=== PATIENT | male | born 1970 | race African-American/Black ===

== ENCOUNTER 2017-02-19 20:52 | Inpatient (IN) | payer OTHER ==
[~2017-02-19] VITALS: Ht 200.7 cm; Wt 166.5 kg
--- NOTE | 2017-02-20 00:45 | ERA ---
ER Documentation Chief Complaint Date/Time DATE: 02/20/17 TIME: 00:44 Chief Complaint Palpitation HPI The patient is a 47-year-old male, presenting to the ER because of palpitation intermittently for the last 2 days with shortness of breath, abdominal pain intermittently for the last 3 days, now sent with no vomiting, abdominal pain for 1 week with frequent urination. He also complained of chronic bilateral leg edema on the left than the right. He went to see his vascular surgeon today who sent him to the ER for further evaluation. He denies fever, chills, syncope, near syncope, chest pain with exertion or vomiting or diaphoresis. He does not smoke nor drink Past medical history: Diabetes mellitus, hypertension Past surgical history: None ROS All systems reviewed and are negative except as per history of present illness. Medications Home Meds Reported Medications Insulin Glargine* (Lantus*) 100 Unit/Ml Soln, SC BID, #1 VIAL 02/20/17 Gabapentin* (Gabapentin*) 600 Mg Tablet, 600 MG PO BID, #60 TAB 02/20/17 Hydrochlorothiazide* (Hydrochlorothiazide*) 25 Mg Tab, 25 MG PO DAILY, #30 TAB 02/20/17 Aspirin* (Aspirin* EC) 81 Mg Tablet.dr, 81 MG PO DAILY, TAB 02/20/17 Allergies Allergies: Coded Allergies: No Known Allergy (Unverified , 02/19/17) Physical Exam Vitals Vital Signs Date Time Temp Pulse Resp B/P Pulse Ox O2 Delivery O2 Flow Rate FiO2 02/20/17 01:40 106 20 143/97 99 Room Air 02/20/17 01:38 96 2.0 28 02/20/17 01:19 Nasal Cannula 2 02/19/17 21:01 99.8 132 20 144/101 96 Physical Exam Const: No acute distress. Head: Atraumatic. Eyes: Normal Conjunctiva. ENT: Normal External Ears, Nose and Mouth. Neck: Full range of motion. No meningismus. Resp: Clear to auscultation bilaterally. Cardio: Regular tachycardic Abd: Soft, non distended, normal bowel sounds, non tender. Skin: No petechiae or rashes. Back: No midline or flank tenderness. Ext: Bilateral calf tenderness, chronic discoloration, foul smell Neur: Awake and alert. No focal deficit Psych: Normal Mood and Affect. Result Diagram: 02/20/179902/20/17 0100 Results 24 hrs Laboratory Tests Test 02/19/17 21:03 02/20/17 00:55 02/20/17 01:00 02/20/17 01:10 Bedside Glucose 491mg/dL Blood Gas Specimen Source Blood arterial Arterial Blood Date Drawn 02/20/2017 1:28:41 AM Arterial Blood pH (Temp corrected) 7.455 Arterial Blood pCO2 (Temp correct) 32.1mmhg Arterial Blood pO2 (Temp corrected) 81.2mmHG Arterial Blood HCO3 22.1mmol/L Arterial Blood Base Excess -0.9mmol/L Arterial Blood Oxygen Saturation 95.6mmHG Ezequiel Test ACCEPTAB Arterial Blood Gas Puncture Site Right Radial Arterial Blood Carboxyhemoglobin 0.3% Arterial Blood Methemoglobin 0.5% Blood Gas A-a O2 Differential 73.4mmHg Oxyhemoglobin Percent 94.8% Total Hemoglobin 14.9g/dl Blood Gas Temperature 37.0C Blood Gas Actual Respiration Rate 22 Blood Gas Modality NASAL CANNULA FiO2 27.0% Blood Gas Notified Whom MG Blood Gas Notified Time 02/20/2017 1:35:17 AM White Blood Count 17.010^3/ul Red Blood Count 5.3910^6/ul Hemoglobin 14.1g/dl Hematocrit 41.0% Mean Corpuscular Volume 76.1fl Mean Corpuscular Hemoglobin 26.2pg Mean Corpuscular Hemoglobin Concent 34.4g/dl Red Cell Distribution Width 12.9% Platelet Count 77011^3/UL Mean Platelet Volume 10.5fl Neutrophils % 82.1% Lymphocytes % 8.0% Monocytes % 8.5% Eosinophils % 0.0% Basophils % 0.2% Nucleated Red Blood Cells % 0.0/100WBC Neutrophils # 14.010^3/ul Lymphocytes # 1.410^3/ul Monocytes # 1.410^3/ul Eosinophils # 0.010^3/ul Basophils # 0.010^3/ul Nucleated Red Blood Cells # 0.010^3/ul Prothrombin Time 15.3Sec Prothrombin Time Ratio 1.2 INR International Normalized Ratio 1.20 Activated Partial Thromboplast Time 31.3Sec D-Dimer 6864.82ng/ml D-Dimer Comment Sodium Level 126mmol/L Potassium Level 3.6mmol/L Chloride Level 90mmol/L Carbon Dioxide Level 25mmol/L Anion Gap 15 Blood Urea Nitrogen 10mg/dl Creatinine 1.09mg/dl Glucose Level 442mg/dl Calcium Level 8.5mg/dl Total Bilirubin 0.6mg/dl Direct Bilirubin 0.00mg/dl Indirect Bilirubin 0.6mg/dl Acetone Level (Chemistry) NEGATIVE Aspartate Amino Transf (AST/SGOT) 24IU/L Alanine Aminotransferase (ALT/SGPT) 27IU/L Alkaline Phosphatase 109IU/L Troponin I < 0.012ng/ml B-Type Natriuretic Peptide 62PG/ML Total Protein 8.0g/dl Albumin 4.0g/dl Globulin 4.00g/dl Albumin/Globulin Ratio 1.00 Lactic Acid Level 2.9mmol/L Test 02/20/17 01:49 02/20/17 03:35 02/20/17 04:18 Bedside Glucose 451mg/dL Lactic Acid Level 2.3mmol/L Bedside Urine pH (LAB) 5.5 Bedside Urine Protein (LAB) 2+ Bedside Urine Glucose (UA) 0.50% Bedside Urine Ketones (LAB) 3+ Bedside Urine Blood 2+ Bedside Urine Nitrite (LAB) Negative Bedside Urine Leukocyte Esterase (L Negative Current Medications Medications (Trade) Dose Ordered Sig/Hollie Route PRN Reason Start Time Stop Time Status Last Admin Dose Admin Sodium Chloride 5,220 ml @ 5,220 mls/hr BOLUS X1 ONCE IV 02/20/17 04:00 02/20/17 04:59 DC 02/20/17 04:07 Vancomycin HCl 250 ml @ 125 mls/hr ONCE IVPB 02/20/17 04:00 02/20/17 05:59 Levofloxacin/ Dextrose (Levaquin 750 Mg/ D5W 150 ml (Pmx)) 150 ml @ 100 mls/hr ONCE ONCE IVPB 02/20/17 04:00 02/20/17 05:29 02/20/17 04:07 Insulin Human Lispro (Humalog) 12 unit ONCE ONCE SC 02/20/17 03:39 02/20/17 03:40 DC 02/20/17 04:08 Enoxaparin Sodium (Lovenox) 160 mg Q12H SC 02/20/17 04:00 02/20/17 04:26 Procedures/MDM CT pulmonary angiogram is pending to rule out pulmonary embolism [place] [address] Radiology Main Line: [phone] DIAGNOSTIC IMAGING REPORT Patient: JUAN R MONTOYA : 1970 Age: 47 Sex: M MR #: [id number] DOS: 02/20/175 Ordering MD: AMAURY JORDAN MD Location: E/R Room/Bed: PROCEDURE: US bilateral lower extremity venous Doppler CLINICAL INDICATION: Bilateral swelling TECHNIQUE: Multiple sonographic images of the bilateral lower extremity deep venous system was obtained utilizing grayscale, color-flow, compressive sonography and Doppler imaging with augmentation. COMPARISON: There are no similar studies submitted for comparison. FINDINGS: There is normal compressibility and flow within the left common femoral, superficial femoral, popliteal, and calf veins. There is normal compressibility and flow within the right common femoral, superficial femoral, popliteal, and calf veins. IMPRESSION: No evidence of DVT within the lower extremities. RPTAT: HIKT .Ryan Law MD, MD Date Time Electronically viewed and signed by .Ryan Law MD, MD on 02/20/2017 01:58 .T/ CC: AMAURY JORDAN MD [place] [address] Radiology Main Line: [phone] DIAGNOSTIC IMAGING REPORT Patient: JUAN R MONTOYA : 1970 Age: 47 Sex: M MR #: [id number] DOS: 02/20/1754 Ordering MD: AMAURY JORDAN MD Location: E/R Room/Bed: PROCEDURE: XR Chest. CLINICAL INDICATION: Dyspnea. TECHNIQUE: Single frontal view of the chest. COMPARISON: None. FINDINGS: The cardiomediastinal silhouette is within normal limits. The lungs are clear. No signs of pleural fluid or pneumothorax are seen. The osseous structures and soft tissues are unremarkable. IMPRESSION: No evidence for active cardiopulmonary disease. RPTAT: [facility] Physician Shirley Date Time Electronically viewed and signed by Physician Shirley on 02/20/2017 01:19 RS/ CC: AMAURY JORDAN MD EKG: Read by emergency physician Rate/Rhythm: Sinus tachycardia 108 beats/min QRS, ST, T-waves: No ST elevation, no T inversion, artifacts Impression: Abnormal EKG MEDICAL MAKING DECISION: The patient is a 47-year-old male, presenting with acute severe sepsis, acute bilateral lower extremity cellulitis, acute diabetic hyperglycemia, acute hyponatremia, acute d-dimer elevation that is concerning for pulmonary embolism. He was treated with normal saline 30 mL/kg IV, vancomycin IV, Levaquin IV for acute severe sepsis, Humalog 12 units subcutaneously for acute hepatic hyperglycemia, Lovenox 160 mg subcu after discussing with the clinical pharmacist due to concerning for high probability of pulmonary embolism The differential diagnoses considered include but are not limited to asthma, COPD, pneumonia, pulmonary embolus, pleural effusion, congestive heart failure. Admit MDM: Patient's infectious symptoms have not stabilized and the patient is at risk of rapid decompensation. The patient will be admitted for careful hydration, antibiotic therapy, and infectious source control. Severe Sepsis criteria: Infectious source: Cellulitis End organ damage indicated by: Lactate > 2.0 mmol/L Sepsis Management: Time of recognition of severe sepsis/septic shock: 3:30 am Within 3 hours of recognition: Blood cultures x 2 before broad-spectrum antibiotics: Yes 30 ml/kg NS bolus completed Initial lactate 2.9 Repeat lactate pending Critical Care: Critical care time 35 minutes excluding billable procedure Emergent fluid management while maintaining close respiratory support. Provision of immediate and broad-spectrum antibiotic therapy. Simultaneous assessment for possible sources in order to direct targeted therapy. Consideration for invasive and chemical support to prevent cardiopulmonary collapse. Septic Shock Assessment: Any lactic acid > 4.0 no Persistent hypotension (SBP < 90 or 40 mmHg drop, MAP < 65) despite 30 mL/kg IV fluid bolusno Departure Diagnosis: Primary Impression: Severe sepsis Additional Impressions: Bilateral lower leg cellulitis Diabetes mellitus with hyperglycemia Hyponatremia Condition: Stable Comments I discussed the findings with the patient. I discussed the patient with his physician Dr. Shabazz who was made aware of the lab, the treatment, the patient condition the pending CT angiogram to rule out pulmonary embolism. The patient is admitted to telemetry AMAURY JORDAN MD Feb 20, 2017 00:45
--- NOTE | 2017-02-20 01:19 | RADRPT ---
PROCEDURE: XR Chest. CLINICAL INDICATION: Dyspnea. TECHNIQUE: Single frontal view of the chest. COMPARISON: None. FINDINGS: The cardiomediastinal silhouette is within normal limits. The lungs are clear. No signs of pleural f luid or pneumothorax are seen. The osseous structures and soft tissues are unremarkable. IMPRESSION: No evidence for active cardiopulmonary disease. RPTAT: [facility] Physician Shirley Date Time Electronically viewed and signed by Physician Shirley on 02/20/2017 01:19 RS/
[2017-02-20 01:35] LABS: ADD SCAN DIFF NO
[2017-02-20 01:36] LABS: AADO2 Arterial 73.4 mmHg (7.0-24.0); Allen Test ACCEPTAB; Arterial Base Excess -0.9 mmol/L (-3.0-3); Arterial COHb 0.3 % (0.0-3.0); Arterial Fraction of Oxyhgb 94.8 % (93.0-99.0); Arterial HCO3 22.1 mmol/L (22.0-26.0); Arterial MetHb 0.5 % (0.0-1.5); Arterial Total Hemglobin 14.9 g/dl (12.0-18.0); MODE NASAL CANNULA
[2017-02-20 01:41] LABS: BASOPHILS % 0.2 % (0.0-2.0); HEMOGLOBIN 14.1 g/dl (14.0-18.0); LYMPHOCYTES # 1.4 10^3/ul (0.8-2.9); MEAN CORPUSCULAR HEMOGLOBIN 26.2 pg (29.0-33.0); MEAN CORPUSCULAR HGB CONC 34.4 g/dl (32.0-37.0); MEAN CORPUSCULAR VOLUME 76.1 fl (82.0-101.0); MEAN PLATELET VOLUME 10.5 fl (7.4-10.4); MONOCYTE # 1.4 10^3/ul (0.3-0.9); MONOCYTES % 8.5 % (0.0-11.0); NEUTROPHILS % 82.1 % (39.0-77.0); PLATELET COUNT 279 10^3/UL (140-415); RED BLOOD COUNT 5.39 10^6/ul (4.70-6.10); RED CELL DISTRIBUTION WIDTH 12.9 % (11.5-14.5)
[2017-02-20 01:57] LABS: INR 1.2; PROTIME 15.3 Sec (12.2-14.2); PT RATIO 1.2
[2017-02-20 01:58] LABS: PARTIAL THROMBOPLASTIN TIME 31.3 Sec (25.0-35.0)
--- NOTE | 2017-02-20 01:59 | RADRPT ---
PROCEDURE: US bilateral lower extremity venous Doppler CLINICAL INDICATION: Bilateral swelling TECHNIQUE: Multiple sonographic images of the bilateral lower extremity deep venous system was obt ained utilizing grayscale, color-flow, compressive sonography and Doppler imaging with augmentation. COMPARISON: There are no similar studies submitted for comparison. FINDINGS: There is normal compressibility and flow within the left common femoral, superficial femoral, poplit eal, and calf veins. There is normal compressibility and flow within the right common femoral, superficial femoral, popli teal, and calf veins. IMPRESSION: No evidence of DVT within the lower extremities. RPTAT: HIKT .Ryan Law MD, MD Date Time Electronically viewed and signed by .Ryan Law MD, MD on 02/20/2017 01:58 .T/
[2017-02-20 02:16] LABS: D-DIMER 6864.82 ng/ml (<460)
[2017-02-20 03:07] LABS: ALANINE AMINOTRANSFERASE 27 IU/L (13-69); ALKALINE PHOSPHATASE 109 IU/L (42-121); ASPARTATE AMINO TRANSFERASE 24 IU/L (15-46); BILIRUBIN,INDIRECT 0.6 mg/dl (0-1.1); BILIRUBIN,TOTAL 0.6 mg/dl (0.2-1.3); BLOOD UREA NITROGEN 10 mg/dl (7-20); CALCIUM 8.5 mg/dl (8.4-10.2); CARBON DIOXIDE 25 mmol/L (21-31); CHLORIDE 90 mmol/L (97-110); CREATININE 1.09 mg/dl (0.61-1.24); POTASSIUM 3.6 mmol/L (3.5-5.1)
[2017-02-20 03:18] LABS: B-TYPE NATRIURETIC PEPTIDE 62 PG/ML (0-125)
[2017-02-20 03:22] LABS: GLUCOSE 442 mg/dl (70-220); TROPONIN-I < 0.012 ng/ml (0.00-0.12)
[2017-02-20 03:23] LABS: ACETONE NEGATIVE (NEGATIVE)
[2017-02-20] MEDS ORDERED: GABA-526 PO (03:24)
[2017-02-20] MEDS ORDERED: HYD25 PO (03:24)
[2017-02-20] MEDS ORDERED: LANT3I SC (03:24)
[2017-02-20] MEDS ORDERED: ASPI-664 PO (03:24)
[2017-02-20] MEDS ORDERED: INSULIN LISPRO 100 UNIT/ML VIAL SC ONE (03:39)
[2017-02-20] MEDS ORDERED: ENOXAPARIN 80 MG/0.8 ML SYG SC SCH (04:00)
[2017-02-20] MEDS ORDERED: VANCOMYCIN 1 GM (PMX) 250 ML IVPB SCH (04:00)
[2017-02-20] MEDS ORDERED: LEVOFLOXACIN 750MG/D5W (PMX) 150 ML IVPB ONE (04:00)
[2017-02-20] MEDS ORDERED: SOD CHLORIDE 0.9% IV ONE (04:00)
[2017-02-20 04:14] LABS: URINE BLOOD (Dip) POC 2+ (NEGATIVE)
[2017-02-20] MEDS ORDERED: IOHEXOL 300MG/ML 150 ML BTL ONE (05:44)
[2017-02-20] MEDS ORDERED: SOD CHLORIDE 0.9% 100 ML ONE (05:44)
--- NOTE | 2017-02-20 06:26 | RADRPT ---
PROCEDURE: CT angiogram of the chest with contrast. CLINICAL INDICATION: Chest pain. TECHNIQUE: CT angiogram of the chest was obtained using a multi-detector high-resolution CT. Con tiguous axial images were obtained during the dynamic injection of 100 cc of Omnipaque 300 intraveno us contrast. Coronal and sagittal reformatted images were obtained. 3-D reformatted images were al so obtained. Images were reviewed on a PACS workstation. One or more of the following dose reduction techniques were used: - Automated exposure control. - Adjustment of the mA and/or kV according to patient size. - Use of iterative reconstruction technique. Exam CTD/vol = 20.02 mGy. Total exam DLP = 802.15 mGy-cm. COMPARISON: None. FINDINGS: The main pulmonary artery followed to the segmental divisions are suboptimally opacified. There is no filling defect or evidence of central pulmonary embolism. Distal pulmonary arteries could not be evaluated due to suboptimal opacification. The heart is normal in size. There is no pericardial t hickening or effusion. The aorta is of normal course and caliber without evidence of aneurysm or di ssection. There is no evidence of chest wall mass. The visualized thyroid is unremarkable. There are no enla rged axillary lymph nodes. There are no enlarged mediastinal or hilar lymph nodes by CT criteria. There is mild bibasilar atelectasis. There is no parenchymal nodule or consolidation. There is no pleural effusion. The central tracheobronchial tree is within normal limits. There is a small hiatal hernia. Limited evaluation of the upper abdomen is unremarkable. IMPRESSION: No evidence of central pulmonary embolism or aortic dissection. Distal pulmonary arteries could not be evaluated due to suboptimal opacification. Mild bibasilar atelectasis. Small hiatal hernia. .Warren Chua MD, MD Date Time Electronically viewed and signed by .Warren Chua MD, MD on 02/20/2017 06:26 .T/
[2017-02-20] MEDS ORDERED: morphine 2 MG INJ IV PRN (08:30)
[2017-02-20] MEDS ORDERED: MAGNESIUM HYDROXIDE 30ML CUP PO PRN (08:30)
[2017-02-20] MEDS ORDERED: ACETAMINOPHEN 325 MG TAB PO PRN (08:30)
[2017-02-20] MEDS ORDERED: VANCOMYCIN IV PER PHARMACY XX SCH (08:30)
[2017-02-20] MEDS ORDERED: DOCUSATE SODIUM 100 MG CAP PO PRN (08:30)
[2017-02-20] MEDS ORDERED: METOCLOPRAMIDE 10 MG INJ IV ONE (08:30)
[2017-02-20] MEDS ORDERED: NACL 0.9% 3 ML SYG IV SCH (08:30)
[2017-02-20] MEDS ORDERED: METOCLOPRAMIDE 10 MG INJ IV PRN (08:30)
[2017-02-20] MEDS ORDERED: BISACODYL 10 MG SUPP PR PRN (08:30)
[2017-02-20] MEDS ORDERED: HYDROCODONE/APAP (5/325) TAB PO PRN ×2 (08:30)
[2017-02-20] MEDS: ASPIRIN (EC) 81 MG TAB PO SCH (08:52)
[2017-02-20] MEDS: GABAPENTIN 300 MG CAP PO SCH ×2 (08:55→21:27)
[2017-02-20] MEDS ORDERED: DEXTROSE 50% 50 ML SYRINGE IV PRN ×2 (09:00)
[2017-02-20] MEDS ORDERED: GLUCOSE GEL 15 GRAM TUBE PO PRN ×2 (09:00)
[2017-02-20] MEDS ORDERED: ENOXAPARIN 30 MG/0.3 ML SYG SC SCH (09:00)
[2017-02-20] MEDS ORDERED: LEVOFLOXACIN 750MG/D5W (PMX) 150 ML IVPB SCH (09:00)
[2017-02-20] MEDS ORDERED: GLUCOSE GEL 15 GRAM TUBE BUCCAL PRN (09:00)
[2017-02-20] MEDS ORDERED: GLUCAGON 1 MG INJ IM PRN (09:00)
[2017-02-20] MEDS: INSULIN GLARGINE [LANtus] 3 ML PEN SC SCH ×2 (09:10→21:21)
[2017-02-20] MEDS: SOD CHLORIDE 0.9% 1,000 ML IV SCH ×2 (09:12→16:33)
--- NOTE | 2017-02-20 09:13 | HP ---
Date/Time of Note Date/Time of Note DATE: 02/20/17 TIME: 08:52 Assessment/Plan VTE Prophylaxis VTE Prophylaxis Intervention: LMWH Assessment/Plan Assessment/Plan 47-year-old male: 1. Lower extremity cellulitis, acute on chronic, left lower extremity infection more acute than the right, patient noted to have foul-smelling coming out of both feet with areas of cyanosis possibly necrosis of his toes, he does have a chronic ulcer on his right great toe with a foul-smelling dressing. Wound care has been ordered, wound cultures to be collected, IV antibiotics, IV fluids, podiatry, infectious disease and vascular surgery consult ESR and CRP pending Further recommendation per podiatry and infectious disease. 2. Sepsis likely secondary to cellulitis and diabetic wound, trend lactic acid , IV fluids, follow up on cultures, continue current broad-spectrum antibiotics including vancomycin and Levaquin 3. Diabetes mellitus, uncontrolled. Resume adequate insulin regimen including long-acting and mealtime insulin along with sliding scale insulin. Check hemoglobin A1c. Continue IV fluids. Diabetic education will be ordered. 4. Hyponatremia, likely hypovolemic and secondary to hyperglycemia, corrected sodium level actually at 131, continue normal saline, blood sugar control. Renal function is stable 5. Nausea vomiting likely secondary to hypoglycemia, blood sugar control, Reglan and Zofran as needed. 6. Morbid obesity: Lifestyle modification 7. Bilateral lower extremity edema most likely consistent with lymphedema and poor venous return, also with ongoing infection, will treat underlying infection , Lasix as needed once more stable. Prophylaxis: Lovenox for DVT prophylaxis, Protonix for GI prophylaxis Disposition: Admit to telemetry, infectious disease vascular surgery and podiatry consult to be obtained. HPI/ROS Admit Date/Time Admit Date/Time Hx of Present Illness Chief complaint: Shortness of breath, left lower extremity redness History of presenting illness: This is a 47-year-old male with diabetes mellitus insulin-dependent, diabetic neuropathy, likely diabetic gastroparesis, chronic diabetic foot ulcer primarily right lower extremity with unfortunate poor hygiene and poor care to his lower extremities who apparently was referred to vascular surgery Dr. Henning and saw Dr. Henning yesterday who after evaluating him sent the patient to the emergency department for evaluation. The patient reports that for the past 2-3 days he has been having increasing shortness of breath, he had episodes of fevers and chills, he also noted increased erythema on his left lower extremity. Patient reports chronic wounds on his right lower extremity primarily and foul smell from his right lower extremity primarily which is at this point chronic. He has been going to a clinic for the past 2 years for care and recently changed his insurance therefore has been referred to a new physician. In the emergency department the patient was noted to be significantly tachycardic and seemed to be hypoxic therefore per emergency department physician he concentrated his study primarily on ruling out venous thromboembolism. Patient had Dopplers of the lower extremity which was negative for DVT, patient had CT angiogram of the chest due to an elevated d-dimer and it was negative for pulmonary embolus. He was treated for his lower extremity cellulitis with vancomycin and Levaquin, lactic acid is between 2.5 and 3.0. Vital signs are much more stable this morning patient did receive IV fluids which will be continued at this point. Patient is a diabetic likely noncompliant versus hypoglycemia due to infection but on arrival his blood sugar was up to 440. He will be receiving Lantus today along with sliding scale insulin there is no signs of DKA. Patient is admitted to telemetry primarily for diabetic foot infection and cellulitis. We will have podiatry, infectious disease and vascular surgery consulted. Patient also reports episode of abdominal pain some epigastric discomfort some discomfort in his chest also ongoing diarrhea, nausea and vomiting, he reports that it has happened to him before and is usually related to uncontrolled elevated blood sugar which leads me to believe that he is most likely has diabetic gastroparesis. ROS Constitutional: fatigue, nausea Eyes: no complaints ENT: no complaints Respiratory: shortness of breath Cardiovascular: no complaints Gastrointestinal: diarrhea, nausea, vomiting Genitourinary: no complaints Musculoskeletal: no complaints Skin: erythema (L>R lower ext ) Neurologic: no complaints PMH/Family/Social Past Medical History Morbid obesity Diabetes mellitus insulin-requiring Diabetic neuropathy Diabetic gastroparesis likely Diabetic foot ulcers Right foot Medical History: diabetes, hypertension Past Surgical History None Family History Significant Family History: no pertinent family hx Social History Alcohol Use: none Smoking Status: Never smoker Drug Use: none Exam/Review of Systems Vital Signs Vitals Vital Signs Date Time Temp Pulse Resp B/P Pulse Ox O2 Delivery O2 Flow Rate FiO2 02/20/17 07:10 90 18 112/68 98 Nasal Cannula 2.0 02/20/17 05:45 98.9 02/20/17 01:38 28 Exam Constitutional: alert, oriented, other (Obese), well developed Psych: no complaints Head: normocephalic Eyes: EOMI, nl conjunctiva Neck: supple Respiratory: clear to auscultation, normal air movement Cardiovascular: nl pulses, regular rate and rhythm Gastrointestinal: soft, tender (Minimal epigastric) Extremities: edema (Bilateral lower extremity, right greater than left), other (Erythema left lower leg greater than right, foul smell bilateral feet, cyanotic areas bilateral feet, ulcerations bilateral feet), tenderness ( Bilateral feet right greater than left) Neurological: ANTHROPOLOGY FACULTY MEMBER II-XII intact, lethargic, nl mental status, nl speech Labs Result Diagram: 02/20/17 01002/20/17 010 Medications Medications Home medications: Aspirin 81 mg p.o. daily Lantus 60 units subcutaneously nightly Gabapentin 600 mg p.o. twice daily Hydrochlorothiazide 25 mg p.o. daily Current Medications Aspirin (Halfprin) 81 mg DAILY PO ; Start 02/20/17 at 09:00 Gabapentin (Neurontin) 600 mg BID PO ; Start 02/20/17 at 09:00 Insulin Glargine (Lantus) 20 unit BID@08,20 SC ; Start 02/20/17 at 08:30 Diagnostic Test (Pha) 1 ea 1 ea 02 XX ; Start 02/21/17 at 02:00 Sodium Chloride (NS) 1,000 ml @ 125 mls/hr Q8H IV ; Start 02/20/17 at 08:30 Ondansetron HCl (Zofran Inj) 4 mg Q6H PRN IV NAUSEA AND/OR VOMITING; Start at 08:30; Status UNV Metoclopramide HCl (Reglan) 10 mg Q6H PRN IV NAUSEA AND/OR VOMITING; Start at 08:30; Status UNV Acetaminophen (Tylenol Tab) 650 mg Q6H PRN PO PAIN LEVEL 1-3 OR FEVER; Start at 08:30; Status UNV Acetaminophen/ Hydrocodone Bitart ([place] (5/325)) 1 tab Q6H PRN PO PAIN LEVEL 4 -6; Start 02/20/17 at 08:30; Status UNV Acetaminophen/ Hydrocodone Bitart ([place] (5/325)) 2 tab Q6H PRN PO PAIN LEVEL 7 -10; Start 02/20/17 at 08:30; Status UNV Morphine Sulfate (morphine) 2 mg Q4H PRN IV PAIN LEVEL 7-10; Start 02/20/17 at 08:30; Status UNV Docusate Sodium (Colace) 100 mg Q12H PRN PO CONSTIPATION; Start 02/20/17 at 08: 30; Status UNV Magnesium Hydroxide (Milk Of Mag) 30 ml DAILY PRN PO CONSTIPATION; Start at 08:30; Status UNV Bisacodyl (Dulcolax Supp) [address] CONSTIPATION; Start 02/20/17 at 08 :30; Status UNV Pantoprazole (Protonix Tab) 40 mg DAILY@06 PO ; Start 02/21/17 at 06:00; Status UNV Miscellaneous Information 1 ea NOTE XX ; Start 02/20/17 at 09:00 Glucose (Glutose) 15 gm Q15M PRN PO DECREASED GLUCOSE; Start 02/20/17 at 09:00 Glucose (Glutose) 22.5 gm Q15M PRN PO DECREASED GLUCOSE; Start 02/20/17 at 09: 00 Dextrose (D50w Syringe) 25 ml Q15M PRN IV DECREASED GLUCOSE; Start 02/20/17 at 09:00 Dextrose (D50w Syringe) 50 ml Q15M PRN IV DECREASED GLUCOSE; Start 02/20/17 at 09:00 Glucagon (Glucagen) 1 mg Q15M PRN IM DECREASED GLUCOSE; Start 02/20/17 at 09:00 Glucose (Glutose) 15 gm Q15M PRN BUCCAL DECREASED GLUCOSE; Start 02/20/17 at 09 :00 Enoxaparin Sodium 30 mg 30 mg BID SC ; Start 02/20/17 at 21:00 Levofloxacin/ Dextrose (Levaquin 750 Mg/ D5W 150 ml (Pmx)) 150 ml @ 100 mls/hr Q24H IVPB ; Start 02/21/17 at 04:00 Procedures Procedures PROCEDURE: US bilateral lower extremity venous Doppler CLINICAL INDICATION: Bilateral swelling TECHNIQUE: Multiple sonographic images of the bilateral lower extremity deep venous system was obtained utilizing grayscale, color-flow, compressive sonography and Doppler imaging with augmentation. COMPARISON: There are no similar studies submitted for comparison. FINDINGS: There is normal compressibility and flow within the left common femoral, superficial femoral, popliteal, and calf veins. There is normal compressibility and flow within the right common femoral, superficial femoral, popliteal, and calf veins. IMPRESSION: No evidence of DVT within the lower extremities. RPTAT: HIKT .Ryan Law MD, Date Time Electronically viewed and signed by .Ryan Law MD, on 02/20/2017 01:58 PROCEDURE: XR Chest. CLINICAL INDICATION: Dyspnea. TECHNIQUE: Single frontal view of the chest. COMPARISON: None. FINDINGS: The cardiomediastinal silhouette is within normal limits. The lungs are clear. No signs of pleural fluid or pneumothorax are seen. The osseous structures and soft tissues are unremarkable. IMPRESSION: No evidence for active cardiopulmonary disease. RPTAT: [facility] Physician Shirley Date Time Electronically viewed and signed by Physician Shirley on 02/20/2017 01:19 PROCEDURE: CT angiogram of the chest with contrast. CLINICAL INDICATION: Chest pain. TECHNIQUE: CT angiogram of the chest was obtained using a multi-detector high -resolution CT. Contiguous axial images were obtained during the dynamic injection of 100 cc of Omnipaque 300 intravenous contrast. Coronal and sagittal reformatted images were obtained. 3-D reformatted images were also obtained. Images were reviewed on a PACS workstation. One or more of the following dose reduction techniques were used: - Automated exposure control. - Adjustment of the mA and/or kV according to patient size. - Use of iterative reconstruction technique. Exam CTD/vol = 20.02 mGy. Total exam DLP = 802.15 mGy-cm. COMPARISON: None. FINDINGS: The main pulmonary artery followed to the segmental divisions are suboptimally opacified. There is no filling defect or evidence of central pulmonary embolism. Distal pulmonary arteries could not be evaluated due to suboptimal opacification. The heart is normal in size. There is no pericardial thickening or effusion. The aorta is of normal course and caliber without evidence of aneurysm or dissection. There is no evidence of chest wall mass. The visualized thyroid is unremarkable. There are no enlarged axillary lymph nodes. There are no enlarged mediastinal or hilar lymph nodes by CT criteria. There is mild bibasilar atelectasis. There is no parenchymal nodule or consolidation. There is no pleural effusion. The central tracheobronchial tree is within normal limits. There is a small hiatal hernia. Limited evaluation of the upper abdomen is unremarkable. IMPRESSION: No evidence of central pulmonary embolism or aortic dissection. Distal pulmonary arteries could not be evaluated due to suboptimal opacification. Mild bibasilar atelectasis. Small hiatal hernia. .Warren Chua MD, Date Time Electronically viewed and signed by .Warren Chua MD, on 02/20/2017 06:26 SALLY BOLANOS Feb 20, 2017 09:02
[2017-02-20] MEDS ORDERED: VANCOMYCIN 2 GM in SOD CHLORIDE 0.9% 500 ML IVPB SCH (09:30)
[2017-02-20 09:57] LABS: ADD SCAN DIFF NO; BASOPHILS % 0.3 % (0.0-2.0); EOSINOPHILS % 0.1 % (0.0-7.0); HEMATOCRIT 38.9 % (42.0-52.0); LYMPHOCYTES # 1.2 10^3/ul (0.8-2.9); LYMPHOCYTES % 8.5 % (15.0-51.0); MEAN CORPUSCULAR HEMOGLOBIN 26.2 pg (29.0-33.0); MEAN CORPUSCULAR HGB CONC 33.4 g/dl (32.0-37.0); MEAN CORPUSCULAR VOLUME 78.4 fl (82.0-101.0); MEAN PLATELET VOLUME 10.6 fl (7.4-10.4); MONOCYTE # 1.2 10^3/ul (0.3-0.9); MONOCYTES % 8.7 % (0.0-11.0); NEUTROPHIL # 11.1 10^3/ul (1.6-7.5); NEUTROPHILS % 81.4 % (39.0-77.0); PLATELET COUNT 236 10^3/UL (140-415); RED BLOOD COUNT 4.96 10^6/ul (4.70-6.10); RED CELL DISTRIBUTION WIDTH 12.9 % (11.5-14.5); WHITE BLOOD COUNT 13.6 10^3/ul (4.8-10.8)
[2017-02-20 10:06] LABS: CALCIUM 8.1 mg/dl (8.4-10.2); CREATININE 0.79 mg/dl (0.61-1.24); POTASSIUM 3.3 mmol/L (3.5-5.1)
[2017-02-20] MEDS: ONDANSETRON 4 MG INJ IV PRN (11:34)
[2017-02-20] MEDS: INSULIN ASPART [NOVOLOG] 3 ML PEN SC SCH ×5 (11:39→21:23)
[2017-02-20 14:00] VITALS: TEMP 98.6
[2017-02-20] MEDS: METOCLOPRAMIDE 10 MG INJ IV SCH (17:57)
--- NOTE | 2017-02-20 18:26 | CONS ---
Date/Time of Note Date/Time of Note DATE: 02/20/17 TIME: 18:24 Assessment/Plan Assessment/Plan Chief Complaint/Hosp Course 47-year-old M w/ diabetes mellitus recently started on insulin, neuropathy, morbid obesity with chronic BLE edema and foot wounds w/ evidence of arterial insufficiency on exam and outside arterial u/s Plan: -Appreciate medical management -Cont treatment for sepsis, hyperglycemia -Agree w/ Podiatry and wound care consult -Pt will need CTA of abd/pelvis w/ BLE runoff to further evaluate vasculature - will order -Will follow Thank you and please call with questions Problems: Consultation Date/Type/Reason Admit Date/Time Date of Consultation: Feb 20, 2017 Reason for Consultation BLE diabetic foot wounds and edema Referring Provider: SALLY BOLANOS of Present Illness 47-year-old M w/ diabetes mellitus recently started on insulin, neuropathy, morbid obesity with chronic BLE edema and foot wounds was initially seen and evaluated at outpatient Vascular Surgery clinic and found to be tachycardic, SOB , diaphoretic with unsteady gait and lethargy and was advised to be evaluated immediately at ER due to likely infectious source w/ possible sepsis. Pt was offered to wait for ambulance to bring to ER but pt vehemently refused and said he will go the ER on his own. He arrived overnight to ER. Pt says he had RLE edema and chronic 1st toe foot wound since 03/2016. He has not seen any physician until recently due to lack of insurance. He was started on insulin for DM only recently even though he was diagnosed over 6 years ago w/ DM. He says he wasn't on any DM treatment due to lack of insurance. He now says he has developed LLE edema along with new 3rd toe wound only recently. He also noted that in past few days, he has been having increasing shortness of breath, fevers and chills and increased redness on left lower extremity. In ER he was evaluated for possible PE/DVT, which was negative and then found to be septic and hyperglycemic (BG 400's) and was treated w/ IVF, insulin and abx. Patient was admitted to telemetry but still in ER due to bed availability. He currently feels better since arrival to ER and after treatment. His vitals and labs are improved. He had outside BLE arterial u/s that suggested possible R iliac artery disease. Constitutional: fatigue, nausea Eyes: no complaints ENT: no complaints Respiratory: shortness of breath Cardiovascular: no complaints Gastrointestinal: diarrhea, nausea, vomiting Genitourinary: increased urination Musculoskeletal: bilateral foot wounds Skin: erythema (L>RLE), swelling BLE Neurologic: no complaints Eyes: no complaints ENT: no complaints Respiratory: shortness of breath Cardiovascular: no complaints Gastrointestinal: diarrhea, nausea, vomiting Genitourinary: no complaints Musculoskeletal: no complaints Skin: erythema (L>R lower ext ) Neurologic: no complaints Psychological: no complaints Past Medical History Morbid obesity Diabetes mellitus insulin-requiring Diabetic neuropathy Diabetic gastroparesis Diabetic foot ulcers x1 year hypertension Chronic RLE edema Medical History: diabetes, hypertension Past Surgical History Denies Social History Alcohol Use: none Smoking Status: Never smoker Drug Use: none Exam/Review of Systems Vital Signs Vitals Vital Signs Date Time Temp Pulse Resp B/P Pulse Ox O2 Delivery O2 Flow Rate FiO2 02/20/17 16:00 92 18 126/71 98 Nasal Cannula 2.0 02/20/17 14:00 98.6 02/20/17 01:38 28 Exam Gen: Awake, alert, oriented x3, NAD Neck: supple Lungs: clear Heart: Reg Abd: obese, soft, NT, ND Extr: Marked BLE edema charles at distal legs w/ erythema; R foot 1st toe wound w/ foul-smelling odor, mild drainage; L foot 3rd toe wound w/ malodor as well, mild drainage Pulses: Palp L femoral and DP pulses; non-palp RLE pulses Results Result Diagram: 02/20/17 0943 02/20/17 0913 Results 24 hrs Laboratory Tests Test 02/19/17 21:03 02/20/17 00:55 02/20/17 01:00 02/20/17 01:10 Bedside Glucose 491 *H Blood Gas Specimen Source Blood arterial Arterial Blood Date Drawn 02/20/2017 1:28:41 AM Arterial Blood pH (Temp corrected) 7.455 H Arterial Blood pCO2 (Temp correct) 32.1 L Arterial Blood pO2 (Temp corrected) 81.2 Arterial Blood HCO3 22.1 Arterial Blood Base Excess -0.9 Arterial Blood Oxygen Saturation 95.6 Ezequiel Test ACCEPTAB Arterial Blood Gas Puncture Site Right Radial Arterial Blood Carboxyhemoglobin 0.3 Arterial Blood Methemoglobin 0.5 Blood Gas A-a O2 Differential 73.4 H Oxyhemoglobin Percent 94.8 Total Hemoglobin 14.9 Blood Gas Temperature 37.0 Blood Gas Actual Respiration Rate 22 Blood Gas Modality NASAL CANNULA FiO2 27.0 Blood Gas Notified Whom MG Blood Gas Notified Time 02/20/2017 1:35:17 AM White Blood Count 17.0 H Red Blood Count 5.39 Hemoglobin 14.1 Hematocrit 41.0 L Mean Corpuscular Volume 76.1 L Mean Corpuscular Hemoglobin 26.2 L Mean Corpuscular Hemoglobin Concent 34.4 Red Cell Distribution Width 12.9 Platelet Count 279 Mean Platelet Volume 10.5 H Neutrophils % 82.1 H Lymphocytes % 8.0 L Monocytes % 8.5 Eosinophils % 0.0 Basophils % 0.2 Nucleated Red Blood Cells % 0.0 Neutrophils # 14.0 H Lymphocytes # 1.4 Monocytes # 1.4 H Eosinophils # 0.0 Basophils # 0.0 Nucleated Red Blood Cells # 0.0 Prothrombin Time 15.3 H Prothrombin Time Ratio 1.2 INR International Normalized Ratio 1.20 Activated Partial Thromboplast Time 31.3 D-Dimer 6864.82 H D-Dimer Comment Sodium Level 126 L Potassium Level 3.6 Chloride Level 90 L Carbon Dioxide Level 25 Anion Gap 15 Blood Urea Nitrogen 10 Creatinine 1.09 Glucose Level 442 *H Hemoglobin A1c 12.2 H Calcium Level 8.5 Total Bilirubin 0.6 Direct Bilirubin 0.00 Indirect Bilirubin 0.6 Acetone Level (Chemistry) NEGATIVE Aspartate Amino Transf (AST/SGOT) 24 Alanine Aminotransferase (ALT/SGPT) 27 Alkaline Phosphatase 109 Troponin I < 0.012 B-Type Natriuretic Peptide 62 Total Protein 8.0 Albumin 4.0 Globulin 4.00 H Albumin/Globulin Ratio 1.00 Lactic Acid Level 2.9 *H Test 02/20/17 01:49 02/20/17 03:35 02/20/17 04:18 02/20/17 06:53 Bedside Glucose 451 *H Lactic Acid Level 2.3 *H 3.0 *H Bedside Urine pH (LAB) 5.5 Bedside Urine Protein (LAB) 2+ H Bedside Urine Glucose (UA) 0.50% H Bedside Urine Ketones (LAB) 3+ H Bedside Urine Blood 2+ H Bedside Urine Nitrite (LAB) Negative Bedside Urine Leukocyte Esterase (L Negative Test 02/20/17 09:01 02/20/17 09:13 02/20/17 09:43 02/20/17 10:18 Bedside Glucose 294 H Sodium Level 127 L Potassium Level 3.3 L Chloride Level 95 L Carbon Dioxide Level 26 Anion Gap 9 # Blood Urea Nitrogen 9 Creatinine 0.79 Glucose Level 316 H Lactic Acid Level 2.6 *H Calcium Level 8.1 L White Blood Count 13.6 H Red Blood Count 4.96 Hemoglobin 13.0 L Hematocrit 38.9 L Mean Corpuscular Volume 78.4 L Mean Corpuscular Hemoglobin 26.2 L Mean Corpuscular Hemoglobin Concent 33.4 Red Cell Distribution Width 12.9 Platelet Count 236 Mean Platelet Volume 10.6 H Neutrophils % 81.4 H Lymphocytes % 8.5 L Monocytes % 8.7 Eosinophils % 0.1 Basophils % 0.3 Nucleated Red Blood Cells % 0.0 Neutrophils # 11.1 H Lymphocytes # 1.2 Monocytes # 1.2 H Eosinophils # 0.0 Basophils # 0.0 Nucleated Red Blood Cells # 0.0 C-Reactive Protein 35.5 H Erythrocyte Sedimentation Rate 90 H Test 02/20/17 11:29 02/20/17 17:53 Bedside Glucose 344 H 215 Medications Medications Current Medications Aspirin (Halfprin) 81 mg DAILY PO Last administered on 02/20/17 08:52; Admin Dose 81 MG; Start 02/20/17 at 09:00 Gabapentin (Neurontin) 600 mg BID PO Last administered on 02/20/17 08:55; Admin Dose 600 MG; Start 02/20/17 at 09:00 Insulin Glargine (Lantus) 20 unit BID@08,20 SC Last administered on 02/20/17 09:10; Admin Dose 20 UNIT; Start 02/20/17 at 08:30 Diagnostic Test (Pha) 1 ea 1 ea 02 XX ; Start 02/21/17 at 02:00 Sodium Chloride (NS) 1,000 ml @ 125 mls/hr Q8H IV Last administered on 16:33; Admin Dose 125 MLS/HR; Start 02/20/17 at 08:30 Ondansetron HCl (Zofran Inj) 4 mg Q6H PRN IV NAUSEA AND/OR VOMITING Last administered on 02/20/17 11:34; Admin Dose 4 MG; Start 02/20/17 at 08:30 Metoclopramide HCl (Reglan) 10 mg Q6H PRN IV NAUSEA AND/OR VOMITING Last administered on 02/20/17t 15:56; Admin Dose 10 MG; Start 02/20/17 at 08:30 Acetaminophen (Tylenol Tab) 650 mg Q6H PRN PO PAIN LEVEL 1-3 OR FEVER; Start at 08:30 Acetaminophen/ Hydrocodone Bitart ([place] (5/325)) 1 tab Q6H PRN PO PAIN LEVEL 4 -6; Start 02/20/17 at 08:30 Acetaminophen/ Hydrocodone Bitart ([place] (5/325)) 2 tab Q6H PRN PO PAIN LEVEL 7 -10; Start 02/20/17 at 08:30 Morphine Sulfate (morphine) 2 mg Q4H PRN IV PAIN LEVEL 7-10; Start 02/20/17 at 08:30 Docusate Sodium (Colace) 100 mg Q12H PRN PO CONSTIPATION; Start 02/20/17 at 08: 30 Magnesium Hydroxide (Milk Of Mag) 30 ml DAILY PRN PO CONSTIPATION; Start at 08:30 Bisacodyl (Dulcolax Supp) 10 mg DAILY PRN [place] CONSTIPATION; Start 02/20/17 at 08 :30 Pantoprazole (Protonix Tab) 40 mg DAILY@06 PO ; Start 02/21/17 at 06:00 Miscellaneous Information 1 ea NOTE XX ; Start 02/20/17 at 09:00 Glucose (Glutose) 15 gm Q15M PRN PO DECREASED GLUCOSE; Start 02/20/17 at 09:00 Glucose (Glutose) 22.5 gm Q15M PRN PO DECREASED GLUCOSE; Start 02/20/17 at 09: 00 Dextrose (D50w Syringe) 25 ml Q15M PRN IV DECREASED GLUCOSE; Start 02/20/17 at 09:00 Dextrose (D50w Syringe) 50 ml Q15M PRN IV DECREASED GLUCOSE; Start 02/20/17 at 09:00 Glucagon (Glucagen) 1 mg Q15M PRN IM DECREASED GLUCOSE; Start 02/20/17 at 09:00 Glucose (Glutose) 15 gm Q15M PRN BUCCAL DECREASED GLUCOSE; Start 02/20/17 at 09 :00 Enoxaparin Sodium 30 mg 30 mg BID SC ; Start 02/20/17 at 21:00 Levofloxacin/ Dextrose 150 ml @ 100 mls/hr Q24H IVPB ; Start 02/21/17 at 04:00 Vancomycin HCl/ Sodium Chloride (Vancocin/NS) 250 ml @ 83.333 mls/ hr Q12H IVPB ; Start 02/20/17 at 22:00 Miscellaneous Information (*Rx Drug Level Order Reminder*) VANCOMYCIN TROUGH ON 02/07... ONCE ONCE XX ; Start 02/21/17 at 21:00; Stop 02/21/17 at 21:01 Metoclopramide HCl (Reglan) 10 mg Q6 IV ; Start 02/20/17 at 18:00 VIKRAM HERNANDEZ MD Feb 20, 2017 18:26
[2017-02-20 18:34] LABS: ANION GAP 21 (8-16); SODIUM 132 mmol/L (135-144)
[2017-02-20 20:35] VITALS: BP 115/59; RESP 18
[2017-02-20 20:36] VITALS: PULSE 96
[2017-02-20 20:40] VITALS: Ht 200.7 cm; Wt 166.5 kg
[2017-02-20] MEDS: ENOXAPARIN 30 MG/0.3 ML SYG SC SCH (21:24)
[2017-02-20 22:31] VITALS: BP 112/66; PULSE 90; RESP 20
[2017-02-20] MEDS: VANCOMYCIN 1.5 GM in SOD CHLORIDE 0.9% 250 ML IVPB SCH (23:59)
[2017-02-21] VITALS (12 sets, daily range): BP systolic 101–129; BP diastolic 56–75; PULSE 96–108; RESP 16–21
[2017-02-21] MEDS: SOD CHLORIDE 0.9% 1,000 ML IV SCH ×3 (00:30→15:48)
[2017-02-21] MEDS: METOCLOPRAMIDE 10 MG INJ IV SCH ×4 (00:39→18:19)
[2017-02-21] MEDS ORDERED: PENDING SANTYL ORDER FOR WOUND CARE XX PRN (01:00)
[2017-02-21] MEDS ORDERED: hydrALAzine 20 MG INJ IV PRN (01:00)
[2017-02-21] MEDS: ACCU-CHEK XX SCH (02:00)
[2017-02-21] MEDS: LEVOFLOXACIN 750MG/D5W (PMX) 150 ML IVPB SCH (04:00)
[2017-02-21] MEDS: PANTOPRAZOLE (EC) 40 MG TAB PO SCH (05:20)
[2017-02-21] MEDS: INSULIN ASPART [NOVOLOG] 3 ML PEN SC SCH ×7 (08:00→21:00)
[2017-02-21] MEDS: INSULIN GLARGINE [LANtus] 3 ML PEN SC SCH ×2 (08:16→22:16)
[2017-02-21 08:17] LABS: ADD SCAN DIFF NO
[2017-02-21 08:24] LABS: BASOPHILS % 0.2 % (0.0-2.0); EOSINOPHILS % 0.1 % (0.0-7.0); HEMATOCRIT 35.8 % (42.0-52.0); HEMOGLOBIN 12.1 g/dl (14.0-18.0); LYMPHOCYTES % 7.6 % (15.0-51.0); MEAN CORPUSCULAR HEMOGLOBIN 25.6 pg (29.0-33.0); MEAN CORPUSCULAR HGB CONC 33.8 g/dl (32.0-37.0); MEAN CORPUSCULAR VOLUME 75.7 fl (82.0-101.0); MEAN PLATELET VOLUME 10.2 fl (7.4-10.4); MONOCYTE # 0.9 10^3/ul (0.3-0.9); MONOCYTES % 6.6 % (0.0-11.0); NEUTROPHIL # 11.2 10^3/ul (1.6-7.5); NEUTROPHILS % 84.4 % (39.0-77.0); PLATELET COUNT 264 10^3/UL (140-415); RED BLOOD COUNT 4.73 10^6/ul (4.70-6.10); WHITE BLOOD COUNT 13.3 10^3/ul (4.8-10.8)
[2017-02-21 08:37] LABS: CREATININE 0.78 mg/dl (0.61-1.24); MAGNESIUM 1.8 mg/dl (1.7-2.5)
[2017-02-21] MEDS ORDERED: SOD CHLORIDE 0.9% 100 ML ONE (10:16)
[2017-02-21] MEDS ORDERED: IOHEXOL 100 ML ONE (10:16)
[2017-02-21] MEDS ORDERED: IOHEXOL 350MG/ML 50 ML BTL ONE (10:16)
--- NOTE | 2017-02-21 10:37 | CONS ---
Date/Time of Note Date/Time of Note DATE: 02/21/17 TIME: 10:23 Assessment/Plan Assessment/Plan Problems: (1) Open wound of right foot (2) Cellulitis of right foot (3) Diabetes mellitus with hyperglycemia Status: Acute (4) Bilateral lower leg cellulitis Status: Acute Additional Assessment/Plan Patient's condition is severe and his prognosis is poor. I have discussed and counseled extensively regarding his condition. He is going to require surgical management to initially include debridement of the necrotic tissue and bone culture. Patient may end up having need for amputation of the left hallux and left second toe along with amputation of the right third toe pending failed treatment with debridements and IV antibiotics. I also recommend highly to have patient evaluated for hyperbaric oxygen treatment. This can be done as an outpatient basis. Ordered MRI and X-Ray of bilateral feet. Will follow up with imaging studies when available. Thank you again for involving me in the care of this patient. If you have any questions regarding this case, please feel free to contact me at pager: [phone] or reach me at mobile: [phone]. Consultation Date/Type/Reason Admit Date/Time Date of Consultation: Feb 21, 2017 Type of Consultation: Foot and ankle surgery Reason for Consultation Open wound right big toe Hx of Present Illness Thank you very much for involving me in the care of this patient. As you very well know this is a 47-year-old male patient with multiple medical problems including diabetes mellitus, diabetic neuropathy, chronic diabetic foot ulcer who presented to the emergency room with bad hygiene with infection of his right foot. I was consulted for evaluation and treatment. Patient has been seeing vascular surgery, Dr. Henning who apparently saw the patient yesterday and sent him to the emergency room for further evaluation. Patient reports of increased episodes of shortness of breath, fever and chills recently. Patient reports that he had increased smell from his foot. Constitutional: No chills, No diaphoresis, No disoriented, No febrile, No improved, No no complaints, No other, No poor po, No requiring IVF, No requiring O2 Eyes: no complaints, No discharge, No other, No pain, No redness, No visual change ENT: no complaints, No bleeding, No congestion, No discharge, No dysphagia, No other, No pain, No sore throat Respiratory: shortness of breath, No cough, No no complaints, No other, No pain, No pleuritic pain, No sputum, No wheezing Cardiovascular: no complaints Gastrointestinal: diarrhea, nausea, vomiting Genitourinary: no complaints Musculoskeletal: no complaints Skin: erythema (L>R lower ext ) Neurologic: no complaints Psychological: no complaints Past Medical History As per history of present illness. Medical History: diabetes, hypertension Past Surgical History As per history of present illness. Social History As per history of present illness. Alcohol Use: none Smoking Status: Never smoker Drug Use: none Exam/Review of Systems Vital Signs Vitals Vital Signs Date Time Temp Pulse Resp B/P Pulse Ox O2 Delivery O2 Flow Rate FiO2 02/21/17 08:20 103 02/21/17 08:20 98.0 18 121/75 98 02/20/17 22:31 Nasal Cannula 02/20/17 18:00 2.0 02/20/17 01:38 28 Intake and Output 02/20/17 02/20/17 02/21/17 15:00 23:00 07:00 Intake Total 800 ml Output Total 1800 ml 800 ml 900 ml Balance -1800 ml -800 ml -100 ml Exam Morbidly obese male in no acute distress. Patient has an open wound on the plantar medial aspect of the right hallux with necrosis of the center and hyperkeratosis surrounding the wound. There is small amount of bleeding present. Necrosis extends to the subcutaneous tissue along with tendon and joint capsule. There is small bowel are present. Second toe plantarly also looks dusky. Left foot third toe edema and discoloration noted as well. There is edema of bilateral heels and posterior heel area. Labs reviewed. Imaging reviewed. Results Result Diagram: 02/21/17 0808 02/21/17 0808 Results 24 hrs Laboratory Tests Test 02/20/17 11:29 02/20/17 17:53 02/20/17 21:19 02/21/17 02:19 Bedside Glucose 344 H 215 182 227 H Test 02/21/17 08:08 02/21/17 08:12 White Blood Count 13.3 H Red Blood Count 4.73 Hemoglobin 12.1 L Hematocrit 35.8 L Mean Corpuscular Volume 75.7 L Mean Corpuscular Hemoglobin 25.6 L Mean Corpuscular Hemoglobin Concent 33.8 Red Cell Distribution Width 13.0 Platelet Count 264 Mean Platelet Volume 10.2 Neutrophils % 84.4 H Lymphocytes % 7.6 L Monocytes % 6.6 Eosinophils % 0.1 Basophils % 0.2 Nucleated Red Blood Cells % 0.0 Neutrophils # 11.2 H Lymphocytes # 1.0 Monocytes # 0.9 Eosinophils # 0.0 Basophils # 0.0 Nucleated Red Blood Cells # 0.0 Sodium Level 137 Potassium Level 3.0 L Chloride Level 101 Carbon Dioxide Level 25 Anion Gap 14 Blood Urea Nitrogen 7 Creatinine 0.78 Glucose Level 212 # Calcium Level 8.0 L Magnesium Level 1.8 Triglycerides Level 62 Cholesterol Level 80 L LDL Cholesterol, Calculated 48 HDL Cholesterol 20 L Cholesterol/HDL Ratio 4.0 Bedside Glucose 229 H Medications Medications Current Medications Aspirin (Halfprin) 81 mg DAILY PO Last administered on 02/20/17 08:52; Admin Dose 81 MG; Start 02/20/17 at 09:00 Gabapentin (Neurontin) 600 mg BID PO Last administered on 02/20/17 21:27; Admin Dose 600 MG; Start 02/20/17 at 09:00 Insulin Glargine (Lantus) 20 unit BID@08,20 SC Last administered on 02/21/17 08:16; Admin Dose 20 UNIT; Start 02/20/17 at 08:30 Diagnostic Test (Pha) 1 ea 1 ea 02 XX ; Start 02/21/17 at 02:00 Sodium Chloride (NS) 1,000 ml @ 125 mls/hr Q8H IV Last administered on 08:18; Admin Dose 125 MLS/HR; Start 02/20/17 at 08:30 Ondansetron HCl (Zofran Inj) 4 mg Q6H PRN IV NAUSEA AND/OR VOMITING Last administered on 02/20/17 11:34; Admin Dose 4 MG; Start 02/20/17 at 08:30 Metoclopramide HCl (Reglan) 10 mg Q6H PRN IV NAUSEA AND/OR VOMITING Last administered on 02/20/17 15:56; Admin Dose 10 MG; Start 02/20/17 at 08:30 Acetaminophen (Tylenol Tab) 650 mg Q6H PRN PO PAIN LEVEL 1-3 OR FEVER; Start at 08:30 Acetaminophen/ Hydrocodone Bitart ([place] (5/325)) 1 tab Q6H PRN PO PAIN LEVEL 4 -6; Start 02/20/17 at 08:30 Acetaminophen/ Hydrocodone Bitart ([place] (5/325)) 2 tab Q6H PRN PO PAIN LEVEL 7 -10; Start 02/20/17 at 08:30 Morphine Sulfate (morphine) 2 mg Q4H PRN IV PAIN LEVEL 7-10; Start 02/20/17 at 08:30 Docusate Sodium (Colace) 100 mg Q12H PRN PO CONSTIPATION; Start 02/20/17 at 08: 30 Magnesium Hydroxide (Milk Of Mag) 30 ml DAILY PRN PO CONSTIPATION; Start at 08:30 Bisacodyl (Dulcolax Supp) [address] CONSTIPATION; Start 02/20/17 at 08 :30 Pantoprazole (Protonix Tab) 40 mg DAILY@06 PO Last administered on 02/21/17 05 :20; Admin Dose 40 MG; Start 02/21/17 at 06:00 Miscellaneous Information 1 ea NOTE XX ; Start 02/20/17 at 09:00 Glucose (Glutose) 15 gm Q15M PRN PO DECREASED GLUCOSE; Start 02/20/17 at 09:00 Glucose (Glutose) 22.5 gm Q15M PRN PO DECREASED GLUCOSE; Start 02/20/17 at 09: 00 Dextrose (D50w Syringe) 25 ml Q15M PRN IV DECREASED GLUCOSE; Start 02/20/17 at 09:00 Dextrose (D50w Syringe) 50 ml Q15M PRN IV DECREASED GLUCOSE; Start 02/20/17 at 09:00 Glucagon (Glucagen) 1 mg Q15M PRN IM DECREASED GLUCOSE; Start 02/20/17 at 09:00 Glucose (Glutose) 15 gm Q15M PRN BUCCAL DECREASED GLUCOSE; Start 02/20/17 at 09 :00 Enoxaparin Sodium 30 mg 30 mg BID SC Last administered on 02/20/17 21:24; Admin Dose 30 MG; Start 02/20/17 at 21:00 Levofloxacin/ Dextrose 150 ml @ 100 mls/hr Q24H IVPB Last administered on 02/21 04:00; Admin Dose 100 MLS/HR; Start 02/21/17 at 04:00 Vancomycin HCl/ Sodium Chloride (Vancocin/NS) 250 ml @ 83.333 mls/ hr Q12H IVPB Last administered on 02/20/17 23:59; Admin Dose 83.333 MLS/HR; Start at 22:00 Miscellaneous Information (*Rx Drug Level Order Reminder*) VANCOMYCIN TROUGH ON 02/07... ONCE ONCE XX ; Start 02/21/17 at 21:00; Stop 02/21/17 at 21:01 Metoclopramide HCl (Reglan) 10 mg Q6 IV Last administered on 02/21/17 05:20; Admin Dose 10 MG; Start 02/20/17 at 18:00 Miscellaneous Information (Pending Santyl Order For Wound Care) This patient trujillo... PRN PRN XX WOUND CARE; Start 02/21/17 at 01:00 BOOGIE GRIFFIN DPM Feb 21, 2017 10:35
[2017-02-21] MEDS ORDERED: POTASSIUM CHLORIDE (SR) 20 MEQ TAB PO STA (10:39)
--- NOTE | 2017-02-21 10:52 | PN ---
Date/Time of Note Date/Time of Note DATE: 02/21/17 TIME: 10:37 Assessment/Plan VTE Prophylaxis VTE Prophylaxis Intervention: LMWH Lines/Catheters IV C[facility]ter Type (from [facility] Urinary Cath still in place: No Assessment/Plan Assessment/Plan 47-year-old male: 1. Lower extremity cellulitis, acute on chronic, left lower extremity infection more acute than the right, but also likely with right big toe osteomyelitis. ESR and CRP elevated. Wound care ordered, wound cultures pending Continue IV antibiotics, IV fluids, Podiatry, infectious disease and vascular surgery to follow. Further recommendation per podiatry and infectious disease. 2. Sepsis likely secondary to cellulitis and diabetic wound with probable osteo Lactic acid better Continue IV fluids and current broad-spectrum antibiotics including vancomycin and Levaquin F/u ID recs 3. Diabetes mellitus, uncontrolled. A1c 12.2 Titrate insulin regimen including long-acting and mealtime insulin along with sliding scale insulin as needed Continue IV fluids. Diabetic education ordered. 4. Hyponatremia, likely hypovolemic and secondary to hyperglycemia, resolved Continue IVF, normal saline, blood sugar control. Renal function is stable 5. Nausea vomiting likely secondary to hypoglycemia, resolved with better control of blood sugar Continue Reglan scheduled and Zofran as needed. 6. Morbid obesity: Lifestyle modification 7. Bilateral lower extremity edema most likely consistent with lymphedema and poor venous return, also with ongoing infection, Treat underlying infection, Lasix as needed. 8. Hypokalemia: replete K and mag . Prophylaxis: Lovenox for DVT prophylaxis, Protonix for GI prophylaxis Disposition: On telemetry, follow up vascular and further podiatry consult recommendations, ID consult and PICC line placement by Thursday. Subjective 24 Hr Interval Summary Free Text/Dictation Patient stable hemodynamically Appreciate eval from Dr Knott and Dr Strauss, likely to need surgical amputation of right big toe at least and fondings c/w with osteo MRI and XR of feet pending Exam/Review of Systems Vital Signs Vitals Vital Signs Date Time Temp Pulse Resp B/P Pulse Ox O2 Delivery O2 Flow Rate FiO2 02/21/17 08:20 103 02/21/17 08:20 98.0 18 121/75 98 02/20/17 22:31 Nasal Cannula 02/20/17 18:00 2.0 02/20/17 01:38 28 Intake and Output 02/20/17 02/20/17 02/21/17 15:00 23:00 07:00 Intake Total 800 ml Output Total 1800 ml 800 ml 900 ml Balance -1800 ml -800 ml -100 ml Exam Constitutional: alert, obese, oriented, well developed Respiratory: clear to auscultation, normal air movement Cardiovascular: nl pulses, regular rate and rhythm Gastrointestinal: non-tender, soft Musculoskeletal: other (ischemia of some of the toes and also right toe wound with osteo on exam ) Neurological: STONE ROUGHER II-XII intact, lethargic, nl mental status, nl speech Results Result Diagram: 02/21/17 0808 02/21/17 0808 Results 24 hrs Laboratory Tests Test 02/20/17 11:29 02/20/17 17:53 02/20/17 21:19 02/21/17 02:19 Bedside Glucose 344 H 215 182 227 H Test 02/21/17 08:08 02/21/17 08:12 White Blood Count 13.3 H Red Blood Count 4.73 Hemoglobin 12.1 L Hematocrit 35.8 L Mean Corpuscular Volume 75.7 L Mean Corpuscular Hemoglobin 25.6 L Mean Corpuscular Hemoglobin Concent 33.8 Red Cell Distribution Width 13.0 Platelet Count 264 Mean Platelet Volume 10.2 Neutrophils % 84.4 H Lymphocytes % 7.6 L Monocytes % 6.6 Eosinophils % 0.1 Basophils % 0.2 Nucleated Red Blood Cells % 0.0 Neutrophils # 11.2 H Lymphocytes # 1.0 Monocytes # 0.9 Eosinophils # 0.0 Basophils # 0.0 Nucleated Red Blood Cells # 0.0 Sodium Level 137 Potassium Level 3.0 L Chloride Level 101 Carbon Dioxide Level 25 Anion Gap 14 Blood Urea Nitrogen 7 Creatinine 0.78 Glucose Level 212 # Calcium Level 8.0 L Magnesium Level 1.8 Triglycerides Level 62 Cholesterol Level 80 L LDL Cholesterol, Calculated 48 HDL Cholesterol 20 L Cholesterol/HDL Ratio 4.0 Bedside Glucose 229 H Medications Medications Current Medications Aspirin (Halfprin) 81 mg DAILY PO Last administered on 02/20/17 08:52; Admin Dose 81 MG; Start 02/20/17 at 09:00 Gabapentin (Neurontin) 600 mg BID PO Last administered on 02/20/17 21:27; Admin Dose 600 MG; Start 02/20/17 at 09:00 Insulin Glargine (Lantus) 20 unit BID@08,20 SC Last administered on 02/21/17 08:16; Admin Dose 20 UNIT; Start 02/20/17 at 08:30 Diagnostic Test (Pha) 1 ea 1 ea 02 XX ; Start 02/21/17 at 02:00 Sodium Chloride (NS) 1,000 ml @ 125 mls/hr Q8H IV Last administered on 08:18; Admin Dose 125 MLS/HR; Start 02/20/17 at 08:30 Ondansetron HCl (Zofran Inj) 4 mg Q6H PRN IV NAUSEA AND/OR VOMITING Last administered on 02/20/17 11:34; Admin Dose 4 MG; Start 02/20/17 at 08:30 Metoclopramide HCl (Reglan) 10 mg Q6H PRN IV NAUSEA AND/OR VOMITING Last administered on 02/20/17 15:56; Admin Dose 10 MG; Start 02/20/17 at 08:30 Acetaminophen (Tylenol Tab) 650 mg Q6H PRN PO PAIN LEVEL 1-3 OR FEVER; Start at 08:30 Acetaminophen/ Hydrocodone Bitart ([place] (5/325)) 1 tab Q6H PRN PO PAIN LEVEL 4 -6; Start 02/20/17 at 08:30 Acetaminophen/ Hydrocodone Bitart ([place] (5/325)) 2 tab Q6H PRN PO PAIN LEVEL 7 -10; Start 02/20/17 at 08:30 Morphine Sulfate (morphine) 2 mg Q4H PRN IV PAIN LEVEL 7-10; Start 02/20/17 at 08:30 Docusate Sodium (Colace) 100 mg Q12H PRN PO CONSTIPATION; Start 02/20/17 at 08: 30 Magnesium Hydroxide (Milk Of Mag) 30 ml DAILY PRN PO CONSTIPATION; Start at 08:30 Bisacodyl (Dulcolax Supp) 10 mg DAILY PRN SC CONSTIPATION; Start 02/20/17 at 08 :30 Pantoprazole (Protonix Tab) 40 mg DAILY@06 PO Last administered on 02/21/17 05 :20; Admin Dose 40 MG; Start 02/21/17 at 06:00 Miscellaneous Information 1 ea NOTE XX ; Start 02/20/17 at 09:00 Glucose (Glutose) 15 gm Q15M PRN PO DECREASED GLUCOSE; Start 02/20/17 at 09:00 Glucose (Glutose) 22.5 gm Q15M PRN PO DECREASED GLUCOSE; Start 02/20/17 at 09: 00 Dextrose (D50w Syringe) 25 ml Q15M PRN IV DECREASED GLUCOSE; Start 02/20/17 at 09:00 Dextrose (D50w Syringe) 50 ml Q15M PRN IV DECREASED GLUCOSE; Start 02/20/17 at 09:00 Glucagon (Glucagen) 1 mg Q15M PRN IM DECREASED GLUCOSE; Start 02/20/17 at 09:00 Glucose (Glutose) 15 gm Q15M PRN BUCCAL DECREASED GLUCOSE; Start 02/20/17 at 09 :00 Enoxaparin Sodium 30 mg 30 mg BID SC Last administered on 02/20/17 21:24; Admin Dose 30 MG; Start 02/20/17 at 21:00 Levofloxacin/ Dextrose 150 ml @ 100 mls/hr Q24H IVPB Last administered on 02/21 04:00; Admin Dose 100 MLS/HR; Start 02/21/17 at 04:00 Vancomycin HCl/ Sodium Chloride (Vancocin/NS) 250 ml @ 83.333 mls/ hr Q12H IVPB Last administered on 02/20/17 23:59; Admin Dose 83.333 MLS/HR; Start at 22:00 Miscellaneous Information (*Rx Drug Level Order Reminder*) VANCOMYCIN TROUGH ON 02/07... ONCE ONCE XX ; Start 02/21/17 at 21:00; Stop 02/21/17 at 21:01 Metoclopramide HCl (Reglan) 10 mg Q6 IV Last administered on 02/21/17 05:20; Admin Dose 10 MG; Start 02/20/17 at 18:00 Miscellaneous Information (Pending Santyl Order For Wound Care) This patient trujillo... PRN PRN XX WOUND CARE; Start 02/21/17 at 01:00 SALLY BOLANOS Feb 21, 2017 10:52
[2017-02-21] MEDS ORDERED: MAGNESIUM SULFATE 2 GM/50 ML 50 ML IVPB ONE (11:00)
[2017-02-21] MEDS: ASPIRIN (EC) 81 MG TAB PO SCH (11:18)
[2017-02-21] MEDS: GABAPENTIN 300 MG CAP PO SCH ×2 (11:18→22:15)
[2017-02-21] MEDS: ENOXAPARIN 30 MG/0.3 ML SYG SC SCH ×2 (11:20→22:17)
[2017-02-21] MEDS: ONDANSETRON 4 MG INJ IV PRN (12:30)
[2017-02-21] MEDS: VANCOMYCIN 1.5 GM in SOD CHLORIDE 0.9% 250 ML IVPB SCH (13:38)
--- NOTE | 2017-02-21 17:52 | RADRPT ---
PROCEDURE: MRI OF THE LEFT FOOT. CLINICAL INDICATION: Left forefoot infection. TECHNIQUE: Multiple MRI images of the left foot were obtained in multiple planes utilizing multipl e pulse sequences. Images were interpreted on the high-resolution PACS system. COMPARISON: None. FINDINGS: A surface marker is noted along the plantar aspect of the foot over the fourth/fifth metatarsophalan geal joints. 1st ray: There is no acute fracture or dislocation. There is partial thickness chondral loss with a small focus of high-grade chondral loss to bone within the first metatarsophalangeal joint with mil d osseous spurring. There is mild subchondral marrow edema within the first metatarsal head. The c ollateral ligaments are intact. There is no significant joint effusion. Alignment is maintained. T here is no evidence of osteomyelitis within the first digit. The first interphalangeal joint is intact. 2nd ray: There is no acute fracture or dislocation. There is no bone marrow edema or evidence of os teomyelitis. There is dorsal subluxation of the proximal phalanx relative to the metatarsal with deg eneration of the plantar plate. The collateral ligaments appear intact. There is suggestion of par tial thickness chondral loss at the metatarsophalangeal joint. No significant joint effusion is pre sent. 3rd ray through 5th ray: There is bone marrow edema with abnormal dark T1 signal within the third di stal phalanx with bony destructive changes and a small adjacent skin ulcer on axial images 04-06. T he bone marrow edema also extends into the third middle phalanx across the distal interphalangeal krysten int. No significant bony destructive changes are present within the middle phalanx. There is no acute fracture, bone marrow edema, or evidence of osteomyelitis within the fourth or fif th digits. There is also dorsal subluxation of the proximal phalanges relative to the metatarsals. The collater al ligaments are intact. No significant joint effusion is present. MIDFOOT: The tarsometatarsal joints are intact with mild chondral loss and osseous spurring. No sig nificant bone marrow edema is present. Other findings: There is edema within the subcutaneous soft tissues of the dorsal foot. There is no discrete Cummings's neuroma. No plantar fibroma is visualized. There is fatty atrophy of the muscles around the midfoot and forefoot. RPTAT: ZZ IMPRESSION: 1. Findings suggestive of osteomyelitis involving the third middle and distal phalanges with abnorm al marrow signal and bony destructive changes within the distal phalanx with an adjacent skin ulcer. 2. Hammertoe deformity of the second through fifth digits. 3. Osteoarthrosis of the first metatarsophalangeal joint with partial thickness chondral loss in pa rt to bone, osseous spurring, and marrow edema. 4. Diffuse edema throughout the subcutaneous soft tissues of the dorsal foot which may be from cell ulitis and/or nonspecific peripheral edema. .Beatriz Ann MD, MD Date Time Electronically viewed and signed by .Beatriz Ann MD, MD on 02/21/2017 17:52 .T/
--- NOTE | 2017-02-21 18:00 | RADRPT ---
PROCEDURE: MRI OF THE RIGHT FOOT. CLINICAL INDICATION: Forefoot infection TECHNIQUE: Multiple MRI images of the right foot were obtained in multiple planes utilizing multip le pulse sequences. Images were interpreted on the high-resolution PACS system. COMPARISON: None. FINDINGS: There is motion artifact limiting evaluation of the foot. 1st ray: There are bony destructive changes with bone marrow edema and abnormal dark T1 signal withi n the first distal phalanx. There is also bone marrow edema with abnormal dark T1 signal within the first proximal phalanx more prominent distally with bony destructive changes within the distal aspe ct at the first interphalangeal joint. There is irregularity of the skin along the medial plantar a spect of the first toe in keeping with a skin ulcer with soft tissue edema. There is no drainable a bscess. A small to moderate amount of joint fluid is present at the first interphalangeal joint. There are no bony destructive changes within the first metatarsophalangeal joint. There is slight h allux valgus deformity of the first metatarsophalangeal joint with partial thickness chondral loss a nd osseous spurring. The collateral ligaments appear intact. 2nd ray: There is no acute fracture, bone marrow edema, or evidence of osteomyelitis within the seco nd digit. There is dorsal subluxation of the second proximal phalanx relative to the metatarsal wit h mild degeneration of the plantar plate. The chondral surfaces appear intact. The collateral liga ments are intact. There is no significant joint effusion. 3rd ray through 5th ray: There is no acute fracture, bone marrow edema, or evidence of osteomyelitis within the third through fifth digits. There is also dorsal subluxation of the proximal phalanges relative to the metatarsals. The collateral ligaments otherwise appear intact at the metatarsophala ngeal joints. There is no significant joint effusion. MIDFOOT: The tarsometatarsal joints are intact with mild chondral loss. The Lisfranc's ligament is intact. Other findings: There is no discrete Cummings's neuroma. No plantar fibroma is visualized. There is diffuse edema within the subcutaneous soft tissues of the dorsal foot. There is also fatty atrophy of the muscles throughout the midfoot and forefoot. There is trace fluid surrounding the f lexor hallucis longus tendon at the level of the first metatarsal. RPTAT: ZZ IMPRESSION: 1. Osteomyelitis of the first toe - distal phalanx and proximal phalanx across the interphalangeal joint with bony destructive changes and an adjacent skin ulcer. No discrete drainable abscess. 2. Hammertoe deformity of the lesser metatarsophalangeal joints. 3. Diffuse edema within the subcutaneous soft tissues of the dorsal foot which may be from cellulit is or nonspecific peripheral edema. .Beatriz Ann MD, MD Date Time Electronically viewed and signed by .Beatriz Ann MD, on 02/21/2017 17:59 .T/
--- NOTE | 2017-02-21 20:14 | RADRPT ---
PROCEDURE: CT scan of the abdomen, pelvis, and lower extremities with contrast. CT angiogram of th e abdomen, pelvis, and lower extremities. CLINICAL INDICATION: Abdominal and pelvic pain. Bilateral lower extremity pain. Bilateral foot ul cers. Diabetic neuropathy. TECHNIQUE: CT scan of the abdomen, pelvis, and lower extremities with contrast was performed with helical axial sections. The patient was scanned during intravenous administration of 120 ml of Omni paque-350. 2-D coronal reformatted images were obtained from the axial source images. In addition, 3-D post processing was performed. Total exam DLP is 2214.36 mGy-cm. CTDIvol is 119.65 mGy. One or more of the following dose reduction techniques were used: Automated exposure control, adjustment of the mA and/or kV according to patient size, use of iterative reconstruction technique. COMPARISON: None available FINDINGS: CT abdomen: Mild atelectasis is present at the right lung base posteriorly. There is a small right pleural effu gianna. The left lung base is normal and there is no left pleural effusion. The liver is normal in s ize and attenuation. There is no focal hepatic lesion. The gallbladder and bile ducts are normal. The spleen is normal in size. There is no focal splenic lesion. The pancreas is normal with no mass or evidence of pancreatitis. Both adrenals are normal with no enlargement or mass. Both kidneys demonstrate normal contrast enhancement. There is no renal mass or hydronephrosis. There is no retroperitoneal lymphadenopathy or mass. The bowel and mesentery are normal. There is no free fluid or free gas. CT pelvis: There is no pelvic lymphadenopathy or mass. The bladder and distal ureters are normal. The periappendiceal region is unremarkable with no evidence of appendicitis. The bowel and mesentery are normal. There is no free fluid or free gas. There are degenerative changes of the hips and knees. CT angiogram: The distal thoracic aorta is normal with no aneurysm or dissection. The abdominal aorta is normal with no aneurysm or dissection. The celiac axis, superior mesenteric artery, and inferior mesenteric artery are all well seen and ap pear normal with no stenosis or occlusion. The renal arteries are normal with no stenosis or occlusion. The common iliac arteries, internal iliac arteries, and external iliac arteries are normal. The com mon femoral arteries are normal. The superficial femoral arteries are normal and patent bilaterally. The popliteal arteries are normal and patent bilaterally. The calf arteries are widely patent bilaterally. Multiple dilated superficial veins are present nishant aterally in the calves and thighs consistent with varices. IMPRESSION: 1. Mild atelectasis at the right lung base posteriorly and small right pleural effusion. 2. Degenerative changes of the hips and knees. 3. Normal CT angiogram of the abdomen and lower extremities with no significant stenosis or occlusi on. 4. Dilated superficial veins bilaterally in the lower extremities consistent with varices. RPTAT: QQ .Chan Hill MD, MD Date Time Electronically viewed and signed by .Chan Hill MD, MD on 02/21/2017 20:13 .R/
--- NOTE | 2017-02-21 20:16 | RADRPT ---
PROCEDURE: XR Left Foot. CLINICAL INDICATION: Left foot pain. Infection. TECHNIQUE: Three views. Frontal, lateral, and oblique. COMPARISON: None. FINDINGS: There is no fracture or dislocation. There is diffuse soft tissue swelling. There are degenerative changes of the midfoot. The articular surfaces are otherwise intact. There is no lytic or blastic lesion. There is no radiopaque foreign body. IMPRESSION: 1. Diffuse soft tissue swelling. 2. Degenerative changes of the midfoot. 3. No lytic lesion. RPTAT: QQ .Chan Hill MD, MD Date Time Electronically viewed and signed by .Chan Hill MD, MD on 02/21/2017 20:16 .R/
--- NOTE | 2017-02-21 20:17 | RADRPT ---
PROCEDURE: XR Right Ankle. CLINICAL INDICATION: Right ankle pain. TECHNIQUE: 2 views. Frontal and lateral. COMPARISON: None. FINDINGS: There is no fracture or dislocation. There is diffuse soft tissue swelling. There are degenerative changes of the midfoot with osteophytes noted. There is a plantar calcaneal spur. There is pes planus. There is no lytic or blastic lesion. There is no radiopaque foreign body. IMPRESSION: 1. Diffuse soft tissue swelling. 2. Degenerative change. 3. Pes planus. 4. Otherwise normal images of the right ankle. RPTAT: QQ .Chan Hill MD, MD Date Time Electronically viewed and signed by .Chan Hill MD, on 02/21/2017 20:17 .R/
[2017-02-22] VITALS (13 sets, daily range): BP systolic 107–162; BP diastolic 60–95; PULSE 88–134; RESP 18–20
[2017-02-22] MEDS: METOCLOPRAMIDE 10 MG INJ IV SCH ×3 (00:05→11:53)
[2017-02-22] MEDS: SOD CHLORIDE 0.9% 1,000 ML IV SCH ×3 (00:30→13:56)
[2017-02-22] MEDS: ACCU-CHEK XX SCH (00:52)
[2017-02-22] MEDS ORDERED: VANCOMYCIN 1.5 GM in SOD CHLORIDE 0.9% 250 ML IVPB SCH (01:00)
[2017-02-22] MEDS: PANTOPRAZOLE (EC) 40 MG TAB PO SCH (05:04)
[2017-02-22] MEDS: LEVOFLOXACIN 750MG/D5W (PMX) 150 ML IVPB SCH (05:05)
[2017-02-22] MEDS: INSULIN ASPART [NOVOLOG] 3 ML PEN SC SCH ×7 (07:50→20:57)
[2017-02-22] MEDS: INSULIN GLARGINE [LANtus] 3 ML PEN SC SCH (07:52)
[2017-02-22] MEDS: ASPIRIN (EC) 81 MG TAB PO SCH (08:11)
[2017-02-22] MEDS: GABAPENTIN 300 MG CAP PO SCH ×2 (08:11→20:55)
[2017-02-22] MEDS: ENOXAPARIN 30 MG/0.3 ML SYG SC SCH ×2 (08:16→20:56)
[2017-02-22 08:17] LABS: ADD SCAN DIFF NO
[2017-02-22 08:39] LABS: BASOPHILS % 0.2 % (0.0-2.0); EOSINOPHILS % 0.2 % (0.0-7.0); HEMOGLOBIN 12.1 g/dl (14.0-18.0); LYMPHOCYTES # 1.1 10^3/ul (0.8-2.9); LYMPHOCYTES % 8.5 % (15.0-51.0); MEAN CORPUSCULAR HEMOGLOBIN 25.6 pg (29.0-33.0); MEAN CORPUSCULAR HGB CONC 33.6 g/dl (32.0-37.0); MEAN CORPUSCULAR VOLUME 76.1 fl (82.0-101.0); MEAN PLATELET VOLUME 10.8 fl (7.4-10.4); MONOCYTE # 0.9 10^3/ul (0.3-0.9); MONOCYTES % 6.7 % (0.0-11.0); NEUTROPHIL # 10.5 10^3/ul (1.6-7.5); NEUTROPHILS % 82.8 % (39.0-77.0); PLATELET COUNT 286 10^3/UL (140-415); RED BLOOD COUNT 4.73 10^6/ul (4.70-6.10); RED CELL DISTRIBUTION WIDTH 13.1 % (11.5-14.5); WHITE BLOOD COUNT 12.7 10^3/ul (4.8-10.8)
[2017-02-22 08:43] LABS: INR 1.05; PROTIME 13.7 Sec (12.2-14.2); PT RATIO 1.1
[2017-02-22 08:44] LABS: PARTIAL THROMBOPLASTIN TIME 37.2 Sec (25.0-35.0)
[2017-02-22 08:51] LABS: MAGNESIUM 1.9 mg/dl (1.7-2.5); PHOSPHORUS 2.4 mg/dl (2.5-4.9)
[2017-02-22] MEDS ORDERED: VANCOMYCIN 1.75 GM in NS 500 ML IVPB SCH (09:00)
[2017-02-22 09:01] LABS: CALCIUM 8.3 mg/dl (8.4-10.2); CREATININE 0.73 mg/dl (0.61-1.24); POTASSIUM 3.2 mmol/L (3.5-5.1)
[2017-02-22] MEDS ORDERED: POTASSIUM CHLORIDE (SR) 20 MEQ TAB PO STA (12:06)
[2017-02-22] MEDS ORDERED: MAGNESIUM SULFATE 1 GM/D5W 100 ML IVPB ONE (13:00)
--- NOTE | 2017-02-22 13:25 | PN ---
Date/Time of Note Date/Time of Note DATE: 02/22/17 TIME: 13:11 Assessment/Plan VTE Prophylaxis VTE Prophylaxis Intervention: LMWH Lines/Catheters IV [facility]ter [facility]from [facility] Urinary Cath still in place: No Assessment/Plan Assessment/Plan 47-year-old male: 1. Lower extremity cellulitis, acute on chronic, left lower extremity infection more acute than the right, but also likely with right big toe osteomyelitis. ESR and CRP elevated. Wound care ordered, wound cultures coming back polymicrobial, ID consult pending Continue IV antibiotics, IV fluids, Podiatry, infectious disease and vascular surgery to follow. Further recommendation per podiatry and infectious disease. 2. Sepsis likely secondary to cellulitis and diabetic wound with probable osteo Lactic acid better and patient better clinically Continue IV fluids and current broad-spectrum antibiotics including vancomycin and Levaquin F/u ID recs 3. Diabetes mellitus, uncontrolled. A1c 12.2 Titrate insulin regimen including long-acting and mealtime insulin along with sliding scale insulin as needed. BG much better controlled Tolerating po so will decrease IVF Continue IV fluids. Diabetic education ordered. 4. Hyponatremia, likely hypovolemic and secondary to hyperglycemia, resolved Continue IVF at lower rate, blood sugar control. Renal function is stable 5. Nausea vomiting likely secondary to hypoglycemia, resolved with better control of blood sugar. d/c reglan Continue Reglan scheduled and Zofran as needed. 6. Morbid obesity: Lifestyle modification 7. Bilateral lower extremity edema most likely consistent with lymphedema and poor venous return, also with ongoing infection, Treat underlying infection, Lasix as needed. 8. Hypokalemia: replete K and mag . Prophylaxis: Lovenox for DVT prophylaxis, Protonix for GI prophylaxis Disposition: On telemetry, follow up vascular and further podiatry consult recommendations, ID consult and PICC line placement by Thursday. Subjective 24 Hr Interval Summary Free Text/Dictation Patient doing better today, afebrile More stable today, episode of ST to 140's x1 today CTA chest negative on admission and CT LE with run off negative for major occlusion Appreciate Vascular surgery and Podiatry eval and recs Exam/Review of Systems Vital Signs Vitals Vital Signs Date Time Temp Pulse Resp B/P Pulse Ox O2 Delivery O2 Flow Rate FiO2 02/22/17 12:22 92 02/22/17 11:44 98.0 18 126/67 94 02/20/17 22:31 Nasal Cannula 02/20/17 18:00 2.0 02/20/17 01:38 28 Intake and Output 02/21/17 02/21/17 02/22/17 15:00 23:00 07:00 Intake Total 50 ml 1200 ml 550 ml Output Total 1400 ml Balance 50 ml -200 ml 550 ml Exam Constitutional: alert, obese, oriented, well developed Respiratory: clear to auscultation, normal air movement Cardiovascular: nl pulses, regular rate and rhythm Gastrointestinal: non-tender, soft Musculoskeletal: swelling (b/l LE ) Extremities: normal pulses Neurological: [employer] II-XII intact, nl mental status, nl speech, nl strength Results Result Diagram: 02/22/1770602/22/17706 Results 24 hrs Laboratory Tests Test 02/21/17 18:15 02/21/17 21:31 02/22/17 00:49 02/22/17 07:07 Bedside Glucose 144 91 Vancomycin Level Trough 8.7 L White Blood Count 12.7 H Red Blood Count 4.73 Hemoglobin 12.1 L Hematocrit 36.0 L Mean Corpuscular Volume 76.1 L Mean Corpuscular Hemoglobin 25.6 L Mean Corpuscular Hemoglobin Concent 33.6 Red Cell Distribution Width 13.1 Platelet Count 286 Mean Platelet Volume 10.8 H Neutrophils % 82.8 H Lymphocytes % 8.5 L Monocytes % 6.7 Eosinophils % 0.2 Basophils % 0.2 Nucleated Red Blood Cells % 0.0 Neutrophils # 10.5 H Lymphocytes # 1.1 Monocytes # 0.9 Eosinophils # 0.0 Basophils # 0.0 Nucleated Red Blood Cells # 0.0 Prothrombin Time 13.7 Prothrombin Time Ratio 1.1 INR International Normalized Ratio 1.05 Activated Partial Thromboplast Time 37.2 H Sodium Level 140 Potassium Level 3.2 L Chloride Level 97 Carbon Dioxide Level 30 Anion Gap 16 Blood Urea Nitrogen 6 L Creatinine 0.73 Glucose Level 123 # Calcium Level 8.3 L Phosphorus Level 2.4 L Magnesium Level 1.9 Test 02/22/17 07:50 02/22/17 11:52 Bedside Glucose 128 98 Medications Medications Current Medications Aspirin (Halfprin) 81 mg DAILY PO Last administered on 02/22/17t 08:11; Admin Dose 81 MG; Start 02/20/17 at 09:00 Gabapentin (Neurontin) 600 mg BID PO Last administered on 02/22/17 08:11; Admin Dose 600 MG; Start 02/20/17 at 09:00 Insulin Glargine (Lantus) 20 unit BID@08,20 SC Last administered on 02/22/17 07:52; Admin Dose 20 UNIT; Start 02/20/17 at 08:30 Diagnostic Test (Pha) 1 ea 1 ea 02 XX ; Start 02/21/17 at 02:00 Sodium Chloride (NS) 1,000 ml @ 125 mls/hr Q8H IV Last administered on 00:30; Admin Dose 125 MLS/HR; Start 02/20/17 at 08:30 Ondansetron HCl (Zofran Inj) 4 mg Q6H PRN IV NAUSEA AND/OR VOMITING Last administered on 02/21/17 12:30; Admin Dose 4 MG; Start 02/20/17 at 08:30 Metoclopramide HCl (Reglan) 10 mg Q6H PRN IV NAUSEA AND/OR VOMITING Last administered on 02/20/17 15:56; Admin Dose 10 MG; Start 02/20/17 at 08:30 Acetaminophen (Tylenol Tab) 650 mg Q6H PRN PO PAIN LEVEL 1-3 OR FEVER; Start at 08:30 Acetaminophen/ Hydrocodone Bitart ([place] (5/325)) 1 tab Q6H PRN PO PAIN LEVEL 4 -6; Start 02/20/17 at 08:30 Acetaminophen/ Hydrocodone Bitart ([place] (5/325)) 2 tab Q6H PRN PO PAIN LEVEL 7 -10; Start 02/20/17 at 08:30 Morphine Sulfate (morphine) 2 mg Q4H PRN IV PAIN LEVEL 7-10; Start 02/20/17 at 08:30 Docusate Sodium (Colace) 100 mg Q12H PRN PO CONSTIPATION; Start 02/20/17 at 08: 30 Magnesium Hydroxide (Milk Of Mag) 30 ml DAILY PRN PO CONSTIPATION; Start at 08:30 Bisacodyl (Dulcolax Supp) 10 mg DAILY PRN NE CONSTIPATION; Start 02/20/17 at 08 :30 Pantoprazole (Protonix Tab) 40 mg DAILY@06 PO Last administered on 02/22/17 05 :04; Admin Dose 40 MG; Start 02/21/17 at 06:00 Miscellaneous Information 1 ea NOTE XX ; Start 02/20/17 at 09:00 Glucose (Glutose) 15 gm Q15M PRN PO DECREASED GLUCOSE; Start 02/20/17 at 09:00 Glucose (Glutose) 22.5 gm Q15M PRN PO DECREASED GLUCOSE; Start 02/20/17 at 09: 00 Dextrose (D50w Syringe) 25 ml Q15M PRN IV DECREASED GLUCOSE; Start 02/20/17 at 09:00 Dextrose (D50w Syringe) 50 ml Q15M PRN IV DECREASED GLUCOSE; Start 02/20/17 at 09:00 Glucagon (Glucagen) 1 mg Q15M PRN IM DECREASED GLUCOSE; Start 02/20/17 at 09:00 Glucose (Glutose) 15 gm Q15M PRN BUCCAL DECREASED GLUCOSE; Start 02/20/17 at 09 :00 Enoxaparin Sodium 30 mg 30 mg BID SC Last administered on 02/22/17 08:16; Admin Dose 30 MG; Start 02/20/17 at 21:00 Levofloxacin/ Dextrose (Levaquin 750 Mg/ D5W 150 ml (Pmx)) 150 ml @ 100 mls/hr Q24H IVPB Last administered on 02/22/17 05:05; Admin Dose 100 MLS/HR; Start at 04:00 Metoclopramide HCl (Reglan) 10 mg Q6 IV Last administered on 02/22/17 11:53; Admin Dose 10 MG; Start 02/20/17 at 18:00 Miscellaneous Information This patient trujillo... PRN PRN XX WOUND CARE; Start 02/21 at 01:00 Vancomycin HCl/ Sodium Chloride (Vancocin/NS) 250 ml @ 83.333 mls/ hr Q8H IVPB ; Start 02/22/17 at 17:00 Miscellaneous Information VANCOMYCIN TROUGH AT 1600 ONCE ONCE XX ; Start 02/23/17 at 16:00; Stop 02/23/17 at 16:01 Magnesium Sulfate/ Dextrose (Magnesium Sulfate 1 Gm/D5W) 100 ml @ 100 mls/hr ONCE ONCE IVPB ; Start 02/22/17 at 13:00; Stop 02/22/17 at 13:59 Procedures Procedures PROCEDURE: CT scan of the abdomen, pelvis, and lower extremities with contrast. CT angiogram of the abdomen, pelvis, and lower extremities. CLINICAL INDICATION: Abdominal and pelvic pain. Bilateral lower extremity pain. Bilateral foot ulcers. Diabetic neuropathy. TECHNIQUE: CT scan of the abdomen, pelvis, and lower extremities with contrast was performed with helical axial sections. The patient was scanned during intravenous administration of 120 ml of Omnipaque-350. 2-D coronal reformatted images were obtained from the axial source images. In addition, 3- D post processing was performed. Total exam DLP is 2214.36 mGy-cm. CTDIvol is 119.65 mGy. One or more of the following dose reduction techniques were used: Automated exposure control, adjustment of the mA and/or kV according to patient size, use of iterative reconstruction technique. COMPARISON: None available FINDINGS: CT abdomen: Mild atelectasis is present at the right lung base posteriorly. There is a small right pleural effusion. The left lung base is normal and there is no left pleural effusion. The liver is normal in size and attenuation. There is no focal hepatic lesion. The gallbladder and bile ducts are normal. The spleen is normal in size. There is no focal splenic lesion. The pancreas is normal with no mass or evidence of pancreatitis. Both adrenals are normal with no enlargement or mass. Both kidneys demonstrate normal contrast enhancement. There is no renal mass or hydronephrosis. There is no retroperitoneal lymphadenopathy or mass. The bowel and mesentery are normal. There is no free fluid or free gas. CT pelvis: There is no pelvic lymphadenopathy or mass. The bladder and distal ureters are normal. The periappendiceal region is unremarkable with no evidence of appendicitis. The bowel and mesentery are normal. There is no free fluid or free gas. There are degenerative changes of the hips and knees. CT angiogram: The distal thoracic aorta is normal with no aneurysm or dissection. The abdominal aorta is normal with no aneurysm or dissection. The celiac axis, superior mesenteric artery, and inferior mesenteric artery are all well seen and appear normal with no stenosis or occlusion. The renal arteries are normal with no stenosis or occlusion. The common iliac arteries, internal iliac arteries, and external iliac arteries are normal. The common femoral arteries are normal. The superficial femoral arteries are normal and patent bilaterally. The popliteal arteries are normal and patent bilaterally. The calf arteries are widely patent bilaterally. Multiple dilated superficial veins are present bilaterally in the calves and thighs consistent with varices. IMPRESSION: 1. Mild atelectasis at the right lung base posteriorly and small right pleural effusion. 2. Degenerative changes of the hips and knees. 3. Normal CT angiogram of the abdomen and lower extremities with no significant stenosis or occlusion. 4. Dilated superficial veins bilaterally in the lower extremities consistent with varices. SALLY BOLANOS Feb 22, 2017 13:21
[2017-02-22] MEDS: VANCOMYCIN 1.25 GM in SOD CHLORIDE 0.9% 250 ML IVPB SCH (17:47)
[2017-02-23] VITALS (11 sets, daily range): BP systolic 114–158; BP diastolic 64–84; PULSE 80–92; RESP 18–19
[2017-02-23] MEDS: INSULIN GLARGINE [LANtus] 3 ML PEN SC SCH ×3 (00:21→20:49)
[2017-02-23] MEDS: VANCOMYCIN 1.25 GM in SOD CHLORIDE 0.9% 250 ML IVPB SCH ×2 (00:25→08:01)
[2017-02-23] MEDS: ACCU-CHEK XX SCH (00:25)
[2017-02-23] MEDS: PANTOPRAZOLE (EC) 40 MG TAB PO SCH (06:21)
[2017-02-23] MEDS: LEVOFLOXACIN 750MG/D5W (PMX) 150 ML IVPB SCH (06:22)
[2017-02-23] MEDS: SOD CHLORIDE 0.9% 1,000 ML IV SCH (06:25)
[2017-02-23 07:36] LABS: ADD SCAN DIFF NO
[2017-02-23 07:40] LABS: BASOPHILS % 0.3 % (0.0-2.0); EOSINOPHILS # 0.1 10^3/ul (0.0-0.5); HEMATOCRIT 36.2 % (42.0-52.0); HEMOGLOBIN 12.5 g/dl (14.0-18.0); LYMPHOCYTES % 10.1 % (15.0-51.0); MEAN CORPUSCULAR HEMOGLOBIN 26.2 pg (29.0-33.0); MEAN CORPUSCULAR HGB CONC 34.5 g/dl (32.0-37.0); MEAN CORPUSCULAR VOLUME 75.9 fl (82.0-101.0); MEAN PLATELET VOLUME 10.9 fl (7.4-10.4); MONOCYTE # 0.7 10^3/ul (0.3-0.9); MONOCYTES % 7.6 % (0.0-11.0); NEUTROPHIL # 7.7 10^3/ul (1.6-7.5); NEUTROPHILS % 79.3 % (39.0-77.0); PLATELET COUNT 322 10^3/UL (140-415); RED BLOOD COUNT 4.77 10^6/ul (4.70-6.10); RED CELL DISTRIBUTION WIDTH 12.9 % (11.5-14.5); WHITE BLOOD COUNT 9.7 10^3/ul (4.8-10.8)
[2017-02-23 07:55] LABS: CREATININE 0.75 mg/dl (0.61-1.24)
[2017-02-23] MEDS: INSULIN ASPART [NOVOLOG] 3 ML PEN SC SCH ×7 (07:58→20:44)
[2017-02-23] MEDS: GABAPENTIN 300 MG CAP PO SCH ×2 (08:00→20:43)
[2017-02-23] MEDS: ENOXAPARIN 30 MG/0.3 ML SYG SC SCH ×2 (08:00→20:48)
[2017-02-23] MEDS: ASPIRIN (EC) 81 MG TAB PO SCH (08:01)
[2017-02-23 08:10] LABS: MAGNESIUM 1.8 mg/dl (1.7-2.5); PHOSPHORUS 2.8 mg/dl (2.5-4.9)
[2017-02-23] MEDS ORDERED: POTASSIUM CHLORIDE (SR) 20 MEQ TAB PO STA (09:43)
[2017-02-23] MEDS ORDERED: MAGNESIUM SULFATE 2 GM/50 ML 50 ML IVPB ONE (10:00)
[2017-02-23] MEDS ORDERED: LIDOCAINE 1% (MPF) 5 ML VIAL SC ONE (10:00)
--- NOTE | 2017-02-23 10:05 | PN ---
Date/Time of Note Date/Time of Note DATE: 02/23/17 TIME: 09:47 Assessment/Plan VTE Prophylaxis VTE Prophylaxis Intervention: LMWH Lines/Catheters IV [facility]ter Type (from [facility]): Peripheral IV Urinary Cath still in place: No Assessment/Plan Assessment/Plan 47-year-old male: 1. Lower extremity cellulitis, acute on chronic, left lower extremity infection more acute than the right, but also likely with right big toe osteomyelitis. ESR and CRP elevated. MRI actually confirmed osteomyelitis of toes on both feet. Wound care ordered, wound cultures coming back polymicrobial, ID consult pending Continue Vanco and Levaquin for now Podiatry, infectious disease and vascular surgery to follow. PICC line placement today Further recommendation per podiatry and infectious disease. 2. Sepsis likely secondary to cellulitis and diabetic wound with probable osteo Lactic acid better and patient better clinically D/c IV fluids and continue vancomycin and Levaquin F/u ID recs 3. Diabetes mellitus, uncontrolled. A1c 12.2. BG now well controlled. ADA diet Continue current insulin regimen. Tolerating po, d/c IVF Diabetic education ordered. 4. Hyponatremia, likely hypovolemic and secondary to hyperglycemia, resolved Renal function is stable 5. Nausea vomiting likely secondary to hypoglycemia, resolved with better control of blood sugar. d/c reglan and d/c IVF Continue Zofran as needed. 6. Morbid obesity: Lifestyle modification 7. Bilateral lower extremity edema most likely consistent with lymphedema and poor venous return, also with ongoing infection, Treat underlying infection, Lasix as needed. 8. Hypokalemia: replete K and mag 9. Sinus tachycardia: Resolved as of this morning, CT angiogram of the chest negative for PE, EKG just showing sinus tachycardia yesterday no acute changes. 2D echocardiogram will be ordered mostly as part of preop workup as patient likely to need amputation of some of his toes. Prophylaxis: Lovenox for DVT prophylaxis, Protonix for GI prophylaxis Disposition: 2D echo, follow up vascular and further podiatry consult recommendations, ID consult and PICC line placement today. Subjective 24 Hr Interval Summary Free Text/Dictation Patient doing well this morning, vital signs much more stable, tolerating p.o. well, blood sugars controlled. Discussed with Dr. Strauss from vascular he will review the CT lower extremity with runoff and advice patient subsequently from the vascular standpoint. Dr. Knott from podiatry also following the patient may need debridement and/or amputation of some of the toes as osteomyelitis confirmed on MRI bilateral feet. Exam/Review of Systems Vital Signs Vitals Vital Signs Date Time Temp Pulse Resp B/P Pulse Ox O2 Delivery O2 Flow Rate FiO2 02/23/17 08:11 97.5 93 19 135/70 94 02/20/17 22:31 Nasal Cannula 02/20/17 18:00 2.0 02/20/17 01:38 28 Intake and Output 02/22/17 02/22/17 02/23/17 15:00 23:00 07:00 Intake Total 500 ml 650 ml 1750 ml Balance 500 ml 650 ml 1750 ml Exam Constitutional: alert, obese, oriented, well developed Respiratory: clear to auscultation, normal air movement Cardiovascular: nl pulses, regular rate and rhythm Gastrointestinal: non-tender, soft Musculoskeletal: swelling (bilateral LE ) Extremities: edema (erythema, edema bilateral LE with wounds Right 1st toe ), normal pulses Neurological: ACOUSTICAL ENGINEER II-XII intact, nl mental status, nl speech, nl strength Results Result Diagram: 02/23/17 0611 02/23/17 0612 Results 24 hrs Laboratory Tests Test 02/22/17 11:52 02/22/17 17:06 02/22/17 20:18 02/22/17 21:01 Bedside Glucose 98 83 59 L 91 Test 02/23/17 00:15 02/23/17 06:11 02/23/17 06:12 02/23/17 07:52 Bedside Glucose 106 87 White Blood Count 9.7 # Red Blood Count 4.77 Hemoglobin 12.5 L Hematocrit 36.2 L Mean Corpuscular Volume 75.9 L Mean Corpuscular Hemoglobin 26.2 L Mean Corpuscular Hemoglobin Concent 34.5 Red Cell Distribution Width 12.9 Platelet Count 322 Mean Platelet Volume 10.9 H Neutrophils % 79.3 H Lymphocytes % 10.1 L Monocytes % 7.6 Eosinophils % 1.0 Basophils % 0.3 Nucleated Red Blood Cells % 0.0 Neutrophils # 7.7 H Lymphocytes # 1.0 Monocytes # 0.7 Eosinophils # 0.1 Basophils # 0.0 Nucleated Red Blood Cells # 0.0 Sodium Level 140 Potassium Level 3.0 L Chloride Level 99 Carbon Dioxide Level 30 Anion Gap 14 Blood Urea Nitrogen 7 Creatinine 0.75 Glucose Level 102 Calcium Level 8.0 L Phosphorus Level 2.8 Magnesium Level 1.8 Medications Medications Current Medications Aspirin (Halfprin) 81 mg DAILY PO Last administered on 02/23/17 08:01; Admin Dose 81 MG; Start 02/20/17 at 09:00 Gabapentin (Neurontin) 600 mg BID PO Last administered on 02/23/17 08:00; Admin Dose 600 MG; Start 02/20/17 at 09:00 Insulin Glargine (Lantus) 20 unit BID@08,20 SC Last administered on 02/23/17 07:57; Admin Dose 20 UNIT; Start 02/20/17 at 08:30 Diagnostic Test (Pha) 1 ea 1 ea 02 XX ; Start 02/21/17 at 02:00 Sodium Chloride (NS) 1,000 ml @ 75 mls/hr [id number] IV Last administered on 02/23 06:25; Admin Dose 75 MLS/HR; Start 02/20/17 at 08:30 Ondansetron HCl (Zofran Inj) 4 mg Q6H PRN IV NAUSEA AND/OR VOMITING Last administered on 02/21/17 12:30; Admin Dose 4 MG; Start 02/20/17 at 08:30 Metoclopramide HCl (Reglan) 10 mg Q6H PRN IV NAUSEA AND/OR VOMITING Last administered on 02/20/17 15:56; Admin Dose 10 MG; Start 02/20/17 at 08:30 Acetaminophen (Tylenol Tab) 650 mg Q6H PRN PO PAIN LEVEL 1-3 OR FEVER; Start at 08:30 Acetaminophen/ Hydrocodone Bitart ([place] (5/325)) 1 tab Q6H PRN PO PAIN LEVEL 4 -6; Start 02/20/17 at 08:30 Acetaminophen/ Hydrocodone Bitart ([place] (5/325)) 2 tab Q6H PRN PO PAIN LEVEL 7 -10; Start 02/20/17 at 08:30 Morphine Sulfate (morphine) 2 mg Q4H PRN IV PAIN LEVEL 7-10; Start 02/20/17 at 08:30 Docusate Sodium (Colace) 100 mg Q12H PRN PO CONSTIPATION; Start 02/20/17 at 08: 30 Magnesium Hydroxide (Milk Of Mag) 30 ml DAILY PRN PO CONSTIPATION; Start at 08:30 Bisacodyl (Dulcolax Supp) 10 mg DAILY PRN [place] CONSTIPATION; Start 02/20/17 at 08 :30 Pantoprazole (Protonix Tab) 40 mg DAILY@06 PO Last administered on 02/23/17 06 :21; Admin Dose 40 MG; Start 02/21/17 at 06:00 Miscellaneous Information 1 ea NOTE XX ; Start 02/20/17 at 09:00 Glucose (Glutose) 15 gm Q15M PRN PO DECREASED GLUCOSE; Start 02/20/17 at 09:00 Glucose (Glutose) 22.5 gm Q15M PRN PO DECREASED GLUCOSE; Start 02/20/17 at 09: 00 Dextrose (D50w Syringe) 25 ml Q15M PRN IV DECREASED GLUCOSE; Start 02/20/17 at 09:00 Dextrose (D50w Syringe) 50 ml Q15M PRN IV DECREASED GLUCOSE; Start 02/20/17 at 09:00 Glucagon (Glucagen) 1 mg Q15M PRN IM DECREASED GLUCOSE; Start 02/20/17 at 09:00 Glucose (Glutose) 15 gm Q15M PRN BUCCAL DECREASED GLUCOSE; Start 02/20/17 at 09 :00 Enoxaparin Sodium 30 mg 30 mg BID SC Last administered on 02/23/17 08:00; Admin Dose 30 MG; Start 02/20/17 at 21:00 Levofloxacin/ Dextrose (Levaquin 750 Mg/ D5W 150 ml (Pmx)) 150 ml @ 100 mls/hr Q24H IVPB Last administered on 02/23/17 06:22; Admin Dose 100 MLS/HR; Start at 04:00 Miscellaneous Information This patient trujillo... PRN PRN XX WOUND CARE; Start 02/21 at 01:00 Vancomycin HCl/ Sodium Chloride (Vancocin/NS) 250 ml @ 83.333 mls/ hr Q8H IVPB Last administered on 02/23/17 08:01; Admin Dose 83.333 MLS/HR; Start at 17:00 Miscellaneous Information (*Rx Drug Level Order Reminder*) VANCOMYCIN TROUGH AT 1600 ONCE ONCE XX ; Start 02/23/17 at 16:00; Stop 02/23/17 at 16:01 Procedures Procedures PROCEDURE: MRI OF THE RIGHT FOOT. CLINICAL INDICATION: Forefoot infection TECHNIQUE: Multiple MRI images of the right foot were obtained in multiple planes utilizing multiple pulse sequences. Images were interpreted on the high- resolution PACS system. COMPARISON: None. FINDINGS: There is motion artifact limiting evaluation of the foot. 1st ray: There are bony destructive changes with bone marrow edema and abnormal dark T1 signal within the first distal phalanx. There is also bone marrow edema with abnormal dark T1 signal within the first proximal phalanx more prominent distally with bony destructive changes within the distal aspect at the first interphalangeal joint. There is irregularity of the skin along the medial plantar aspect of the first toe in keeping with a skin ulcer with soft tissue edema. There is no drainable abscess. A small to moderate amount of joint fluid is present at the first interphalangeal joint. There are no bony destructive changes within the first metatarsophalangeal joint. There is slight hallux valgus deformity of the first metatarsophalangeal joint with partial thickness chondral loss and osseous spurring. The collateral ligaments appear intact. 2nd ray: There is no acute fracture, bone marrow edema, or evidence of osteomyelitis within the second digit. There is dorsal subluxation of the second proximal phalanx relative to the metatarsal with mild degeneration of the plantar plate. The chondral surfaces appear intact. The collateral ligaments are intact. There is no significant joint effusion. 3rd ray through 5th ray: There is no acute fracture, bone marrow edema, or evidence of osteomyelitis within the third through fifth digits. There is also dorsal subluxation of the proximal phalanges relative to the metatarsals. The collateral ligaments otherwise appear intact at the metatarsophalangeal joints. There is no significant joint effusion. MIDFOOT: The tarsometatarsal joints are intact with mild chondral loss. The Lisfranc's ligament is intact. Other findings: There is no discrete Cummings's neuroma. No plantar fibroma is visualized. There is diffuse edema within the subcutaneous soft tissues of the dorsal foot. There is also fatty atrophy of the muscles throughout the midfoot and forefoot. There is trace fluid surrounding the flexor hallucis longus tendon at the level of the first metatarsal. RPTAT: ZZ IMPRESSION: 1. Osteomyelitis of the first toe - distal phalanx and proximal phalanx across the interphalangeal joint with bony destructive changes and an adjacent skin ulcer. No discrete drainable abscess. 2. Hammertoe deformity of the lesser metatarsophalangeal joints. 3. Diffuse edema within the subcutaneous soft tissues of the dorsal foot which may be from cellulitis or nonspecific peripheral edema. .Beatriz Ann MD, MD Date Time Electronically viewed and signed by .Beatriz Ann MD, MD on 02/21/2017 17: 59 PROCEDURE: MRI OF THE LEFT FOOT. CLINICAL INDICATION: Left forefoot infection. TECHNIQUE: Multiple MRI images of the left foot were obtained in multiple planes utilizing multiple pulse sequences. Images were interpreted on the high- resolution PACS system. COMPARISON: None. FINDINGS: A surface marker is noted along the plantar aspect of the foot over the fourth/ fifth metatarsophalangeal joints. 1st ray: There is no acute fracture or dislocation. There is partial thickness chondral loss with a small focus of high-grade chondral loss to bone within the first metatarsophalangeal joint with mild osseous spurring. There is mild subchondral marrow edema within the first metatarsal head. The collateral ligaments are intact. There is no significant joint effusion. Alignment is maintained. There is no evidence of osteomyelitis within the first digit. The first interphalangeal joint is intact. 2nd ray: There is no acute fracture or dislocation. There is no bone marrow edema or evidence of osteomyelitis. There is dorsal subluxation of the proximal phalanx relative to the metatarsal with degeneration of the plantar plate. The collateral ligaments appear intact. There is suggestion of partial thickness chondral loss at the metatarsophalangeal joint. No significant joint effusion is present. 3rd ray through 5th ray: There is bone marrow edema with abnormal dark T1 signal within the third distal phalanx with bony destructive changes and a small adjacent skin ulcer on axial images 04-06. The bone marrow edema also extends into the third middle phalanx across the distal interphalangeal joint. No significant bony destructive changes are present within the middle phalanx. There is no acute fracture, bone marrow edema, or evidence of osteomyelitis within the fourth or fifth digits. There is also dorsal subluxation of the proximal phalanges relative to the metatarsals. The collateral ligaments are intact. No significant joint effusion is present. MIDFOOT: The tarsometatarsal joints are intact with mild chondral loss and osseous spurring. No significant bone marrow edema is present. Other findings: There is edema within the subcutaneous soft tissues of the dorsal foot. There is no discrete Cummings's neuroma. No plantar fibroma is visualized. There is fatty atrophy of the muscles around the midfoot and forefoot. RPTAT: ZZ IMPRESSION: 1. Findings suggestive of osteomyelitis involving the third middle and distal phalanges with abnormal marrow signal and bony destructive changes within the distal phalanx with an adjacent skin ulcer. 2. Hammertoe deformity of the second through fifth digits. 3. Osteoarthrosis of the first metatarsophalangeal joint with partial thickness chondral loss in part to bone, osseous spurring, and marrow edema. 4. Diffuse edema throughout the subcutaneous soft tissues of the dorsal foot which may be from cellulitis and/or nonspecific peripheral edema. .Beatriz Ann MD, MD Date Time Electronically viewed and signed by .Beatriz Ann MD, MD on 02/21/2017 17:52 SALLY BOLANOS Feb 23, 2017 10:05
--- NOTE | 2017-02-23 15:47 | CONS ---
Date/Time of Note Date/Time of Note DATE: 02/23/17 TIME: 15:47 Assessment/Plan Assessment/Plan Chief Complaint/Hosp Course No acute events overnight. Patient is alert lying comfortably in bed, family at bedside Temperature 97.7 pulse 90 respirations 18 blood pressure 114/64 saturation 94 on room air WBC 9.7 H&H 12.5 and 36.2 platelets 322 neutrophils 79.3 BN 7 creatinine 0.75 Microbiology: Blood culture remain negative wound culture growing Streptococcus Proteus mirabilis enterococcus species MRI of left foot revealed osteomyelitis involving the third middle and distal phalanges. MRI of the right foot revealed osteomyelitis of the first toe Antibiotics: Vancomycin, Levaquin Physical examination: Morbidly obese middle-aged man who is alert in no distress. Head atraumatic normocephalic sclera nonicteric. Neck is supple. Chest rise symmetrical breath sounds clear. Heart: S1-S2. Abdomen soft, bowel tones present. Extremities with bilateral lower extremity lymphedema edema and erythema. Assessment: 1. Bilateral lower extremity cellulitis with evidence of osteomyelitis per MRI and right big toe open wound 2. Bilateral lower extremities chronic lymphedema 3. Diabetes 4. Morbid obesity 5. Status post sepsis Plan: Stable, pending final sensitivities, continue antibiotics continue local wound care as per podiatry, follow vascular recommendations. Consider PICC line placement for long-term IV antibiotics Problems: Consultation Date/Type/Reason Admit Date/Time Feb 20, 2017 at 04:07 Initial Consult Date 02/21/17 Type of Consultation: ID Referring Provider: SALLY BOLANOS Exam/Review of Systems Vital Signs Vitals Vital Signs Date Time Temp Pulse Resp B/P Pulse Ox O2 Delivery O2 Flow Rate FiO2 02/23/17 12:40 97.7 93 18 114/64 93 02/20/17 22:31 Nasal Cannula 02/20/17 18:00 2.0 02/20/17 01:38 28 Intake and Output 02/22/17 02/22/17 02/23/17 15:00 23:00 07:00 Intake Total 500 ml 650 ml 1750 ml Balance 500 ml 650 ml 1750 ml Results Result Diagram: 02/23/17 0611 02/23/17 0612 Results 24 hrs Laboratory Tests Test 02/22/17 17:06 02/22/17 20:18 02/22/17 21:01 02/23/17 00:15 Bedside Glucose 83 59 L 91 106 Test 02/23/17 06:11 02/23/17 06:12 02/23/17 07:52 02/23/17 11:25 White Blood Count 9.7 # Red Blood Count 4.77 Hemoglobin 12.5 L Hematocrit 36.2 L Mean Corpuscular Volume 75.9 L Mean Corpuscular Hemoglobin 26.2 L Mean Corpuscular Hemoglobin Concent 34.5 Red Cell Distribution Width 12.9 Platelet Count 322 Mean Platelet Volume 10.9 H Neutrophils % 79.3 H Lymphocytes % 10.1 L Monocytes % 7.6 Eosinophils % 1.0 Basophils % 0.3 Nucleated Red Blood Cells % 0.0 Neutrophils # 7.7 H Lymphocytes # 1.0 Monocytes # 0.7 Eosinophils # 0.1 Basophils # 0.0 Nucleated Red Blood Cells # 0.0 Sodium Level 140 Potassium Level 3.0 L Chloride Level 99 Carbon Dioxide Level 30 Anion Gap 14 Blood Urea Nitrogen 7 Creatinine 0.75 Glucose Level 102 Calcium Level 8.0 L Phosphorus Level 2.8 Magnesium Level 1.8 Bedside Glucose 87 121 Medications Medications Current Medications Aspirin (Halfprin) 81 mg DAILY PO Last administered on 02/23/17 08:01; Admin Dose 81 MG; Start 02/20/17 at 09:00 Gabapentin (Neurontin) 600 mg BID PO Last administered on 02/23/17 08:00; Admin Dose 600 MG; Start 02/20/17 at 09:00 Insulin Glargine (Lantus) 20 unit BID@08,20 SC Last administered on 02/23/17 07:57; Admin Dose 20 UNIT; Start 02/20/17 at 08:30 Diagnostic Test (Pha) (Accu-Chek) 1 ea 02 XX ; Start 02/21/17 at 02:00 Ondansetron HCl (Zofran Inj) 4 mg Q6H PRN IV NAUSEA AND/OR VOMITING Last administered on 02/21/17 12:30; Admin Dose 4 MG; Start 02/20/17 at 08:30 Metoclopramide HCl (Reglan) 10 mg Q6H PRN IV NAUSEA AND/OR VOMITING Last administered on 02/20/17 15:56; Admin Dose 10 MG; Start 02/20/17 at 08:30 Acetaminophen (Tylenol Tab) 650 mg Q6H PRN PO PAIN LEVEL 1-3 OR FEVER; Start at 08:30 Acetaminophen/ Hydrocodone Bitart ([place] (5/325)) 1 tab Q6H PRN PO PAIN LEVEL 4 -6; Start 02/20/17 at 08:30 Acetaminophen/ Hydrocodone Bitart ([place] (5/325)) 2 tab Q6H PRN PO PAIN LEVEL 7 -10; Start 02/20/17 at 08:30 Morphine Sulfate (morphine) 2 mg Q4H PRN IV PAIN LEVEL 7-10; Start 02/20/17 at 08:30 Docusate Sodium (Colace) 100 mg Q12H PRN PO CONSTIPATION; Start 02/20/17 at 08: 30 Magnesium Hydroxide (Milk Of Mag) 30 ml DAILY PRN PO CONSTIPATION; Start at 08:30 Bisacodyl (Dulcolax Supp) 10 mg DAILY PRN [place] CONSTIPATION; Start 02/20/17 at 08 :30 Pantoprazole (Protonix Tab) 40 mg DAILY@06 PO Last administered on 02/23/17 06 :21; Admin Dose 40 MG; Start 02/21/17 at 06:00 Miscellaneous Information 1 ea NOTE XX ; Start 02/20/17 at 09:00 Glucose (Glutose) 15 gm Q15M PRN PO DECREASED GLUCOSE; Start 02/20/17 at 09:00 Glucose (Glutose) 22.5 gm Q15M PRN PO DECREASED GLUCOSE; Start 02/20/17 at 09: 00 Dextrose (D50w Syringe) 25 ml Q15M PRN IV DECREASED GLUCOSE; Start 02/20/17 at 09:00 Dextrose (D50w Syringe) 50 ml Q15M PRN IV DECREASED GLUCOSE; Start 02/20/17 at 09:00 Glucagon (Glucagen) 1 mg Q15M PRN IM DECREASED GLUCOSE; Start 02/20/17 at 09:00 Glucose (Glutose) 15 gm Q15M PRN BUCCAL DECREASED GLUCOSE; Start 02/20/17 at 09 :00 Enoxaparin Sodium 30 mg 30 mg BID SC Last administered on 02/23/17 08:00; Admin Dose 30 MG; Start 02/20/17 at 21:00 Levofloxacin/ Dextrose (Levaquin 750 Mg/ D5W 150 ml (Pmx)) 150 ml @ 100 mls/hr Q24H IVPB Last administered on 02/23/17 06:22; Admin Dose 100 MLS/HR; Start at 04:00 Miscellaneous Information This patient trujillo... PRN PRN XX WOUND CARE; Start 02/21 at 01:00 Vancomycin HCl/ Sodium Chloride (Vancocin/NS) 250 ml @ 83.333 mls/ hr Q8H IVPB Last administered on 02/23/17 08:01; Admin Dose 83.333 MLS/HR; Start at 17:00 Miscellaneous Information (*Rx Drug Level Order Reminder*) VANCOMYCIN TROUGH AT 1600 ONCE ONCE XX ; Start 02/23/17 at 16:00; Stop 02/23/17 at 16:01 BERNARDO LEW NP Feb 23, 2017 15:47
--- NOTE | 2017-02-23 17:59 | RADRPT ---
PROCEDURE: XR Chest. CLINICAL INDICATION: Check PICC line position. TECHNIQUE: Single frontal view. COMPARISON: 02/20/2017. FINDINGS: There is a left arm PICC line with the tip in the lower superior vena cava. The lungs are clear. The heart size is normal. There is no pleural effusion. There is no pneumothorax. IMPRESSION: 1. Left arm PICC line tip in satisfactory position. 2. Otherwise normal chest radiograph. RPTAT: QQ .Chan Hill MD, MD Date Time Electronically viewed and signed by .Chan Hill MD, MD on 02/23/2017 17:58 .R/
[2017-02-23] MEDS ORDERED: SOD CHLORIDE 0.9% 100 ML ONE (18:27)
--- NOTE | 2017-02-23 19:16 | RADRPT ---
Echocardiogram Report Patient Name: JUAN R MONTOYA Gender: Male Date: 1970 Study Date: 23-Feb-2017 Business Excellence Leader: Lev Diaz [facility] Location: [id number] Ref. Physician: NELDA BOLANOS Quality: Good Procedures: Transthoracic echocardiogram with complete 2D, M-Mode, and doppler examination. Indications: Pre-op. 2D/M Mode Doppler Measurement Value Normal Ranges Measurement Value Normal Ranges LVIDd 2D 5.0 3.5 - 5.6 cm WENDY Vmax 4.0 cm2 LVIDs 2D 2.5 2.1 - 4.1 cm WENDY VTI 4.0 cm2 LVPWd 2D 1.1 0.6 - 1.1 cm AV Mean Srinath 1.1 m/sec IVSd 2D 1.1 0.6 - 1.1 cm AV Mean PG 5.4 mmHg AoR Diam 2D 3.5 2.0 - 3.7 cm AV Peak Srinath 1.5 m/sec EDV 2D 116.0 cm3 AV Peak PG 8.9 mmHg ESV 2D 15.3 cm3 AV VTI 26.0 cm LA Dimen 2D 3.7 2.3 - 4.0 cm LVOT Mean Srinath 0.8 m/sec LVOT Diam 2.6 cm LVOT Mean PG 3.1 mmHg LVOT Peak Srinath 1.1 m/sec LVOT Peak PG 5.2 mmHg LVOT VTI 20.6 cm TR Peak Srinath 2.2 m/sec TR Peak PG 22.9 mmHg RVSP 37.9 mmHg Findings Left Ventricle: Overall, normal left ventricular systolic function. Not all segments visualized. Normal left ventricular cavity size. Mild concentric left ventricular hypertrophy. Ejection fraction is visually estimated at 55 %. Abnormal Diastolic Function. Right Ventricle: Normal right ventricular size. Normal right ventricular systolic function. Not well visualized. Left Atrium: The left atrium is normal in size. Right Atrium: Not well visualized. Mitral Valve: Mitral valve leaflets appear mildly thickened. Mild mitral leaflet calcification. Trace mitral regurgitation. Aortic Valve: Normal appearance of the aortic valve. No significant aortic stenosis or insufficiency. Tricuspid Valve: Normal appearance and function of the tricuspid valve with trace physiologic regurgitation. Estimated peak PA systolic pressure 37 mmHg. Pulmonic Valve: There is trace pulmonic regurgitation. Pericardium: Normal pericardium with no significant pericardial effusion. Aorta: Normal aortic root. IVC: Dilated IVC without respiratory collapse consistent with elevated right atrial pressure. Pulmonary Artery: Not well visualized. Conclusions Overall, normal left ventricular systolic function. Not all segments visualized. Normal left ventricular cavity size. Mild concentric left ventricular hypertrophy. Ejection fraction is visually estimated at 55 %. Abnormal Diastolic Function. Normal right ventricular size. Normal right ventricular systolic function. Not well visualized. The left atrium is normal in size. Not well visualized. No significant valvular stenosis or regurgitation seen. Normal pericardium with no significant pericardial effusion. Electronically Signed By: Nolan Wetzel 23-Feb-2017 19:15:35 -0700 Patient Name: JUAN R MONTOYA Study Date: 23-Feb-2017 [id number]
[2017-02-23] MEDS: VANCOMYCIN 1 GM in NS 250 ML IVPB SCH (20:59)
--- NOTE | 2017-02-23 22:52 | RADRPT ---
PROCEDURE: Ultrasound guidance for placement of needle in left upper extremity vein. CLINICAL INDICATION: Venous access. TECHNIQUE: Limited sonography of the left upper extremity was performed. Ultrasound images were recorded and s tored in the patient's medical record. COMPARISON: None. FINDINGS: The ultrasound images demonstrate a patent left upper extremity vein. The PICC line was inserted by the PICC line nurse. IMPRESSION: 1. Ultrasound guidance for a needle placement in a left upper extremity vein. 2. The left upper extremity vein is patent. RPTAT: QQ .Chan Hill MD, MD Date Time Electronically viewed and signed by .Chan Hill MD, MD on 02/23/2017 22:52 .R/
[2017-02-24] VITALS (12 sets, daily range): BP systolic 108–135; BP diastolic 64–84; PULSE 76–98; RESP 17–20
[2017-02-24] MEDS: ACCU-CHEK XX SCH (01:15)
[2017-02-24] MEDS: VANCOMYCIN 1 GM in NS 250 ML IVPB SCH ×3 (06:02→21:33)
[2017-02-24] MEDS: LEVOFLOXACIN 750MG/D5W (PMX) 150 ML IVPB SCH (06:02)
[2017-02-24] MEDS: PANTOPRAZOLE (EC) 40 MG TAB PO SCH (06:02)
[2017-02-24] MEDS: INSULIN ASPART [NOVOLOG] 3 ML PEN SC SCH ×7 (08:00→21:00)
[2017-02-24 08:07] LABS: ADD SCAN DIFF NO
[2017-02-24 08:13] LABS: BASOPHILS % 0.3 % (0.0-2.0); EOSINOPHILS # 0.1 10^3/ul (0.0-0.5); EOSINOPHILS % 1.6 % (0.0-7.0); HEMOGLOBIN 11.8 g/dl (14.0-18.0); LYMPHOCYTES # 0.9 10^3/ul (0.8-2.9); LYMPHOCYTES % 12.6 % (15.0-51.0); MEAN CORPUSCULAR HEMOGLOBIN 25.6 pg (29.0-33.0); MEAN CORPUSCULAR HGB CONC 33.7 g/dl (32.0-37.0); MEAN CORPUSCULAR VOLUME 75.9 fl (82.0-101.0); MEAN PLATELET VOLUME 9.7 fl (7.4-10.4); MONOCYTE # 0.6 10^3/ul (0.3-0.9); MONOCYTES % 8.6 % (0.0-11.0); NEUTROPHIL # 5.5 10^3/ul (1.6-7.5); PLATELET COUNT 316 10^3/UL (140-415); RED BLOOD COUNT 4.61 10^6/ul (4.70-6.10); RED CELL DISTRIBUTION WIDTH 13.1 % (11.5-14.5); WHITE BLOOD COUNT 7.3 10^3/ul (4.8-10.8)
[2017-02-24] MEDS: ASPIRIN (EC) 81 MG TAB PO SCH (08:18)
[2017-02-24] MEDS: GABAPENTIN 300 MG CAP PO SCH ×2 (08:18→21:15)
[2017-02-24] MEDS: ENOXAPARIN 30 MG/0.3 ML SYG SC SCH ×2 (08:20→21:16)
[2017-02-24] MEDS: INSULIN GLARGINE [LANtus] 3 ML PEN SC SCH ×2 (08:20→21:15)
[2017-02-24 08:35] LABS: MAGNESIUM 1.7 mg/dl (1.7-2.5); PHOSPHORUS 3.4 mg/dl (2.5-4.9)
[2017-02-24 08:37] LABS: CALCIUM 7.8 mg/dl (8.4-10.2); CREATININE 0.69 mg/dl (0.61-1.24)
[2017-02-24 08:47] LABS: POTASSIUM 2.8 mmol/L (3.5-5.1)
[2017-02-24] MEDS ORDERED: POTASSIUM CHLORIDE (SR) 20 MEQ TAB PO STA (09:15)
[2017-02-24] MEDS ORDERED: MAGNESIUM SULFATE 2 GM/50 ML 50 ML IVPB ONE (09:30)
--- NOTE | 2017-02-24 10:49 | PN ---
Date/Time of Note Date/Time of Note DATE: 02/24/17 TIME: 10:13 Assessment/Plan VTE Prophylaxis VTE Prophylaxis Intervention: LMWH Lines/Catheters IV Catheter Type (from Nrsg): PICC Line Central line still needed: Yes (For long-term IV antibiotics) Urinary Cath still in place: No Assessment/Plan Assessment/Plan 47-year-old male: 1. Lower extremity cellulitis, acute on chronic, left lower extremity infection more acute than the right, but also likely with right big toe osteomyelitis. ESR and CRP elevated. MRI actually confirmed osteomyelitis of toes on both feet. Status post PICC line placement yesterday Continue Vanco and Levaquin for now, appreciate infectious disease and vascular surgery recommendation. Per infectious disease continue current antibiotics, per vascular surgery patient is a vasculopath but no emergent surgeries, more important to control infection and wound. Podiatry recommendations pending regarding surgical amputation of the infected toes and wound care. 2. Sepsis likely secondary to cellulitis and diabetic wound with osteomyelitis of a few toes bilaterally. Patient better clinically Continue vancomycin and Levaquin. Appreciate ID recommendations. 3. Diabetes mellitus, uncontrolled. A1c 12.2. BG now well controlled. ADA diet Continue current insulin regimen. Tolerating po Diabetic education ordered. 4. Nausea vomiting likely secondary to diabetic gastroparesis at this time, Reglan will be scheduled before meals and at bedtime. Continue Zofran prn. 5. Bilateral lower extremity edema most likely consistent with lymphedema and poor venous return, also with ongoing infection, Treat underlying infection, Lasix as needed. 6. Hypokalemia: replete K and mag today. 7. Sinus tachycardia: Resolved CT angiogram of the chest negative for PE, EKG just showing sinus tachycardia yesterday no acute changes. 2D echocardiogram within normal limits From the medical standpoint , patient okay to proceed with surgical amputation of some of his toes if still recommended by podiatry. 8. Morbid obesity: Lifestyle modification Prophylaxis: Lovenox for DVT prophylaxis, Protonix for GI prophylaxis Disposition: Awaiting recommendation from podiatry for further plan of care and PICC line placed. Subjective 24 Hr Interval Summary Free Text/Dictation Patient remained stable, he remains afebrile white blood cell count down to normal. Per MRI results patient with osteomyelitis on a few of his toes bilaterally, awaiting for podiatry further recommendation Status post PICC line placement overnight. Appreciate infectious disease recommendations Patient with episodes of nausea and vomiting, likely diabetic gastroparesis, scheduled Reglan will be resumed. Exam/Review of Systems Vital Signs Vitals Vital Signs Date Time Temp Pulse Resp B/P Pulse Ox O2 Delivery O2 Flow Rate FiO2 02/24/17 08:16 97.7 88 17 120/64 96 02/20/17 22:31 Nasal Cannula 02/20/17 18:00 2.0 Intake and Output 02/23/17 02/23/17 02/24/17 15:00 23:00 07:00 Intake Total 650 ml Output Total 250 ml Balance 400 ml Exam Constitutional: alert, obese, oriented, well developed Respiratory: clear to auscultation, normal air movement Cardiovascular: nl pulses, regular rate and rhythm Gastrointestinal: non-tender, soft Extremities: normal pulses, other Neurological: CERTIFIED WELDER II-XII intact, nl mental status, nl speech, nl strength, other (Ambulation limited by lower extremity infections) Results Result Diagram: 02/24/17 0757 02/24/17 0757 Results 24 hrs Laboratory Tests Test 02/23/17 11:25 02/23/17 15:50 02/23/17 16:47 02/23/17 20:18 Bedside Glucose 121 76 115 Vancomycin Level Trough 18.1 Test 02/24/17 07:57 02/24/17 08:16 White Blood Count 7.3 # Red Blood Count 4.61 L Hemoglobin 11.8 L Hematocrit 35.0 L Mean Corpuscular Volume 75.9 L Mean Corpuscular Hemoglobin 25.6 L Mean Corpuscular Hemoglobin Concent 33.7 Red Cell Distribution Width 13.1 Platelet Count 316 Mean Platelet Volume 9.7 Neutrophils % 75.0 Lymphocytes % 12.6 L Monocytes % 8.6 Eosinophils % 1.6 Basophils % 0.3 Nucleated Red Blood Cells % 0.0 Neutrophils # 5.5 Lymphocytes # 0.9 Monocytes # 0.6 Eosinophils # 0.1 Basophils # 0.0 Nucleated Red Blood Cells # 0.0 Sodium Level 141 Potassium Level 2.8 *L Chloride Level 100 Carbon Dioxide Level 29 Anion Gap 15 Blood Urea Nitrogen 6 L Creatinine 0.69 Glucose Level 149 # Calcium Level 7.8 L Phosphorus Level 3.4 Magnesium Level 1.7 Bedside Glucose 112 Medications Medications Current Medications Aspirin (Halfprin) 81 mg DAILY PO Last administered on 02/24/17 08:18; Admin Dose 81 MG; Start 02/20/17 at 09:00 Gabapentin (Neurontin) 600 mg BID PO Last administered on 02/24/17 08:18; Admin Dose 600 MG; Start 02/20/17 at 09:00 Insulin Glargine (Lantus) 20 unit BID@08,20 SC Last administered on 02/24/17 08:20; Admin Dose 20 UNIT; Start 02/20/17 at 08:30 Diagnostic Test (Pha) (Accu-Chek) 1 ea 02 XX ; Start 02/21/17 at 02:00 Ondansetron HCl (Zofran Inj) 4 mg Q6H PRN IV NAUSEA AND/OR VOMITING Last administered on 02/21/17 12:30; Admin Dose 4 MG; Start 02/20/17 at 08:30 Metoclopramide HCl (Reglan) 10 mg Q6H PRN IV NAUSEA AND/OR VOMITING Last administered on 02/20/17 15:56; Admin Dose 10 MG; Start 02/20/17 at 08:30 Acetaminophen (Tylenol Tab) 650 mg Q6H PRN PO PAIN LEVEL 1-3 OR FEVER; Start at 08:30 Acetaminophen/ Hydrocodone Bitart ([place] (5/325)) 1 tab Q6H PRN PO PAIN LEVEL 4 -6; Start 02/20/17 at 08:30 Acetaminophen/ Hydrocodone Bitart ([place] (5/325)) 2 tab Q6H PRN PO PAIN LEVEL 7 -10; Start 02/20/17 at 08:30 Morphine Sulfate (morphine) 2 mg Q4H PRN IV PAIN LEVEL 7-10; Start 02/20/17 at 08:30 Docusate Sodium (Colace) 100 mg Q12H PRN PO CONSTIPATION; Start 02/20/17 at 08: 30 Magnesium Hydroxide (Milk Of Mag) 30 ml DAILY PRN PO CONSTIPATION; Start at 08:30 Bisacodyl (Dulcolax Supp) 10 mg DAILY PRN [place] CONSTIPATION; Start 02/20/17 at 08 :30 Pantoprazole (Protonix Tab) 40 mg DAILY@06 PO Last administered on 02/24/17 06 :02; Admin Dose 40 MG; Start 02/21/17 at 06:00 Miscellaneous Information 1 ea NOTE XX ; Start 02/20/17 at 09:00 Glucose (Glutose) 15 gm Q15M PRN PO DECREASED GLUCOSE; Start 02/20/17 at 09:00 Glucose (Glutose) 22.5 gm Q15M PRN PO DECREASED GLUCOSE; Start 02/20/17 at 09: 00 Dextrose (D50w Syringe) 25 ml Q15M PRN IV DECREASED GLUCOSE; Start 02/20/17 at 09:00 Dextrose (D50w Syringe) 50 ml Q15M PRN IV DECREASED GLUCOSE; Start 02/20/17 at 09:00 Glucagon (Glucagen) 1 mg Q15M PRN IM DECREASED GLUCOSE; Start 02/20/17 at 09:00 Glucose (Glutose) 15 gm Q15M PRN BUCCAL DECREASED GLUCOSE; Start 02/20/17 at 09 :00 Enoxaparin Sodium 30 mg 30 mg BID SC Last administered on 02/24/17 08:20; Admin Dose 30 MG; Start 02/20/17 at 21:00 Levofloxacin/ Dextrose (Levaquin 750 Mg/ D5W 150 ml (Pmx)) 150 ml @ 100 mls/hr Q24H IVPB Last administered on 02/24/17 06:02; Admin Dose 100 MLS/HR; Start at 04:00 Miscellaneous Information This patient trujillo... PRN PRN XX WOUND CARE; Start 02/21 at 01:00 Vancomycin HCl 250 ml @ 125 mls/hr Q8H IVPB Last administered on 02/24/17 06: 02; Admin Dose 125 MLS/HR; Start 02/23/17 at 21:00 Potassium Chloride 250 ml @ 62.5 mls/hr Q4H IVPB ; Start 02/24/17 at 10:30; Stop 02/24/17 at 18:29 Magnesium Sulfate (Magnesium Sulfate 2 Gm/50 ml) 50 ml @ 25 mls/hr ONCE ONCE IVPB ; Start 02/24/17 at 09:30; Stop 02/24/17 at 11:29 Procedures Procedures Echocardiogram Report Patient Name: JUAN R MONTOYA Gender: Male Date: 1970 Study Date: 23-Feb-2017 Rn Dermatology: Lev Diaz RDCS Location: [facility] Ref. Physician: NELDA BOLANOS Quality: Good Procedures: Transthoracic echocardiogram with complete 2D, M-Mode, and doppler examination. Indications: Pre-op. 2D/M Mode Doppler Measurement Value Normal Ranges Measurement Value Normal Ranges LVIDd 2D 5.0 3.5 - 5.6 cm WENDY Vmax 4.0 cm2 LVIDs 2D 2.5 2.1 - 4.1 cm WENDY VTI 4.0 cm2 LVPWd 2D 1.1 0.6 - 1.1 cm AV Mean Srinath 1.1 m/sec IVSd 2D 1.1 0.6 - 1.1 cm AV Mean PG 5.4 mmHg AoR Diam 2D 3.5 2.0 - 3.7 cm AV Peak Srinath 1.5 m/sec EDV 2D 116.0 cm3 AV Peak PG 8.9 mmHg ESV 2D 15.3 cm3 AV VTI 26.0 cm LA Dimen 2D 3.7 2.3 - 4.0 cm LVOT Mean Srinath 0.8 m/sec LVOT Diam 2.6 cm LVOT Mean PG 3.1 mmHg LVOT Peak Srinath 1.1 m/sec LVOT Peak PG 5.2 mmHg LVOT VTI 20.6 cm TR Peak Srinath 2.2 m/sec TR Peak PG 22.9 mmHg RVSP 37.9 mmHg Findings Left Ventricle: Overall, normal left ventricular systolic function. Not all segments visualized. Normal left ventricular cavity size. Mild concentric left ventricular hypertrophy. Ejection fraction is visually estimated at 55 %. Abnormal Diastolic Function. Right Ventricle: Normal right ventricular size. Normal right ventricular systolic function. Not well visualized. Left Atrium: The left atrium is normal in size. Right Atrium: Not well visualized. Mitral Valve: Mitral valve leaflets appear mildly thickened. Mild mitral leaflet calcification. Trace mitral regurgitation. Aortic Valve: Normal appearance of the aortic valve. No significant aortic stenosis or insufficiency. Tricuspid Valve: Normal appearance and function of the tricuspid valve with trace physiologic regurgitation. Estimated peak PA systolic pressure 37 mmHg. Pulmonic Valve: There is trace pulmonic regurgitation. Pericardium: Normal pericardium with no significant pericardial effusion. Aorta: Normal aortic root. IVC: Dilated IVC without respiratory collapse consistent with elevated right atrial pressure. Pulmonary Artery: Not well visualized. Conclusions Overall, normal left ventricular systolic function. Not all segments visualized. Normal left ventricular cavity size. Mild concentric left ventricular hypertrophy. Ejection fraction is visually estimated at 55 %. Abnormal Diastolic Function. Normal right ventricular size. Normal right ventricular systolic function. Not well visualized. The left atrium is normal in size. Not well visualized. No significant valvular stenosis or regurgitation seen. Normal pericardium with no significant pericardial effusion. Electronically Signed By: Nolan Wetzel 23-Feb-2017 19:15:35 -0700 SALLY BOLANOS Feb 24, 2017 10:28
[2017-02-24] MEDS: METOCLOPRAMIDE 10 MG INJ IV SCH ×3 (12:10→21:15)
[2017-02-24] MEDS: POTASSIUM CHLORIDE 250 ML IVPB SCH ×2 (12:48→18:04)
--- NOTE | 2017-02-24 13:51 | RADRPT ---
Vent Rate: 106 bpm RR Interval: 0 msec VA Interval: 120 msec QRS Duration: 82 msec QT Interval: 342 msec QTC Interval: 454 msec P-R-T [place]: 58 - -14 - 25 degrees Sinus tachycardia Low voltage QRS Cannot rule out Anterior infarct , age undetermined Abnormal ECG Electronically Signed By: Nolan Wetzel [id number]
--- NOTE | 2017-02-24 17:19 | CONS ---
Date/Time of Note Date/Time of Note DATE: 02/24/17 TIME: 17:18 Assessment/Plan Assessment/Plan Chief Complaint/Hosp Course No acute events overnight. Patient is alert lying comfortably in bed, feels good Microbiology: Blood culture remain negative wound culture growing Streptococcus Proteus mirabilis enterococcus species MRI of left foot revealed osteomyelitis involving the third middle and distal phalanges. MRI of the right foot revealed osteomyelitis of the first toe Antibiotics: Vancomycin, Levaquin Physical examination: Morbidly obese middle-aged man who is alert in no distress. Head atraumatic normocephalic sclera nonicteric. Neck is supple. Chest rise symmetrical breath sounds clear. Heart: S1-S2. Abdomen soft, bowel tones present. Extremities with bilateral lower extremity lymphedema edema and erythema. Assessment: 1. Bilateral lower extremity cellulitis with evidence of osteomyelitis per MRI and right big toe open wound 2. Bilateral lower extremities chronic lymphedema 3. Diabetes 4. Morbid obesity 5. Status post sepsis Plan: Remains stable, continue antibiotics continue local wound care as per podiatry, follow vascular recommendations. Anticipate discharge on oral Levaquin and IV vancomycin for 6-8 weeks Discussed with patient Discussed with Dr Bolanos Problems: Consultation Date/Type/Reason Admit Date/Time Feb 20, 2017 at 04:07 Initial Consult Date 02/21/17 Type of Consultation: ID Referring Provider: SALLY BOLANOS Exam/Review of Systems Vital Signs Vitals Vital Signs Date Time Temp Pulse Resp B/P Pulse Ox O2 Delivery O2 Flow Rate FiO2 02/24/17 16:33 84 02/24/17 16:21 97.8 17 131/81 98 02/20/17 22:31 Nasal Cannula 02/20/17 18:00 2.0 Intake and Output 02/23/17 02/23/17 02/24/17 15:00 23:00 07:00 Intake Total 650 ml Output Total 250 ml Balance 400 ml Results Result Diagram: 02/24/17 0757 02/24/17 0757 Results 24 hrs Laboratory Tests Test 02/23/17 20:18 02/24/17 07:57 02/24/17 08:16 02/24/17 12:08 Bedside Glucose 115 112 91 White Blood Count 7.3 # Red Blood Count 4.61 L Hemoglobin 11.8 L Hematocrit 35.0 L Mean Corpuscular Volume 75.9 L Mean Corpuscular Hemoglobin 25.6 L Mean Corpuscular Hemoglobin Concent 33.7 Red Cell Distribution Width 13.1 Platelet Count 316 Mean Platelet Volume 9.7 Neutrophils % 75.0 Lymphocytes % 12.6 L Monocytes % 8.6 Eosinophils % 1.6 Basophils % 0.3 Nucleated Red Blood Cells % 0.0 Neutrophils # 5.5 Lymphocytes # 0.9 Monocytes # 0.6 Eosinophils # 0.1 Basophils # 0.0 Nucleated Red Blood Cells # 0.0 Sodium Level 141 Potassium Level 2.8 *L Chloride Level 100 Carbon Dioxide Level 29 Anion Gap 15 Blood Urea Nitrogen 6 L Creatinine 0.69 Glucose Level 149 # Calcium Level 7.8 L Phosphorus Level 3.4 Magnesium Level 1.7 Medications Medications Current Medications Aspirin (Halfprin) 81 mg DAILY PO Last administered on 02/24/17 08:18; Admin Dose 81 MG; Start 02/20/17 at 09:00 Gabapentin (Neurontin) 600 mg BID PO Last administered on 02/24/17 08:18; Admin Dose 600 MG; Start 02/20/17 at 09:00 Insulin Glargine (Lantus) 20 unit BID@08,20 SC Last administered on 02/24/17 08:20; Admin Dose 20 UNIT; Start 02/20/17 at 08:30 Diagnostic Test (Pha) (Accu-Chek) 1 ea 02 XX ; Start 02/21/17 at 02:00 Ondansetron HCl (Zofran Inj) 4 mg Q6H PRN IV NAUSEA AND/OR VOMITING Last administered on 02/21/17 12:30; Admin Dose 4 MG; Start 02/20/17 at 08:30 Metoclopramide HCl (Reglan) 10 mg Q6H PRN IV NAUSEA AND/OR VOMITING Last administered on 02/20/17 15:56; Admin Dose 10 MG; Start 02/20/17 at 08:30 Acetaminophen (Tylenol Tab) 650 mg Q6H PRN PO PAIN LEVEL 1-3 OR FEVER; Start at 08:30 Acetaminophen/ Hydrocodone Bitart ([place] (5/325)) 1 tab Q6H PRN PO PAIN LEVEL 4 -6; Start 02/20/17 at 08:30 Acetaminophen/ Hydrocodone Bitart ([place] (5/325)) 2 tab Q6H PRN PO PAIN LEVEL 7 -10; Start 02/20/17 at 08:30 Morphine Sulfate (morphine) 2 mg Q4H PRN IV PAIN LEVEL 7-10; Start 02/20/17 at 08:30 Docusate Sodium (Colace) 100 mg Q12H PRN PO CONSTIPATION; Start 02/20/17 at 08: 30 Magnesium Hydroxide (Milk Of Mag) 30 ml DAILY PRN PO CONSTIPATION; Start at 08:30 Bisacodyl (Dulcolax Supp) 10 mg DAILY PRN [place] CONSTIPATION; Start 02/20/17 at 08 :30 Pantoprazole (Protonix Tab) 40 mg DAILY@06 PO Last administered on 02/24/17 06 :02; Admin Dose 40 MG; Start 02/21/17 at 06:00 Miscellaneous Information 1 ea NOTE XX ; Start 02/20/17 at 09:00 Glucose (Glutose) 15 gm Q15M PRN PO DECREASED GLUCOSE; Start 02/20/17 at 09:00 Glucose (Glutose) 22.5 gm Q15M PRN PO DECREASED GLUCOSE; Start 02/20/17 at 09: 00 Dextrose (D50w Syringe) 25 ml Q15M PRN IV DECREASED GLUCOSE; Start 02/20/17 at 09:00 Dextrose (D50w Syringe) 50 ml Q15M PRN IV DECREASED GLUCOSE; Start 02/20/17 at 09:00 Glucagon (Glucagen) 1 mg Q15M PRN IM DECREASED GLUCOSE; Start 02/20/17 at 09:00 Glucose (Glutose) 15 gm Q15M PRN BUCCAL DECREASED GLUCOSE; Start 02/20/17 at 09 :00 Enoxaparin Sodium 30 mg 30 mg BID SC Last administered on 02/24/17 08:20; Admin Dose 30 MG; Start 02/20/17 at 21:00 Levofloxacin/ Dextrose (Levaquin 750 Mg/ D5W 150 ml (Pmx)) 150 ml @ 100 mls/hr Q24H IVPB Last administered on 02/24/17 06:02; Admin Dose 100 MLS/HR; Start at 04:00 Miscellaneous Information This patient trujillo... PRN PRN XX WOUND CARE; Start 02/21 at 01:00 Vancomycin HCl 250 ml @ 125 mls/hr Q8H IVPB Last administered on 7/18/17at 12: 14; Admin Dose 125 MLS/HR; Start 02/23/17 at 21:00 Potassium Chloride (KCl 40 MEQ/250 ML NS) 250 ml @ 62.5 mls/hr Q4H IVPB Last administered on 02/24/17 12:48; Admin Dose 62.5 MLS/HR; Start 02/24/17 at 10:30 ; Stop 02/24/17 at 18:29 BERNARDO LEW FLAP LINING BINDER Feb 24, 2017 17:19
--- NOTE | 2017-02-24 19:01 | PN ---
Date/Time of Note Date/Time of Note DATE: 02/24/17 TIME: 19:00 Assessment/Plan Lines/Catheters IV Catheter Type (from Nrs): PICC Line Lerma in Place (from Nrsg): No Assessment/Plan Chief Complaint/Hosp Course 47-year-old M w/ diabetes mellitus recently started on insulin, neuropathy, morbid obesity with chronic severe BLE edema and foot wounds, no evidence of arterial insufficiency on physical exam now that edema is markedly improved and CTA abd/pel/BLE runoff also shows no evidence of arterial pathology; images reviewed Plan: -Appreciate medical and Podiatry management -Cont abx per ID -F/u Dr. Knott's recs -Recommend JAYLON wrap compression to BLE from base of toes to knees when not in bed for compressive therapy -Pt will require evaluation for BLE venous insufficiency but this can be done as outpatient -Will follow Thank you and please call with questions Problems: Subjective 24 Hr Interval Summary Pt feels "much better" and notes marked improvement in BLE edema Exam/Review of Systems Vital Signs Vitals Vital Signs Date Time Temp Pulse Resp B/P Pulse Ox O2 Delivery O2 Flow Rate FiO2 02/25/17 08:37 99 02/25/17 07:29 98.3 18 130/89 95 Intake and Output 02/24/17 02/24/17 02/25/17 14:59 22:59 06:59 Intake Total 3170 ml 250 ml Output Total 2050 ml 900 ml Balance 1120 ml -650 ml Exam Free Text/Dictation Gen: AAOx3, NAD Extr: BLE edema - dramatically improved but still significant, R 1st toe and 3 rd wounds stable w/ devitalized tissue noted Pulses: palpable bilateral femoral, pop, and DP pulses Results Result Diagram: 02/25/17 0714 02/25/17 0714 VIKRAM HERNANDEZ MD Feb 24, 2017 19:01
--- NOTE | 2017-02-24 19:11 | PN ---
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 I also discussed this with patient's parents in great detail. Patient wanted me to involve his parents and called him and placed him on speaker phone. At this time, I would like to try to salvage the right big toe and left third toe. The plan is surgical debridement of necrotic tissue and bone culture in order to identify the organism and its sensitivity to antibiotics. Patient already has a PICC line and is under care of infectious disease specialist. Patient will be followed in-house. I have also discussed the case in great detail with patient' s admitting physician. Patient will be scheduled for debridement and bone culture. Patient will be followed in-house. Prognosis is poor. Subjective 24 Hr Interval Summary Patient was seen at bedside. Patient is in no acute distress. Patient reports no new adverse events. Patient denies fever, chills, nausea or vomiting. Patient denies pain. Patient denies recent trauma. Patient reports bandages are being changed as directed. Patient does not report any new problems. Constitutional: no complaints Pain Control: well controlled Exam/Review of Systems Vital Signs Vitals Vital Signs Date Time Temp Pulse Resp B/P Pulse Ox O2 Delivery O2 Flow Rate FiO2 02/24/17 20:09 95 02/24/17 20:07 97.7 17 135/79 94 02/20/17 22:31 Nasal Cannula 02/20/17 18:00 2.0 Intake and Output 02/23/17 02/23/17 02/24/17 15:00 23:00 07:00 Intake Total 650 ml Output Total 250 ml Balance 400 ml Exam Free Text/Dictation Patient is morbidly obese laying supine in bed in no acute distress. Continues to have an open wound on the right hallux with edema erythema and necrotic tissue. Left second toe edema continues. Right second toe edema continues. MRI was reviewed which shows osteomyelitis of the right hallux. Labs reviewed. MRI of the left foot shows findings suggestive of osteomyelitis involving the third, middle and distal phalanges of the hallux. There is bone marrow edema with abnormal dark T1 signal within the third distal phalanx of the third toe with bony destructive changes and a small adjacent skin ulcer on axial images 0 40 6. MRI of the right foot shows osteomyelitis of the hallux including the entire toe. The second toe shows no bone marrow edema. Results Result Diagram: 02/24/17 0757 02/24/17 0757 BOOGIE GRIFFIN DPM Feb 24, 2017 19:10
[2017-02-24] MEDS: L ACIDOPHIL/B LACTIS/B LONGUM CAPSULE PO SCH (21:13)
[2017-02-25] VITALS (13 sets, daily range): BP systolic 112–162; BP diastolic 57–95; PULSE 80–99; RESP 18–19
[2017-02-25] MEDS: ACCU-CHEK XX SCH (02:00)
[2017-02-25] MEDS: VANCOMYCIN 1 GM in NS 250 ML IVPB SCH ×3 (05:21→20:58)
[2017-02-25] MEDS: LEVOFLOXACIN 750 MG TABLET NGT SCH (05:21)
[2017-02-25] MEDS: PANTOPRAZOLE (EC) 40 MG TAB PO SCH (05:21)
[2017-02-25 07:42] LABS: ADD SCAN DIFF NO
[2017-02-25 07:46] LABS: BASOPHILS % 0.4 % (0.0-2.0); EOSINOPHILS # 0.1 10^3/ul (0.0-0.5); EOSINOPHILS % 1.6 % (0.0-7.0); HEMATOCRIT 40.1 % (42.0-52.0); HEMOGLOBIN 13.3 g/dl (14.0-18.0); LYMPHOCYTES # 1.3 10^3/ul (0.8-2.9); LYMPHOCYTES % 16.6 % (15.0-51.0); MEAN CORPUSCULAR HEMOGLOBIN 25.6 pg (29.0-33.0); MEAN CORPUSCULAR HGB CONC 33.2 g/dl (32.0-37.0); MEAN CORPUSCULAR VOLUME 77.3 fl (82.0-101.0); MEAN PLATELET VOLUME 9.8 fl (7.4-10.4); MONOCYTE # 0.7 10^3/ul (0.3-0.9); MONOCYTES % 8.4 % (0.0-11.0); NEUTROPHIL # 5.7 10^3/ul (1.6-7.5); NEUTROPHILS % 71.1 % (39.0-77.0); PLATELET COUNT 430 10^3/UL (140-415); RED BLOOD COUNT 5.19 10^6/ul (4.70-6.10); RED CELL DISTRIBUTION WIDTH 13.7 % (11.5-14.5)
[2017-02-25 08:00] LABS: MAGNESIUM 1.7 mg/dl (1.7-2.5); PHOSPHORUS 3.7 mg/dl (2.5-4.9)
[2017-02-25 08:05] LABS: CALCIUM 8.6 mg/dl (8.4-10.2); CREATININE 0.69 mg/dl (0.61-1.24)
[2017-02-25] MEDS: L ACIDOPHIL/B LACTIS/B LONGUM CAPSULE PO SCH ×2 (08:09→21:28)
[2017-02-25] MEDS: ASPIRIN (EC) 81 MG TAB PO SCH (08:09)
[2017-02-25] MEDS: METOCLOPRAMIDE 10 MG INJ IV SCH ×4 (08:10→20:49)
[2017-02-25] MEDS: GABAPENTIN 300 MG CAP PO SCH ×2 (08:10→20:58)
[2017-02-25] MEDS: INSULIN GLARGINE [LANtus] 3 ML PEN SC SCH ×2 (08:12→20:49)
[2017-02-25] MEDS: INSULIN ASPART [NOVOLOG] 3 ML PEN SC SCH ×7 (08:13→20:59)
[2017-02-25] MEDS: ENOXAPARIN 30 MG/0.3 ML SYG SC SCH ×2 (08:14→20:50)
[2017-02-25] MEDS ORDERED: POTASSIUM CHLORIDE (SR) 20 MEQ TAB PO STA (09:04)
--- NOTE | 2017-02-25 10:23 | PN ---
Date/Time of Note Date/Time of Note DATE: 02/25/17 TIME: 10:18 Assessment/Plan VTE Prophylaxis VTE Prophylaxis Intervention: LMWH Lines/Catheters IV Catheter Type (from Nrsg): PICC Line Central line still needed: Yes (IV antibiotics and IV access) Urinary Cath still in place: No Assessment/Plan Assessment/Plan 47-year-old male: 1. Bilateral lower extremity cellulitis, acute on chronic, left lower extremity infection more acute than the right, but also likely with right big toe osteomyelitis. ESR and CRP elevated. MRI actually confirmed osteomyelitis of toes on both feet. Status post PICC line placement. Appreciate podiatry recommendation, Dr. Knott had a thorough discussion with patient and his family and patient will be scheduled for a surgical debridement and possible amputation of some of the toes in the next 48 hours. Continue Vanco and Levaquin for now, appreciate infectious disease and vascular surgery recommendation. Per infectious disease continue current antibiotics, per vascular surgery patient is a vasculopath but no emergent surgeries, more important to control infection and wound. 2. Sepsis likely secondary to cellulitis and diabetic wound with osteomyelitis of a few toes bilaterally. Patient better clinically Continue vancomycin and Levaquin. Appreciate ID recommendations. 3. Diabetes mellitus, uncontrolled. A1c 12.2. BG now well controlled. ADA diet Continue current insulin regimen. Tolerating po Diabetic education ordered. 4. Diabetic gastroparesis: Symptoms much better controlled with Reglan before meals and at bedtime. Continue Zofran prn. 5. Bilateral lower extremity edema most likely consistent with lymphedema and poor venous return, also with ongoing infection, much improved. Treat underlying infection, Lasix as needed. 6. Hypokalemia: Still repleting K and mag today. 7. Sinus tachycardia: Resolved CT angiogram of the chest negative for PE, EKG just showing sinus tachycardia yesterday no acute changes. 2D echocardiogram within normal limits From the medical standpoint , patient okay to proceed with surgical amputation of some of his toes if still recommended by podiatry. 8. Morbid obesity: Lifestyle modification Prophylaxis: Lovenox for DVT prophylaxis, Protonix for GI prophylaxis Disposition: Awaiting surgical intervention by podiatry, replete electrolytes. Subjective 24 Hr Interval Summary Free Text/Dictation The patient feels much better today, he is tolerating p.o. well with Reglan on board. He has been seen by podiatry with possible schedule surgery in the next 48 hours for debridement of toes and possible amputation of some of the toes. Blood sugar better control Vital signs stable, afebrile. Exam/Review of Systems Vital Signs Vitals Vital Signs Date Time Temp Pulse Resp B/P Pulse Ox O2 Delivery O2 Flow Rate FiO2 02/25/17 08:37 99 02/25/17 07:29 98.3 18 130/89 95 Intake and Output 02/24/17 02/24/17 02/25/17 15:00 23:00 07:00 Intake Total 3170 ml 250 ml Output Total 2050 ml 900 ml Balance 1120 ml -650 ml Exam Constitutional: alert, obese, oriented, well developed Respiratory: clear to auscultation, normal air movement Cardiovascular: nl pulses, regular rate and rhythm Gastrointestinal: non-tender, soft Musculoskeletal: other (Bilateral lower extremity cellulitis and osteomyelitis of some toes) Extremities: edema (Much improved bilateral lower extremity edema), normal pulses 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, nl mental status, nl speech, nl strength Results Result Diagram: 02/25/1714 02/25/17 0714 Results 24 hrs Laboratory Tests Test 02/24/17 12:08 02/24/17 18:03 02/24/17 20:54 02/25/17 07:14 Bedside Glucose 91 93 94 White Blood Count 8.0 Red Blood Count 5.19 Hemoglobin 13.3 L Hematocrit 40.1 L Mean Corpuscular Volume 77.3 L Mean Corpuscular Hemoglobin 25.6 L Mean Corpuscular Hemoglobin Concent 33.2 Red Cell Distribution Width 13.7 Platelet Count 430 #H Mean Platelet Volume 9.8 Neutrophils % 71.1 Lymphocytes % 16.6 Monocytes % 8.4 Eosinophils % 1.6 Basophils % 0.4 Nucleated Red Blood Cells % 0.0 Neutrophils # 5.7 Lymphocytes # 1.3 Monocytes # 0.7 Eosinophils # 0.1 Basophils # 0.0 Nucleated Red Blood Cells # 0.0 Sodium Level 142 Potassium Level 3.0 L Chloride Level 97 Carbon Dioxide Level 33 H Anion Gap 15 Blood Urea Nitrogen 5 L Creatinine 0.69 Glucose Level 129 Calcium Level 8.6 Phosphorus Level 3.7 Magnesium Level 1.7 Test 02/25/17 08:08 Bedside Glucose 144 Medications Medications Current Medications Aspirin (Halfprin) 81 mg DAILY PO Last administered on 02/25/17 08:09; Admin Dose 81 MG; Start 02/20/17 at 09:00 Gabapentin (Neurontin) 600 mg BID PO Last administered on 02/25/17 08:10; Admin Dose 600 MG; Start 02/20/17 at 09:00 Insulin Glargine (Lantus) 20 unit BID@08,20 SC Last administered on 02/25/17 08:12; Admin Dose 20 UNIT; Start 02/20/17 at 08:30 Diagnostic Test (Pha) (Accu-Chek) 1 ea 02 XX ; Start 02/21/17 at 02:00 Ondansetron HCl (Zofran Inj) 4 mg Q6H PRN IV NAUSEA AND/OR VOMITING Last administered on 02/21/17 12:30; Admin Dose 4 MG; Start 02/20/17 at 08:30 Metoclopramide HCl (Reglan) 10 mg Q6H PRN IV NAUSEA AND/OR VOMITING Last administered on 02/20/17 15:56; Admin Dose 10 MG; Start 02/20/17 at 08:30 Acetaminophen (Tylenol Tab) 650 mg Q6H PRN PO PAIN LEVEL 1-3 OR FEVER; Start at 08:30 Acetaminophen/ Hydrocodone Bitart ([place] (5/325)) 1 tab Q6H PRN PO PAIN LEVEL 4 -6; Start 02/20/17 at 08:30 Acetaminophen/ Hydrocodone Bitart ([place] (5/325)) 2 tab Q6H PRN PO PAIN LEVEL 7 -10; Start 02/20/17 at 08:30 Morphine Sulfate (morphine) 2 mg Q4H PRN IV PAIN LEVEL 7-10; Start 02/20/17 at 08:30 Docusate Sodium (Colace) 100 mg Q12H PRN PO CONSTIPATION; Start 02/20/17 at 08: 30 Magnesium Hydroxide (Milk Of Mag) 30 ml DAILY PRN PO CONSTIPATION; Start at 08:30 Bisacodyl (Dulcolax Supp) 10 mg DAILY PRN [place] CONSTIPATION; Start 02/20/17 at 08 :30 Pantoprazole (Protonix Tab) 40 mg DAILY@06 PO Last administered on 02/25/17 05 :21; Admin Dose 40 MG; Start 02/21/17 at 06:00 Miscellaneous Information 1 ea NOTE XX ; Start 02/20/17 at 09:00 Glucose (Glutose) 15 gm Q15M PRN PO DECREASED GLUCOSE; Start 02/20/17 at 09:00 Glucose (Glutose) 22.5 gm Q15M PRN PO DECREASED GLUCOSE; Start 02/20/17 at 09: 00 Dextrose (D50w Syringe) 25 ml Q15M PRN IV DECREASED GLUCOSE; Start 02/20/17 at 09:00 Dextrose (D50w Syringe) 50 ml Q15M PRN IV DECREASED GLUCOSE; Start 02/20/17 at 09:00 Glucagon (Glucagen) 1 mg Q15M PRN IM DECREASED GLUCOSE; Start 02/20/17 at 09:00 Glucose (Glutose) 15 gm Q15M PRN BUCCAL DECREASED GLUCOSE; Start 02/20/17 at 09 :00 Enoxaparin Sodium (Lovenox) 30 mg BID SC Last administered on 02/25/17 08:14; Admin Dose 30 MG; Start 02/20/17 at 21:00 Miscellaneous Information This patient trujillo... PRN PRN XX WOUND CARE; Start 02/21 at 01:00 Vancomycin HCl (Vancocin) 250 ml @ 125 mls/hr Q8H IVPB Last administered on 05:21; Admin Dose 125 MLS/HR; Start 02/23/17 at 21:00 Levofloxacin (Levaquin) 750 mg DAILY@06 NGT Last administered on 02/25/17 05: 21; Admin Dose 750 MG; Start 02/25/17 at 06:00 Lactobacillus Acidophilus 1 each 1 each BID PO Last administered on 02/25/17 08:09; Admin Dose 1 EACH; Start 02/24/17 at 21:00 Potassium Chloride 250 ml @ 62.5 mls/hr Q4H IVPB ; Start 02/25/17 at 10:30; Stop 02/25/17 at 18:29 Magnesium Sulfate/ Sodium Chloride (Magnesium Sulfate/NS) 106 ml @ 35.333 mls/ hr ONCE IVPB ; Start 02/25/17 at 10:30; Stop 02/25/17 at 13:29 SALLY BOLANOS Feb 25, 2017 10:23
[2017-02-25] MEDS ORDERED: MAGNESIUM SULFATE 3 GM in SOD CHLORIDE 0.9% 100 ML IVPB SCH (10:30)
--- NOTE | 2017-02-25 13:25 | CONS ---
Date/Time of Note Date/Time of Note DATE: 02/25/17 TIME: 13:23 Assessment/Plan Assessment/Plan Chief Complaint/Hosp Course No acute events overnight. Patient is alert lying comfortably in bed, feels good Microbiology: Blood culture on February 20 growing gram-negative rods, wound culture growing Streptococcus Proteus mirabilis enterococcus species MRI of left foot revealed osteomyelitis involving the third middle and distal phalanges. MRI of the right foot revealed osteomyelitis of the first toe Antibiotics: Vancomycin, Levaquin Physical examination: Morbidly obese middle-aged man who is alert in no distress. Head atraumatic normocephalic sclera nonicteric. Neck is supple. Chest rise symmetrical breath sounds clear. Heart: S1-S2. Abdomen soft, bowel tones present. Extremities with bilateral lower extremity lymphedema edema and erythema. Assessment: 1. Bilateral lower extremity cellulitis with evidence of osteomyelitis per MRI and right big toe open wound 2. Bilateral lower extremities chronic lymphedema 3. Diabetes 4. Morbid obesity 5. Gram-negative sharon bacteremia likely secondary to #1 6. Status post sepsis Plan: Clinically stable, on appropriate antibiotics, blood culture results on February 20 grew gram-negative rods that showed up this morning, will repeat blood cultures today, continue antibiotics, local wound care as per podiatry and follow vascular recommendations. Anticipate discharge on oral Levaquin and IV vancomycin for 6-8 weeks Discussed with patient Discussed with Dr Bolanos Problems: Consultation Date/Type/Reason Admit Date/Time Feb 20, 2017 at 04:07 Initial Consult Date 02/21/17 Type of Consultation: ID Referring Provider: SALLY BOLANOS Exam/Review of Systems Vital Signs Vitals Vital Signs Date Time Temp Pulse Resp B/P Pulse Ox O2 Delivery O2 Flow Rate FiO2 02/25/17 12:26 90 02/25/17 11:31 97.8 18 123/77 95 Intake and Output 02/24/17 02/24/17 02/25/17 15:00 23:00 07:00 Intake Total 3170 ml 250 ml Output Total 2050 ml 900 ml Balance 1120 ml -650 ml Results Result Diagram: 02/25/17 0714 02/25/17 0714 Results 24 hrs Laboratory Tests Test 02/24/17 18:03 02/24/17 20:54 02/25/17 07:14 02/25/17 08:08 Bedside Glucose 93 94 144 White Blood Count 8.0 Red Blood Count 5.19 Hemoglobin 13.3 L Hematocrit 40.1 L Mean Corpuscular Volume 77.3 L Mean Corpuscular Hemoglobin 25.6 L Mean Corpuscular Hemoglobin Concent 33.2 Red Cell Distribution Width 13.7 Platelet Count 430 #H Mean Platelet Volume 9.8 Neutrophils % 71.1 Lymphocytes % 16.6 Monocytes % 8.4 Eosinophils % 1.6 Basophils % 0.4 Nucleated Red Blood Cells % 0.0 Neutrophils # 5.7 Lymphocytes # 1.3 Monocytes # 0.7 Eosinophils # 0.1 Basophils # 0.0 Nucleated Red Blood Cells # 0.0 Sodium Level 142 Potassium Level 3.0 L Chloride Level 97 Carbon Dioxide Level 33 H Anion Gap 15 Blood Urea Nitrogen 5 L Creatinine 0.69 Glucose Level 129 Calcium Level 8.6 Phosphorus Level 3.7 Magnesium Level 1.7 Test 02/25/17 12:28 Bedside Glucose 97 Medications Medications Current Medications Aspirin (Halfprin) 81 mg DAILY PO Last administered on 02/25/17 08:09; Admin Dose 81 MG; Start 02/20/17 at 09:00 Gabapentin (Neurontin) 600 mg BID PO Last administered on 02/25/17 08:10; Admin Dose 600 MG; Start 02/20/17 at 09:00 Insulin Glargine (Lantus) 20 unit BID@08,20 SC Last administered on 02/25/17 08:12; Admin Dose 20 UNIT; Start 02/20/17 at 08:30 Diagnostic Test (Pha) (Accu-Chek) 1 ea 02 XX ; Start 02/21/17 at 02:00 Ondansetron HCl (Zofran Inj) 4 mg Q6H PRN IV NAUSEA AND/OR VOMITING Last administered on 02/21/17 12:30; Admin Dose 4 MG; Start 02/20/17 at 08:30 Metoclopramide HCl (Reglan) 10 mg Q6H PRN IV NAUSEA AND/OR VOMITING Last administered on 02/20/17 15:56; Admin Dose 10 MG; Start 02/20/17 at 08:30 Acetaminophen (Tylenol Tab) 650 mg Q6H PRN PO PAIN LEVEL 1-3 OR FEVER; Start at 08:30 Acetaminophen/ Hydrocodone Bitart ([place] (5/325)) 1 tab Q6H PRN PO PAIN LEVEL 4 -6; Start 02/20/17 at 08:30 Acetaminophen/ Hydrocodone Bitart ([place] (5/325)) 2 tab Q6H PRN PO PAIN LEVEL 7 -10; Start 02/20/17 at 08:30 Morphine Sulfate (morphine) 2 mg Q4H PRN IV PAIN LEVEL 7-10; Start 02/20/17 at 08:30 Docusate Sodium (Colace) 100 mg Q12H PRN PO CONSTIPATION; Start 02/20/17 at 08: 30 Magnesium Hydroxide (Milk Of Mag) 30 ml DAILY PRN PO CONSTIPATION; Start at 08:30 Bisacodyl (Dulcolax Supp) 10 mg DAILY PRN [place] CONSTIPATION; Start 02/20/17 at 08 :30 Pantoprazole (Protonix Tab) 40 mg DAILY@06 PO Last administered on 02/25/17 05 :21; Admin Dose 40 MG; Start 02/21/17 at 06:00 Miscellaneous Information 1 ea NOTE XX ; Start 02/20/17 at 09:00 Glucose (Glutose) 15 gm Q15M PRN PO DECREASED GLUCOSE; Start 02/20/17 at 09:00 Glucose (Glutose) 22.5 gm Q15M PRN PO DECREASED GLUCOSE; Start 02/20/17 at 09: 00 Dextrose (D50w Syringe) 25 ml Q15M PRN IV DECREASED GLUCOSE; Start 02/20/17 at 09:00 Dextrose (D50w Syringe) 50 ml Q15M PRN IV DECREASED GLUCOSE; Start 02/20/17 at 09:00 Glucagon (Glucagen) 1 mg Q15M PRN IM DECREASED GLUCOSE; Start 02/20/17 at 09:00 Glucose (Glutose) 15 gm Q15M PRN BUCCAL DECREASED GLUCOSE; Start 02/20/17 at 09 :00 Enoxaparin Sodium (Lovenox) 30 mg BID SC Last administered on 02/25/17 08:14; Admin Dose 30 MG; Start 02/20/17 at 21:00 Miscellaneous Information This patient trujillo... PRN PRN XX WOUND CARE; Start 02/21 at 01:00 Vancomycin HCl (Vancocin) 250 ml @ 125 mls/hr Q8H IVPB Last administered on 12:30; Admin Dose 125 MLS/HR; Start 02/23/17 at 21:00 Levofloxacin (Levaquin) 750 mg DAILY@06 NGT Last administered on 02/25/17 05: 21; Admin Dose 750 MG; Start 02/25/17 at 06:00 Lactobacillus Acidophilus 1 each 1 each BID PO Last administered on 02/25/17 08:09; Admin Dose 1 EACH; Start 02/24/17 at 21:00 Potassium Chloride 250 ml @ 62.5 mls/hr Q4H IVPB ; Start 02/25/17 at 10:30; Stop 02/25/17 at 18:29 Magnesium Sulfate/ Sodium Chloride (Magnesium Sulfate/NS) 106 ml @ 35.333 mls/ hr ONCE IVPB Last administered on 02/25/17 10:44; Admin Dose 35.333 MLS/HR; Start 02/25/17 at 10:30; Stop 02/25/17 at 13:29 BERNARDO LEW NP Feb 25, 2017 13:25
[2017-02-25] MEDS: POTASSIUM CHLORIDE 250 ML IVPB SCH ×2 (14:16→18:48)
[2017-02-26] VITALS (13 sets, daily range): BP systolic 122–139; BP diastolic 70–84; PULSE 69–88; RESP 16–20
[2017-02-26] MEDS: ACCU-CHEK XX SCH (02:00)
[2017-02-26 04:53] LABS: ADD SCAN DIFF NO
[2017-02-26 04:54] LABS: BASOPHILS % 0.5 % (0.0-2.0); EOSINOPHILS # 0.1 10^3/ul (0.0-0.5); EOSINOPHILS % 1.3 % (0.0-7.0); HEMATOCRIT 33.7 % (42.0-52.0); HEMOGLOBIN 11.5 g/dl (14.0-18.0); LYMPHOCYTES # 1.5 10^3/ul (0.8-2.9); LYMPHOCYTES % 19.6 % (15.0-51.0); MEAN CORPUSCULAR HEMOGLOBIN 26.2 pg (29.0-33.0); MEAN CORPUSCULAR HGB CONC 34.1 g/dl (32.0-37.0); MEAN CORPUSCULAR VOLUME 76.8 fl (82.0-101.0); MONOCYTE # 0.7 10^3/ul (0.3-0.9); MONOCYTES % 8.9 % (0.0-11.0); NEUTROPHILS % 66.9 % (39.0-77.0); PLATELET COUNT 362 10^3/UL (140-415); RED BLOOD COUNT 4.39 10^6/ul (4.70-6.10); RED CELL DISTRIBUTION WIDTH 13.5 % (11.5-14.5); WHITE BLOOD COUNT 7.4 10^3/ul (4.8-10.8)
[2017-02-26 05:16] LABS: MAGNESIUM 1.8 mg/dl (1.7-2.5); PHOSPHORUS 3.4 mg/dl (2.5-4.9)
[2017-02-26 05:17] LABS: CALCIUM 7.7 mg/dl (8.4-10.2); CREATININE 0.7 mg/dl (0.61-1.24); POTASSIUM 3.5 mmol/L (3.5-5.1)
[2017-02-26] MEDS: PANTOPRAZOLE (EC) 40 MG TAB PO SCH (05:30)
[2017-02-26] MEDS: LEVOFLOXACIN 750 MG TABLET NGT SCH (05:30)
[2017-02-26] MEDS: VANCOMYCIN 1 GM in NS 250 ML IVPB SCH (06:12)
[2017-02-26] MEDS: INSULIN ASPART [NOVOLOG] 3 ML PEN SC SCH ×7 (07:46→21:00)
[2017-02-26] MEDS: METOCLOPRAMIDE 10 MG INJ IV SCH ×4 (07:48→20:33)
[2017-02-26] MEDS: INSULIN GLARGINE [LANtus] 3 ML PEN SC SCH ×2 (07:48→20:35)
[2017-02-26] MEDS: GABAPENTIN 300 MG CAP PO SCH ×2 (09:30→20:31)
[2017-02-26] MEDS: ASPIRIN (EC) 81 MG TAB PO SCH (09:30)
[2017-02-26] MEDS: ENOXAPARIN 30 MG/0.3 ML SYG SC SCH (09:35)
[2017-02-26] MEDS: L ACIDOPHIL/B LACTIS/B LONGUM CAPSULE PO SCH ×2 (09:38→20:32)
--- NOTE | 2017-02-26 12:39 | PN ---
Date/Time of Note Date/Time of Note DATE: 02/26/17 TIME: 12:38 Assessment/Plan VTE Prophylaxis VTE Prophylaxis Intervention: LMWH Lines/Catheters IV Catheter Type (from Nrsg): PICC Line Central line still needed: Yes (IV antibiotics, IV access) Urinary Cath still in place: No Assessment/Plan Assessment/Plan 47-year-old male: 1. Bilateral lower extremity cellulitis, acute on chronic, left lower extremity infection more acute than the right, but also likely with right big toe osteomyelitis. ESR and CRP elevated. MRI actually confirmed osteomyelitis of toes on both feet. Admission blood cultures 1 out of 2 positive with gram- negative rods, bacillus species. Status post PICC line placement. Repeat blood cultures pending Appreciate podiatry recommendation, Dr. Knott had a thorough discussion with patient and his family and patient will be scheduled for a surgical debridement and possible amputation of some of the toes in the next 24 hours hopefully. Continue Vanco and Levaquin for now, appreciate infectious disease and vascular surgery recommendation. Per infectious disease continue current antibiotics, per vascular surgery patient is a vasculopath but no emergent surgeries, more important to control infection and wound. 2. Sepsis likely secondary to cellulitis and diabetic wound with osteomyelitis of a few toes bilaterally. Patient better clinically Continue vancomycin and Levaquin. Appreciate ID recommendations. 3. Diabetes mellitus, uncontrolled. A1c 12.2. BG now well controlled. ADA diet Continue current insulin regimen. Tolerating po Diabetic education ordered. 4. Diabetic gastroparesis: Symptoms much better controlled with Reglan before meals and at bedtime. Continue Zofran prn. 5. Bilateral lower extremity edema most likely consistent with lymphedema and poor venous return, also with ongoing infection, much improved. Treat underlying infection, Lasix as needed. 6. Hypokalemia: Improved, still repleting K and mag today. 7. Sinus tachycardia: Resolved CT angiogram of the chest negative for PE, EKG just showing sinus tachycardia yesterday no acute changes. 2D echocardiogram within normal limits From the medical standpoint , patient okay to proceed with surgical amputation of some of his toes if still recommended by podiatry. 8. Morbid obesity: Lifestyle modification Prophylaxis: Lovenox for DVT prophylaxis, Protonix for GI prophylaxis Disposition: Awaiting surgical intervention by podiatry, replete electrolytes. Appreciate ID recommendations regarding positive blood cultures, repeat blood cultures pending Subjective 24 Hr Interval Summary Free Text/Dictation Patient remained stable, no complaints this morning, tolerating p.o. Awaiting surgical intervention Exam/Review of Systems Vital Signs Vitals Vital Signs Date Time Temp Pulse Resp B/P Pulse Ox O2 Delivery O2 Flow Rate FiO2 02/26/17 12:13 77 02/26/17 12:07 97.4 16 135/76 96 Intake and Output 02/25/17 02/25/17 02/26/17 15:00 23:00 07:00 Intake Total 850 ml 240 ml Output Total 1800 ml Balance 850 ml -1560 ml Exam Constitutional: alert, obese, oriented, well developed Respiratory: clear to auscultation, normal air movement Cardiovascular: nl pulses, regular rate and rhythm Gastrointestinal: non-tender, soft Extremities: normal pulses, other (Improved bilateral lower extremity edema, no clubbing or cyanosis. 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, nl mental status, nl speech, nl strength Results Result Diagram: 02/26/17 0428 02/26/17 0428 Results 24 hrs Laboratory Tests Test 02/25/17 17:44 02/25/17 20:45 02/26/17 04:28 02/26/17 07:43 Bedside Glucose 122 89 90 White Blood Count 7.4 Red Blood Count 4.39 L Hemoglobin 11.5 L Hematocrit 33.7 L Mean Corpuscular Volume 76.8 L Mean Corpuscular Hemoglobin 26.2 L Mean Corpuscular Hemoglobin Concent 34.1 Red Cell Distribution Width 13.5 Platelet Count 362 Mean Platelet Volume 10.0 Neutrophils % 66.9 Lymphocytes % 19.6 Monocytes % 8.9 Eosinophils % 1.3 Basophils % 0.5 Nucleated Red Blood Cells % 0.0 Neutrophils # 5.0 Lymphocytes # 1.5 Monocytes # 0.7 Eosinophils # 0.1 Basophils # 0.0 Nucleated Red Blood Cells # 0.0 Sodium Level 143 Potassium Level 3.5 Chloride Level 105 Carbon Dioxide Level 28 Anion Gap 14 Blood Urea Nitrogen 4 L Creatinine 0.70 Glucose Level 100 Calcium Level 7.7 L Phosphorus Level 3.4 Magnesium Level 1.8 Vancomycin Level Trough 10.3 Test 02/26/17 12:12 Bedside Glucose 122 Medications Medications Current Medications Aspirin (Halfprin) 81 mg DAILY PO Last administered on 02/26/17t 09:30; Admin Dose 81 MG; Start 02/20/17 at 09:00 Gabapentin (Neurontin) 600 mg BID PO Last administered on 02/26/17 09:30; Admin Dose 600 MG; Start 02/20/17 at 09:00 Insulin Glargine (Lantus) 20 unit BID@08,20 SC Last administered on 02/26/17 07:48; Admin Dose 20 UNIT; Start 02/20/17 at 08:30 Diagnostic Test (Pha) (Accu-Chek) 1 ea 02 XX ; Start 02/21/17 at 02:00 Ondansetron HCl (Zofran Inj) 4 mg Q6H PRN IV NAUSEA AND/OR VOMITING Last administered on 02/21/17 12:30; Admin Dose 4 MG; Start 02/20/17 at 08:30 Metoclopramide HCl (Reglan) 10 mg Q6H PRN IV NAUSEA AND/OR VOMITING Last administered on 02/20/17 15:56; Admin Dose 10 MG; Start 02/20/17 at 08:30 Acetaminophen (Tylenol Tab) 650 mg Q6H PRN PO PAIN LEVEL 1-3 OR FEVER; Start at 08:30 Acetaminophen/ Hydrocodone Bitart ([place] (5/325)) 1 tab Q6H PRN PO PAIN LEVEL 4 -6; Start 02/20/17 at 08:30 Acetaminophen/ Hydrocodone Bitart ([place] (5/325)) 2 tab Q6H PRN PO PAIN LEVEL 7 -10; Start 02/20/17 at 08:30 Morphine Sulfate (morphine) 2 mg Q4H PRN IV PAIN LEVEL 7-10; Start 02/20/17 at 08:30 Docusate Sodium (Colace) 100 mg Q12H PRN PO CONSTIPATION; Start 02/20/17 at 08: 30 Magnesium Hydroxide (Milk Of Mag) 30 ml DAILY PRN PO CONSTIPATION; Start at 08:30 Bisacodyl (Dulcolax Supp) 10 mg DAILY PRN [place] CONSTIPATION; Start 02/20/17 at 08 :30 Pantoprazole (Protonix Tab) 40 mg DAILY@06 PO Last administered on 02/26/17 05 :30; Admin Dose 40 MG; Start 02/21/17 at 06:00 Miscellaneous Information 1 ea NOTE XX ; Start 02/20/17 at 09:00 Glucose (Glutose) 15 gm Q15M PRN PO DECREASED GLUCOSE; Start 02/20/17 at 09:00 Glucose (Glutose) 22.5 gm Q15M PRN PO DECREASED GLUCOSE; Start 02/20/17 at 09: 00 Dextrose (D50w Syringe) 25 ml Q15M PRN IV DECREASED GLUCOSE; Start 02/20/17 at 09:00 Dextrose (D50w Syringe) 50 ml Q15M PRN IV DECREASED GLUCOSE; Start 02/20/17 at 09:00 Glucagon (Glucagen) 1 mg Q15M PRN IM DECREASED GLUCOSE; Start 02/20/17 at 09:00 Glucose (Glutose) 15 gm Q15M PRN BUCCAL DECREASED GLUCOSE; Start 02/20/17 at 09 :00 Enoxaparin Sodium (Lovenox) 30 mg BID SC Last administered on 02/26/17 09:35; Admin Dose 30 MG; Start 02/20/17 at 21:00 Misc[facility] Information [facility] This patient trujillo... PRN PRN XX WOUND CARE; Start 02/21/17 at 01:00 Levofloxacin (Levaquin) 750 mg DAILY@06 NGT Last administered on 02/26/17 05: 30; Admin Dose 750 MG; Start 02/25/17 at 06:00 Lactobacillus Acidophilus 1 each 1 each BID PO Last administered on 02/26/17 09:38; Admin Dose 1 EACH; Start 02/24/17 at 21:00 Vancomycin HCl/ Sodium Chloride (Vancocin/NS) 250 ml @ 83.333 mls/ hr Q8H IVPB ; Start 02/26/17 at 14:00 Miscellaneous Information (*Rx Drug Level Order Reminder*) ONCE ONCE XX ; Start 02/27/17 at 13:00; Stop 02/27/17 at 13:01 SALLY BOLANOS Feb 26, 2017 12:39
[2017-02-26] MEDS ORDERED: POTASSIUM CHLORIDE (SR) 20 MEQ TAB PO STA (12:43)
[2017-02-26] MEDS ORDERED: MAGNESIUM SULFATE 2 GM/50 ML 50 ML IVPB ONE (13:00)
[2017-02-26] MEDS: VANCOMYCIN 1.25 GM in SOD CHLORIDE 0.9% 250 ML IVPB SCH ×2 (14:50→22:28)
--- NOTE | 2017-02-26 15:21 | CONS ---
Date/Time of Note Date/Time of Note DATE: 02/26/17 TIME: 15:20 Assessment/Plan Assessment/Plan Chief Complaint/Hosp Course No acute events overnight. Patient is alert lying comfortably in bed, feels good Microbiology: Blood culture on February 20 growing bacillus species, wound culture growing Streptococcus Proteus mirabilis enterococcus species MRI of left foot revealed osteomyelitis involving the third middle and distal phalanges. MRI of the right foot revealed osteomyelitis of the first toe Antibiotics: Vancomycin, Levaquin Physical examination: Morbidly obese middle-aged man who is alert in no distress. Head atraumatic normocephalic sclera nonicteric. Neck is supple. Chest rise symmetrical breath sounds clear. Heart: S1-S2. Abdomen soft, bowel tones present. Extremities with bilateral lower extremity lymphedema edema and erythema. Assessment: 1. Bilateral lower extremity cellulitis with evidence of osteomyelitis per MRI and right big toe open wound 2. Bilateral lower extremities chronic lymphedema 3. Diabetes 4. Morbid obesity 5. Bacteremia consistent with contaminant 6. Status post sepsis Plan: Clinically stable, on appropriate antibiotics, repeat blood cultures preliminary negative, continue antibiotics, local wound care as per podiatry and follow vascular recommendations. Anticipate discharge on oral Levaquin and IV vancomycin for 6-8 weeks Discussed with patient Discussed with Dr Bolanos Problems: Consultation Date/Type/Reason Admit Date/Time Feb 20, 2017 at 04:07 Initial Consult Date 02/21/17 Type of Consultation: ID Referring Provider: SALLY BOLANOS Exam/Review of Systems Vital Signs Vitals Vital Signs Date Time Temp Pulse Resp B/P Pulse Ox O2 Delivery O2 Flow Rate FiO2 02/26/17 12:13 77 02/26/17 12:07 97.4 16 135/76 96 Intake and Output 02/25/17 02/25/17 02/26/17 14:59 22:59 06:59 Intake Total 600 ml 490 ml Output Total 1800 ml Balance 600 ml -1310 ml Results Result Diagram: 02/26/17 0428 02/26/17 0428 Results 24 hrs Laboratory Tests Test 02/25/17 17:44 02/25/17 20:45 02/26/17 04:28 02/26/17 07:43 Bedside Glucose 122 89 90 White Blood Count 7.4 Red Blood Count 4.39 L Hemoglobin 11.5 L Hematocrit 33.7 L Mean Corpuscular Volume 76.8 L Mean Corpuscular Hemoglobin 26.2 L Mean Corpuscular Hemoglobin Concent 34.1 Red Cell Distribution Width 13.5 Platelet Count 362 Mean Platelet Volume 10.0 Neutrophils % 66.9 Lymphocytes % 19.6 Monocytes % 8.9 Eosinophils % 1.3 Basophils % 0.5 Nucleated Red Blood Cells % 0.0 Neutrophils # 5.0 Lymphocytes # 1.5 Monocytes # 0.7 Eosinophils # 0.1 Basophils # 0.0 Nucleated Red Blood Cells # 0.0 Sodium Level 143 Potassium Level 3.5 Chloride Level 105 Carbon Dioxide Level 28 Anion Gap 14 Blood Urea Nitrogen 4 L Creatinine 0.70 Glucose Level 100 Calcium Level 7.7 L Phosphorus Level 3.4 Magnesium Level 1.8 Vancomycin Level Trough 10.3 Test 02/26/17 12:12 Bedside Glucose 122 Medications Medications Current Medications Aspirin (Halfprin) 81 mg DAILY PO Last administered on 02/26/17 09:30; Admin Dose 81 MG; Start 02/20/17 at 09:00 Gabapentin (Neurontin) 600 mg BID PO Last administered on 02/26/17 09:30; Admin Dose 600 MG; Start 02/20/17 at 09:00 Insulin Glargine (Lantus) 20 unit BID@08,20 SC Last administered on 02/26/17 07:48; Admin Dose 20 UNIT; Start 02/20/17 at 08:30 Diagnostic Test (Pha) (Accu-Chek) 1 ea 02 XX ; Start 02/21/17 at 02:00 Ondansetron HCl (Zofran Inj) 4 mg Q6H PRN IV NAUSEA AND/OR VOMITING Last administered on 02/21/17 12:30; Admin Dose 4 MG; Start 02/20/17 at 08:30 Metoclopramide HCl (Reglan) 10 mg Q6H PRN IV NAUSEA AND/OR VOMITING Last administered on 02/20/17 15:56; Admin Dose 10 MG; Start 02/20/17 at 08:30 Acetaminophen (Tylenol Tab) 650 mg Q6H PRN PO PAIN LEVEL 1-3 OR FEVER; Start at 08:30 Acetaminophen/ Hydrocodone Bitart ([place] (5/325)) 1 tab Q6H PRN PO PAIN LEVEL 4 -6; Start 02/20/17 at 08:30 Acetaminophen/ Hydrocodone Bitart ([place] (5/325)) 2 tab Q6H PRN PO PAIN LEVEL 7 -10; Start 02/20/17 at 08:30 Morphine Sulfate (morphine) 2 mg Q4H PRN IV PAIN LEVEL 7-10; Start 02/20/17 at 08:30 Docusate Sodium (Colace) 100 mg Q12H PRN PO CONSTIPATION; Start 02/20/17 at 08: 30 Magnesium Hydroxide (Milk Of Mag) 30 ml DAILY PRN PO CONSTIPATION; Start at 08:30 Bisacodyl (Dulcolax Supp) 10 mg DAILY PRN [place] CONSTIPATION; Start 02/20/17 at 08 :30 Pantoprazole (Protonix Tab) 40 mg DAILY@06 PO Last administered on 02/26/17 05 :30; Admin Dose 40 MG; Start 02/21/17 at 06:00 Miscellaneous Information 1 ea NOTE XX ; Start 02/20/17 at 09:00 Glucose (Glutose) 15 gm Q15M PRN PO DECREASED GLUCOSE; Start 02/20/17 at 09:00 Glucose (Glutose) 22.5 gm Q15M PRN PO DECREASED GLUCOSE; Start 02/20/17 at 09: 00 Dextrose (D50w Syringe) 25 ml Q15M PRN IV DECREASED GLUCOSE; Start 02/20/17 at 09:00 Dextrose (D50w Syringe) 50 ml Q15M PRN IV DECREASED GLUCOSE; Start 02/20/17 at 09:00 Glucagon (Glucagen) 1 mg Q15M PRN IM DECREASED GLUCOSE; Start 02/20/17 at 09:00 Glucose (Glutose) 15 gm Q15M PRN BUCCAL DECREASED GLUCOSE; Start 02/20/17 at 09 :00 Enoxaparin Sodium (Lovenox) 30 mg BID SC Last administered on 02/26/17 09:35; Admin Dose 30 MG; Start 02/20/17 at 21:00 Miscellaneous Information (Pending [facility] Order For Wound Care) This patient trujillo... PRN PRN XX WOUND CARE; Start 02/21/17 at 01:00 Levofloxacin (Levaquin) 750 mg DAILY@06 NGT Last administered on 02/26/17 05: 30; Admin Dose 750 MG; Start 02/25/17 at 06:00 Lactobacillus Acidophilus 1 each 1 each BID PO Last administered on 02/26/17 09:38; Admin Dose 1 EACH; Start 02/24/17 at 21:00 Vancomycin HCl/ Sodium Chloride (Vancocin/NS) 250 ml @ 83.333 mls/ hr Q8H IVPB Last administered on 02/26/17 14:50; Admin Dose 83.333 MLS/HR; Start at 14:00 Miscellaneous Information (*Rx Drug Level Order Reminder*) ONCE ONCE XX ; Start 02/27/17 at 13:00; Stop 02/27/17 at 13:01 BERNARDO LEW NP Feb 26, 2017 15:21
--- NOTE | 2017-02-26 23:14 | PN ---
Date/Time of Note Date/Time of Note DATE: 02/26/17 TIME: 23:12 Assessment/Plan Lines/Catheters IV C[facility] Type (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 Preop orders were written. Patient's surgery scheduled for 5 PM tomorrow. Patient will be followed in-house. Remain nonweightbearing on both feet. Subjective 24 Hr Interval Summary Patient was seen at bedside. Patient is in no acute distress. Patient reports no new adverse events. Patient denies fever, chills, nausea or vomiting. Patient denies pain. Patient denies recent trauma. Patient reports bandages are being changed as directed. Patient does not report any new problems. Constitutional: no complaints Pain Control: well controlled Exam/Review of Systems Vital Signs Vitals Vital Signs Date Time Temp Pulse Resp B/P Pulse Ox O2 Delivery O2 Flow Rate FiO2 02/26/17 20:17 88 02/26/17 20:05 97.5 20 136/81 94 02/26/17 18:30 Room Air Intake and Output 02/25/17 02/25/17 02/26/17 14:59 22:59 06:59 Intake Total 600 ml 490 ml Output Total 1800 ml Balance 600 ml -1310 ml Exam Free Text/Dictation Morbidly obese male in no acute distress. Open wound right hallux unchanged since last visit. Edema continues. Malodor present. Left third toe edema continues with discoloration. No major changes noted. Labs reviewed. Results Result Diagram: 02/26/17 0428 02/26/17 0428 BOOGIE GRIFFIN DPM Feb 26, 2017 23:14
[2017-02-26] MEDS: SOD CHLORIDE 0.9% 1,000 ML IV SCH (23:22)
[2017-02-27] VITALS (25 sets, daily range): BP systolic 108–182; BP diastolic 56–118; PULSE 72–91; RESP 16–21
[2017-02-27] MEDS: ACCU-CHEK XX SCH (02:00)
[2017-02-27] MEDS: VANCOMYCIN 1.25 GM in SOD CHLORIDE 0.9% 250 ML IVPB SCH ×3 (05:41→22:14)
[2017-02-27] MEDS: LEVOFLOXACIN 750 MG TABLET NGT SCH (05:44)
[2017-02-27] MEDS: PANTOPRAZOLE (EC) 40 MG TAB PO SCH (05:44)
[2017-02-27] MEDS: INSULIN ASPART [NOVOLOG] 3 ML PEN SC SCH ×7 (07:52→20:48)
[2017-02-27] MEDS: METOCLOPRAMIDE 10 MG INJ IV SCH ×4 (07:52→20:48)
[2017-02-27] MEDS: INSULIN GLARGINE [LANtus] 3 ML PEN SC SCH ×2 (07:58→20:00)
[2017-02-27] MEDS: L ACIDOPHIL/B LACTIS/B LONGUM CAPSULE PO SCH ×2 (07:59→20:48)
[2017-02-27] MEDS: GABAPENTIN 300 MG CAP PO SCH ×2 (07:59→20:48)
[2017-02-27] MEDS: ASPIRIN (EC) 81 MG TAB PO SCH (07:59)
[2017-02-27] MEDS: SOD CHLORIDE 0.9% 1,000 ML IV SCH ×2 (08:30→18:30)
[2017-02-27 08:40] LABS: ADD SCAN DIFF NO
[2017-02-27 08:47] LABS: BASOPHILS % 0.4 % (0.0-2.0); EOSINOPHILS # 0.2 10^3/ul (0.0-0.5); EOSINOPHILS % 2.2 % (0.0-7.0); HEMATOCRIT 35.7 % (42.0-52.0); HEMOGLOBIN 11.9 g/dl (14.0-18.0); LYMPHOCYTES # 1.4 10^3/ul (0.8-2.9); LYMPHOCYTES % 17.8 % (15.0-51.0); MEAN CORPUSCULAR HEMOGLOBIN 25.8 pg (29.0-33.0); MEAN CORPUSCULAR HGB CONC 33.3 g/dl (32.0-37.0); MEAN CORPUSCULAR VOLUME 77.3 fl (82.0-101.0); MEAN PLATELET VOLUME 9.8 fl (7.4-10.4); MONOCYTE # 0.6 10^3/ul (0.3-0.9); MONOCYTES % 7.6 % (0.0-11.0); NEUTROPHIL # 5.6 10^3/ul (1.6-7.5); NEUTROPHILS % 70.5 % (39.0-77.0); PLATELET COUNT 390 10^3/UL (140-415); RED BLOOD COUNT 4.62 10^6/ul (4.70-6.10); RED CELL DISTRIBUTION WIDTH 13.9 % (11.5-14.5); WHITE BLOOD COUNT 7.9 10^3/ul (4.8-10.8)
[2017-02-27 09:11] LABS: CALCIUM 7.9 mg/dl (8.4-10.2); CREATININE 0.7 mg/dl (0.61-1.24); POTASSIUM 4.4 mmol/L (3.5-5.1)
--- NOTE | 2017-02-27 10:41 | PN ---
Date/Time of Note Date/Time of Note DATE: 02/27/17 TIME: 10:35 Assessment/Plan VTE Prophylaxis VTE Prophylaxis Intervention: LMWH Lines/Catheters IV Catheter Type (from Nrsg): PICC Line Central line still needed: Yes (IV antibiotic) Urinary Cath still in place: No Assessment/Plan Assessment/Plan 47-year-old male: 1. Bilateral lower extremity cellulitis, acute on chronic, left lower extremity infection more acute than the right, but also likely with right big toe osteomyelitis. ESR and CRP elevated. MRI actually confirmed osteomyelitis of toes on both feet. Admission blood cultures 1 out of 2 positive with gram- negative rods, bacillus species pansensitive, repeat blood cultures NGTD. Status post PICC line placement. Repeat blood cultures pending Appreciate podiatry recommendation, Dr. Knott had a thorough discussion with patient and his family and patient scheduled for a surgical debridement and possible amputation of some of the toes today at 5 PM today. Continue Vanco and Levaquin for now, appreciate infectious disease and vascular surgery recommendation. Per infectious disease continue current antibiotics, per vascular surgery patient is a vasculopath but no emergent surgeries, more important to control infection and wound. 2. Sepsis likely secondary to cellulitis and diabetic wound with osteomyelitis of a few toes bilaterally. Patient better clinically Continue vancomycin and Levaquin. Appreciate ID recommendations. Surgical debridement possible amputation of toes today 3. Diabetes mellitus, uncontrolled. A1c 12.2. BG now well controlled. ADA diet Continue current insulin regimen. Tolerating po family living educator following. 4. Diabetic gastroparesis: Symptoms much better controlled with Reglan before meals and at bedtime. Continue Zofran prn. 5. Bilateral lower extremity edema most likely consistent with lymphedema and poor venous return, also with ongoing infection, much improved. Treat underlying infection, Lasix as needed. 6. Hypokalemia: Resolved with K and mag within normal. 7. Sinus tachycardia: Resolved CT angiogram of the chest negative for PE, EKG just showing sinus tachycardia yesterday no acute changes. 2D echocardiogram within normal limits From the medical standpoint , patient okay to proceed with surgical amputation of some of his toes if still recommended by podiatry. 8. Morbid obesity: Lifestyle modification Prophylaxis: Lovenox for DVT prophylaxis, Protonix for GI prophylaxis Disposition: Awaiting surgical intervention by podiatry today. Appreciate ID recommendations regarding positive blood cultures, repeat blood cultures no growth to date Subjective 24 Hr Interval Summary Free Text/Dictation Patient doing well this morning, he is n.p.o., electrolytes are stable, surgery scheduled at 5 PM today Exam/Review of Systems Vital Signs Vitals Vital Signs Date Time Temp Pulse Resp B/P Pulse Ox O2 Delivery O2 Flow Rate FiO2 02/27/17 08:19 98.6 78 18 147/93 96 02/26/17 18:30 Room Air Intake and Output 02/26/17 02/26/17 02/27/17 15:00 23:00 07:00 Intake Total 1600 ml 1050 ml Output Total 1400 ml Balance 1600 ml -350 ml Exam Constitutional: alert, obese, oriented, well developed Respiratory: clear to auscultation, normal air movement Cardiovascular: nl pulses, regular rate and rhythm Gastrointestinal: non-tender, soft Musculoskeletal: other (Bilateral dressing in place on feet with drainage) Extremities: normal pulses, other (No edema, clubbing, cyanosis) Neurological: INSPECTOR HAIRSPRING TRUING II-XII intact, nl mental status, nl speech, nl strength Results Result Diagram: 02/27/17 0753 02/27/17 0753 Results 24 hrs Laboratory Tests Test 02/26/17 12:12 02/26/17 17:29 02/26/17 20:30 02/27/17 07:50 Bedside Glucose 122 88 141 120 Test 02/27/17 07:53 White Blood Count 7.9 Red Blood Count 4.62 L Hemoglobin 11.9 L Hematocrit 35.7 L Mean Corpuscular Volume 77.3 L Mean Corpuscular Hemoglobin 25.8 L Mean Corpuscular Hemoglobin Concent 33.3 Red Cell Distribution Width 13.9 Platelet Count 390 Mean Platelet Volume 9.8 Neutrophils % 70.5 Lymphocytes % 17.8 Monocytes % 7.6 Eosinophils % 2.2 Basophils % 0.4 Neutrophils # 5.6 Lymphocytes # 1.4 Monocytes # 0.6 Eosinophils # 0.2 Basophils # 0.0 Nucleated Red Blood Cells # 0.0 Sodium Level 142 Potassium Level 4.4 Chloride Level 103 Carbon Dioxide Level 29 Anion Gap 14 Blood Urea Nitrogen 8 Creatinine 0.70 Glucose Level 112 Calcium Level 7.9 L Magnesium Level 2.0 Medications Medications Current Medications Aspirin (Halfprin) 81 mg DAILY PO Last administered on 02/26/17t 09:30; Admin Dose 81 MG; Start 02/20/17 at 09:00 Gabapentin (Neurontin) 600 mg BID PO Last administered on 02/26/17 20:31; Admin Dose 600 MG; Start 02/20/17 at 09:00 Insulin Glargine (Lantus) 20 unit BID@08,20 SC Last administered on 02/27/17 07:58; Admin Dose 20 UNIT; Start 02/20/17 at 08:30 Diagnostic Test (Pha) (Accu-Chek) 1 ea 02 XX ; Start 02/21/17 at 02:00 Ondansetron HCl (Zofran Inj) 4 mg Q6H PRN IV NAUSEA AND/OR VOMITING Last administered on 02/21/17 12:30; Admin Dose 4 MG; Start 02/20/17 at 08:30 Metoclopramide HCl (Reglan) 10 mg Q6H PRN IV NAUSEA AND/OR VOMITING Last administered on 02/20/17 15:56; Admin Dose 10 MG; Start 02/20/17 at 08:30 Acetaminophen (Tylenol Tab) 650 mg Q6H PRN PO PAIN LEVEL 1-3 OR FEVER; Start at 08:30 Acetaminophen/ Hydrocodone Bitart ([place] (5/325)) 1 tab Q6H PRN PO PAIN LEVEL 4 -6; Start 02/20/17 at 08:30 Acetaminophen/ Hydrocodone Bitart ([place] (5/325)) 2 tab Q6H PRN PO PAIN LEVEL 7 -10; Start 02/20/17 at 08:30 Morphine Sulfate (morphine) 2 mg Q4H PRN IV PAIN LEVEL 7-10; Start 02/20/17 at 08:30 Docusate Sodium (Colace) 100 mg Q12H PRN PO CONSTIPATION; Start 02/20/17 at 08: 30 Magnesium Hydroxide (Milk Of Mag) 30 ml DAILY PRN PO CONSTIPATION; Start at 08:30 Bisacodyl (Dulcolax Supp) 10 mg DAILY PRN [place] CONSTIPATION; Start 02/20/17 at 08 :30 Pantoprazole (Protonix Tab) 40 mg DAILY@06 PO Last administered on 02/26/17 05 :30; Admin Dose 40 MG; Start 02/21/17 at 06:00 Miscellaneous Information 1 ea NOTE XX ; Start 02/20/17 at 09:00 Glucose (Glutose) 15 gm Q15M PRN PO DECREASED GLUCOSE; Start 02/20/17 at 09:00 Glucose (Glutose) 22.5 gm Q15M PRN PO DECREASED GLUCOSE; Start 02/20/17 at 09: 00 Dextrose (D50w Syringe) 25 ml Q15M PRN IV DECREASED GLUCOSE; Start 02/20/17 at 09:00 Dextrose (D50w Syringe) 50 ml Q15M PRN IV DECREASED GLUCOSE; Start 02/20/17 at 09:00 Glucagon (Glucagen) 1 mg Q15M PRN IM DECREASED GLUCOSE; Start 02/20/17 at 09:00 Glucose (Glutose) 15 gm Q15M PRN BUCCAL DECREASED GLUCOSE; Start 02/20/17 at 09 :00 Enoxaparin Sodium (Lovenox) 30 mg BID SC Last administered on 02/26/17 09:35; Admin Dose 30 MG; Start 02/20/17 at 21:00; Status Future Hold Miscellaneous Information (Pending [facility] Order For Wound Care) This patient trujillo... PRN PRN XX WOUND CARE; Start 02/21/17 at 01:00 Levofloxacin (Levaquin) 750 mg DAILY@06 NGT Last administered on 02/26/17 05: 30; Admin Dose 750 MG; Start 02/25/17 at 06:00 Lactobacillus Acidophilus 1 each 1 each BID PO Last administered on 02/26/17 20:32; Admin Dose 1 EACH; Start 02/24/17 at 21:00 Vancomycin HCl/ Sodium Chloride (Vancocin/NS) 250 ml @ 83.333 mls/ hr Q8H IVPB Last administered on 02/27/17 05:41; Admin Dose 83.333 MLS/HR; Start at 14:00 Miscellaneous Information ONCE ONCE XX ; Start 02/27/17 at 13:00; Stop at 13:01 Sodium Chloride (NS) 1,000 ml @ 100 mls/hr Q10H IV Last administered on 23:22; Admin Dose 100 MLS/HR; Start 02/26/17 at 22:30 SALLY BOLANOS Feb 27, 2017 10:41
--- NOTE | 2017-02-27 15:26 | CONS ---
Date/Time of Note Date/Time of Note DATE: 02/27/17 TIME: 15:25 Assessment/Plan Assessment/Plan Chief Complaint/Hosp Course No acute events overnight. Patient is alert lying comfortably in bed, feels good Microbiology: Blood culture on February 20 growing bacillus species, wound culture growing Streptococcus Proteus mirabilis enterococcus species MRI of left foot revealed osteomyelitis involving the third middle and distal phalanges. MRI of the right foot revealed osteomyelitis of the first toe Antibiotics: Vancomycin, Levaquin Physical examination: Morbidly obese middle-aged man who is alert in no distress. Head atraumatic normocephalic sclera nonicteric. Neck is supple. Chest rise symmetrical breath sounds clear. Heart: S1-S2. Abdomen soft, bowel tones present. Extremities with bilateral lower extremity lymphedema edema and erythema. Assessment: 1. Bilateral lower extremity cellulitis with evidence of osteomyelitis per MRI and right big toe open wound 2. Bilateral lower extremities chronic lymphedema 3. Diabetes 4. Morbid obesity 5. Bacteremia consistent with contaminant 6. Status post sepsis Plan: Clinically stable, continue present care, antibiotics for 6-8 weeks, staged debridement per podiatry Discussed with patient Problems: Consultation Date/Type/Reason Admit Date/Time Feb 20, 2017 at 04:07 Initial Consult Date 02/21/17 Type of Consultation: ID Referring Provider: SALLY BOLANOS Exam/Review of Systems Vital Signs Vitals Vital Signs Date Time Temp Pulse Resp B/P Pulse Ox O2 Delivery O2 Flow Rate FiO2 02/27/17 12:11 97.8 67 18 145/71 93 02/26/17 18:30 Room Air Intake and Output 02/26/17 02/26/17 02/27/17 15:00 23:00 07:00 Intake Total 1600 ml 1050 ml Output Total 1400 ml Balance 1600 ml -350 ml Results Result Diagram: 02/27/17 0753 02/27/17 0753 Results 24 hrs Laboratory Tests Test 02/26/17 17:29 02/26/17 20:30 02/27/17 07:50 02/27/17 07:53 Bedside Glucose 88 141 120 White Blood Count 7.9 Red Blood Count 4.62 L Hemoglobin 11.9 L Hematocrit 35.7 L Mean Corpuscular Volume 77.3 L Mean Corpuscular Hemoglobin 25.8 L Mean Corpuscular Hemoglobin Concent 33.3 Red Cell Distribution Width 13.9 Platelet Count 390 Mean Platelet Volume 9.8 Neutrophils % 70.5 Lymphocytes % 17.8 Monocytes % 7.6 Eosinophils % 2.2 Basophils % 0.4 Neutrophils # 5.6 Lymphocytes # 1.4 Monocytes # 0.6 Eosinophils # 0.2 Basophils # 0.0 Nucleated Red Blood Cells # 0.0 Sodium Level 142 Potassium Level 4.4 Chloride Level 103 Carbon Dioxide Level 29 Anion Gap 14 Blood Urea Nitrogen 8 Creatinine 0.70 Glucose Level 112 Calcium Level 7.9 L Magnesium Level 2.0 Test 02/27/17 12:21 02/27/17 12:57 Bedside Glucose 97 Vancomycin Level Trough 15.1 Medications Medications Current Medications Aspirin (Halfprin) 81 mg DAILY PO Last administered on 02/26/17 09:30; Admin Dose 81 MG; Start 02/20/17 at 09:00 Gabapentin (Neurontin) 600 mg BID PO Last administered on 02/26/17 20:31; Admin Dose 600 MG; Start 02/20/17 at 09:00 Insulin Glargine (Lantus) 20 unit BID@08,20 SC Last administered on 02/27/17 07:58; Admin Dose 20 UNIT; Start 02/20/17 at 08:30 Diagnostic Test (Pha) (Accu-Chek) 1 ea 02 XX ; Start 02/21/17 at 02:00 Ondansetron HCl (Zofran Inj) 4 mg Q6H PRN IV NAUSEA AND/OR VOMITING Last administered on 02/21/17 12:30; Admin Dose 4 MG; Start 02/20/17 at 08:30 Metoclopramide HCl (Reglan) 10 mg Q6H PRN IV NAUSEA AND/OR VOMITING Last administered on 02/20/17 15:56; Admin Dose 10 MG; Start 02/20/17 at 08:30 Acetaminophen (Tylenol Tab) 650 mg Q6H PRN PO PAIN LEVEL 1-3 OR FEVER; Start at 08:30 Acetaminophen/ Hydrocodone Bitart ([place] (5/325)) 1 tab Q6H PRN PO PAIN LEVEL 4 -6; Start 02/20/17 at 08:30 Acetaminophen/ Hydrocodone Bitart ([place] (5/325)) 2 tab Q6H PRN PO PAIN LEVEL 7 -10; Start 02/20/17 at 08:30 Morphine Sulfate (morphine) 2 mg Q4H PRN IV PAIN LEVEL 7-10; Start 02/20/17 at 08:30 Docusate Sodium (Colace) 100 mg Q12H PRN PO CONSTIPATION; Start 02/20/17 at 08: 30 Magnesium Hydroxide (Milk Of Mag) 30 ml DAILY PRN PO CONSTIPATION; Start at 08:30 Bisacodyl (Dulcolax Supp) 10 mg DAILY PRN [place] CONSTIPATION; Start 02/20/17 at 08 :30 Pantoprazole (Protonix Tab) 40 mg DAILY@06 PO Last administered on 02/26/17 05 :30; Admin Dose 40 MG; Start 02/21/17 at 06:00 Miscellaneous Information 1 ea NOTE XX ; Start 02/20/17 at 09:00 Glucose (Glutose) 15 gm Q15M PRN PO DECREASED GLUCOSE; Start 02/20/17 at 09:00 Glucose (Glutose) 22.5 gm Q15M PRN PO DECREASED GLUCOSE; Start 02/20/17 at 09: 00 Dextrose (D50w Syringe) 25 ml Q15M PRN IV DECREASED GLUCOSE; Start 02/20/17 at 09:00 Dextrose (D50w Syringe) 50 ml Q15M PRN IV DECREASED GLUCOSE; Start 02/20/17 at 09:00 Glucagon (Glucagen) 1 mg Q15M PRN IM DECREASED GLUCOSE; Start 02/20/17 at 09:00 Glucose (Glutose) 15 gm Q15M PRN BUCCAL DECREASED GLUCOSE; Start 02/20/17 at 09 :00 Enoxaparin Sodium (Lovenox) 30 mg BID SC Last administered on 02/26/17 09:35; Admin Dose 30 MG; Start 02/20/17 at 21:00; Status Future Hold Miscellaneous Information (Pending [facility] Order For Wound Care) This patient trujillo... PRN PRN XX WOUND CARE; Start 02/21/17 at 01:00 Levofloxacin (Levaquin) 750 mg DAILY@06 NGT Last administered on 02/26/17 05: 30; Admin Dose 750 MG; Start 02/25/17 at 06:00 Lactobacillus Acidophilus 1 each 1 each BID PO Last administered on 02/26/17 20:32; Admin Dose 1 EACH; Start 02/24/17 at 21:00 Vancomycin HCl 1.25 gm/Sodium Chloride 250 ml @ 83.333 mls/ hr Q8H IVPB Last administered on 02/27/17 14:16; Admin Dose 83.333 MLS/HR; Start 02/26/17 at 14: 00 Sodium Chloride (NS) 1,000 ml @ 100 mls/hr Q10H IV Last administered on 23:22; Admin Dose 100 MLS/HR; Start 02/26/17 at 22:30 BERNARDO LEW NP Feb 27, 2017 15:26
[2017-02-27] MEDS ORDERED: POLYMYXIN/BACITRACIN 1L IRRIG ONE (16:51)
[2017-02-27] MEDS ORDERED: POLYMYXIN B 500000 UNIT INJ ONE (16:51)
[2017-02-27] MEDS ORDERED: MEPERIDINE 25 MG INJ IV PRN (17:00)
[2017-02-27] MEDS ORDERED: EPHEDrine SULFATE 50 MG/5 ML SYG IV PRN (17:00)
[2017-02-27] MEDS ORDERED: ONDANSETRON 4 MG INJ IV PRN (17:00)
[2017-02-27] MEDS ORDERED: LABETALOL HCL 20MG INJ IV PRN (17:00)
[2017-02-27] MEDS ORDERED: HYDROmorphONE (0.2 MG/ML) 10ML SYG IV PRN (17:00)
[2017-02-27] MEDS ORDERED: PROCHLORPERAZINE 10 MG INJ IV PRN (17:00)
[2017-02-27] MEDS ORDERED: DIPHENHYDRAMINE 50 MG INJ IV PRN (17:00)
[2017-02-27] MEDS ORDERED: hydrALAzine 20 MG INJ IV PRN (17:00)
[2017-02-27] MEDS ORDERED: OXYCODONE/ACETAMINOPHEN (5/325) TAB PO PRN ×2 (17:00)
[2017-02-27] MEDS ORDERED: INSULIN ASPART [NOVOLOG] 3 ML PEN SC ONE (17:00)
[2017-02-27] MEDS ORDERED: FENTAnyl 50 MCG/ML VIAL IV PRN (17:00)
[2017-02-27] MEDS ORDERED: DEXTROSE 5%-0.45% NACL 1,000 ML IV ONE (17:27)
--- NOTE | 2017-02-27 17:31 | HPN ---
Date/Time of Note Date/Time of Note DATE: 02/27/17 TIME: 17:31 Interval H&P Admission Note Pt. seen H&P reviewed: No system changes BOOGIE GRIFFIN DPM Feb 27, 2017 17:31
--- NOTE | 2017-02-27 17:31 | PN ---
Date/Time of Note Date/Time of Note DATE: 02/27/17 TIME: 17:31 Assessment/Plan Lines/Catheters IV Catheter Type (from [facility]): PICC Line Lerma in Place (from [facility]): No Exam/Review of Systems Vital Signs Vitals Vital Signs Date Time Temp Pulse Resp B/P Pulse Ox O2 Delivery O2 Flow Rate FiO2 02/27/17 16:00 89 02/27/17 15:53 97.7 18 143/87 95 02/26/17 18:30 Room Air Intake and Output 02/26/17 02/26/17 02/27/17 15:00 23:00 07:00 Intake Total 1600 ml 1050 ml Output Total 1400 ml Balance 1600 ml -350 ml Results Result Diagram: 02/27/17 0753 02/27/17 0753 BOOGIE GRIFFIN DPM Feb 27, 2017 17:31
[2017-02-27] MEDS ORDERED: BUPIVACAINE 0.5% (SDV) 30 ML INJ ONE (17:43)
[2017-02-27] MEDS ORDERED: LIDOCAINE 2% (MDV) 20 ML INJ ONE (17:43)
[2017-02-27] MEDS ORDERED: MIDAZOLAM 1 MG/ML 2 ML INJ ONE (17:43)
[2017-02-27] MEDS ORDERED: BUPIVACAINE 0.25% (MPF) 30 ML INJ ONE (17:43)
[2017-02-27] MEDS ORDERED: METOCLOPRAMIDE 10 MG INJ ONE (17:49)
[2017-02-27] MEDS ORDERED: ONDANSETRON 4 MG INJ ONE (17:49)
[2017-02-27] MEDS ORDERED: FENTAnyl 50 MCG/ML VIAL ONE (17:52)
--- NOTE | 2017-02-27 18:28 | OPPN ---
Date/Time of Note Date/Time of Note DATE: 02/27/17 TIME: 18:26 Operative Report Preoperative Diagnosis Osteomyelitis of right big toe Osteomyelitis of left third toe Open wound of the right big toe Diabetes mellitus Peripheral neuropathy Peripheral vascular disease Postoperative Diagnosis Osteomyelitis of right big toe Osteomyelitis of left third toe Open wound of the right big toe Diabetes mellitus Peripheral neuropathy Peripheral vascular disease Operation/Procedure Performed Surgical debridement of right big toe with bone culture Surgical debridement of left third toe with bone culture Provider: BOOGIE GRIFFIN DPM Anesthesia: MAC Estimated blood loss: 0 - 10 ml's Specimens Bone culture right big toe Bone culture left third toe Wound culture left third toe Complications: None BOOGIE GRIFFIN DPM Feb 27, 2017 18:28
--- NOTE | 2017-02-27 18:28 | OPR ---
Date/Time of Note Date/Time of Note DATE: 02/27/17 TIME: 18:28 Operative Report Procedure Date: Feb 27, 2017 Preoperative Diagnosis Osteomyelitis of right big toe Osteomyelitis of left third toe Open wound of the right big toe Diabetes mellitus Peripheral neuropathy Peripheral vascular disease Postoperative Diagnosis Osteomyelitis of right big toe Osteomyelitis of left third toe Open wound of the right big toe Diabetes mellitus Peripheral neuropathy Peripheral vascular disease Operation Performed Surgical debridement of right big toe with bone culture Surgical debridement of left third toe with bone culture Surgeon: BOOGIE GRIFFIN DPM Anesthesia: MAC Estimated Blood Loss: 0 - 10 ml's Specimens Wound culture right big toe. Wound culture left third toe. Bone culture right hallux. Bone culture left third toe. Complications: None Pt Condition Post Procedure: stable Disposition: PACU Indications This is a pleasant 47-year-old male patient with multiple medical problems including diabetes mellitus with peripheral neuropathy who has been admitted to the hospital with infection of both feet. Patient was noted to have necrotic tissue along with malodor especially in the right big toe and the decision was made to do surgical incision and drainage with debridement and bone biopsy. Risks and complications of this type surgery was discussed with patient in great detail. Recent palpitations discussed, include but are not limited to, postoperative infection, postoperative pain, failure of surgery to correct problem, need for additional surgical procedures, deep venous thrombosis, limb loss and loss of life. Patient understands risks and complications and agrees to procedure. An informed consent was obtained, signed and placed in the chart. No guarantee or warranty was given or implied as to the outcome the procedure either in verbal or written form. Operative\Procedure Findings Open wound right hallux necrotic tissue and edema. Open wound left third toe with exposed bone. Procedure Description The patient was seen in the preoperative area. Proposed surgery was discussed with patient in great detail. Risks and complications were discussed in great detail. The patient was consented for surgery and a consent was obtained, signed and placed in the chart. Patient was then taken to the operating room and was placed on the operative table in supine position. General anesthesia was administered by the anesthesiologist. Bilateral feet with scrubbed, prepped and draped in usual aseptic manner. Attention was directed to the right hallux where an open wound was found on the plantar medial aspect. Surgical debridement was done using sharp instrumentation all the way down to bone. Bone culture was obtained. Necrotic tissue was surgically debrided and passed the back table. The wound was flushed with copious amounts of sterile normal saline. The toe was packed with iodoform packing. Sterile dressing was applied to the right big toe. Next, left third toe was debrided and distal open wound was found with exposed bone. Necrotic tissue was sharply debrided and passed to the table. The bone culture was obtained. The wound was flushed with copious loss of sterile normal saline. The left third toe was then covered in sterile dressing. Patient tolerated procedure and anesthesia well. He was transferred to the recovery room with vital signs stable and vascular status intact to both feet. Patient will be sent back to the floor after postoperative monitoring. Postoperative orders were written. Patient will be followed in-house. Nonweightbearing ordered for both feet. BOOGIE GRIFFIN DPM Feb 27, 2017 18:28
[2017-02-28] VITALS (7 sets, daily range): BP systolic 114–127; BP diastolic 65–68; PULSE 79–90; RESP 18–19
[2017-02-28] MEDS: ACCU-CHEK XX SCH (02:00)
[2017-02-28] MEDS: SOD CHLORIDE 0.9% 1,000 ML IV SCH (04:22)
[2017-02-28] MEDS: VANCOMYCIN 1.25 GM in SOD CHLORIDE 0.9% 250 ML IVPB SCH ×2 (06:20→13:05)
[2017-02-28] MEDS: PANTOPRAZOLE (EC) 40 MG TAB PO SCH (06:20)
[2017-02-28] MEDS: LEVOFLOXACIN 750 MG TABLET NGT SCH (06:20)
[2017-02-28] MEDS: METOCLOPRAMIDE 10 MG INJ IV SCH ×2 (06:21→13:03)
[2017-02-28 07:31] LABS: BASOPHILS % 0.5 % (0.0-2.0); EOSINOPHILS # 0.2 10^3/ul (0.0-0.5); EOSINOPHILS % 2.4 % (0.0-7.0); HEMATOCRIT 35.3 % (42.0-52.0); HEMOGLOBIN 11.8 g/dl (14.0-18.0); LYMPHOCYTES # 1.5 10^3/ul (0.8-2.9); LYMPHOCYTES % 18.6 % (15.0-51.0); MEAN CORPUSCULAR HEMOGLOBIN 25.7 pg (29.0-33.0); MEAN CORPUSCULAR HGB CONC 33.4 g/dl (32.0-37.0); MEAN CORPUSCULAR VOLUME 76.9 fl (82.0-101.0); MEAN PLATELET VOLUME 10.1 fl (7.4-10.4); MONOCYTE # 0.7 10^3/ul (0.3-0.9); MONOCYTES % 8.6 % (0.0-11.0); NEUTROPHIL # 5.4 10^3/ul (1.6-7.5); NEUTROPHILS % 68.9 % (39.0-77.0); PLATELET COUNT 386 10^3/UL (140-415); RED BLOOD COUNT 4.59 10^6/ul (4.70-6.10); RED CELL DISTRIBUTION WIDTH 14.1 % (11.5-14.5); WHITE BLOOD COUNT 7.9 10^3/ul (4.8-10.8)
[2017-02-28 07:49] LABS: CALCIUM 7.9 mg/dl (8.4-10.2); CREATININE 0.73 mg/dl (0.61-1.24); POTASSIUM 3.9 mmol/L (3.5-5.1)
[2017-02-28 07:53] LABS: MAGNESIUM 1.7 mg/dl (1.7-2.5); PHOSPHORUS 3.5 mg/dl (2.5-4.9)
[2017-02-28] MEDS: INSULIN ASPART [NOVOLOG] 3 ML PEN SC SCH ×4 (08:00→12:34)
[2017-02-28] MEDS: GABAPENTIN 300 MG CAP PO SCH (08:40)
[2017-02-28] MEDS: ASPIRIN (EC) 81 MG TAB PO SCH (08:40)
[2017-02-28] MEDS: L ACIDOPHIL/B LACTIS/B LONGUM CAPSULE PO SCH (08:40)
[2017-02-28] MEDS: INSULIN GLARGINE [LANtus] 3 ML PEN SC SCH (08:43)
--- NOTE | 2017-02-28 09:24 | RADRPT ---
PROCEDURE: XR Left foot. CLINICAL INDICATION: Left foot pain TECHNIQUE: Three views of the left foot were obtained. COMPARISON: Radiographs of the left foot February 21, 2017 FINDINGS: There is significant erosion of the third distal phalanx compatible with osteomyelitis. There is ov erlying soft tissue swelling. Alignment is normal. There are moderate midfoot degenerative changes with large dorsal talonavicular osteophytes. IMPRESSION: 1. Erosive changes of the third distal phalanx compatible with osteomyelitis. Consider MRI for furt her evaluation and to assess extent. 2. Forefoot soft tissue swelling with significant soft tissue swelling of the third digit where ther e is a dorsal skin ulceration and / or postoperative change. RPTAT: UU .Alvino Walsh MD, MD Date Time Electronically viewed and signed by .Alvino Walsh MD, on 02/28/2017 09:24 .K/
--- NOTE | 2017-02-28 09:33 | RADRPT ---
PROCEDURE: XR Foot. CLINICAL INDICATION: Right foot pain and swelling, concern for osteomyelitis TECHNIQUE: 3 views of the right foot are available for review. COMPARISON: MRI of the right foot dated February 21, 2017 FINDINGS: There is redemonstration of extensive osteomyelitis involving the first distal and proximal phalange s with erosive changes of bone. There is a large plantar skin ulceration at this location. There is forefoot soft tissue swelling. There moderate midfoot degenerative changes. There is calcaneal enthesopathy. IMPRESSION: 1. Extensive osteomyelitis of the first middle and distal phalanges with adjacent soft tissue swelli ng and plantar skin ulceration. 2. Consider MRI to assess for extent as clinically warranted. RPTAT: UU .Alvino Walsh MD, MD Date Time Electronically viewed and signed by .Alvino Walsh MD, on 02/28/2017 09:33 .K/
[2017-02-28] MEDS: ENOXAPARIN 30 MG/0.3 ML SYG SC SCH (13:05)
--- NOTE | 2017-02-28 14:12 | CONS ---
Date/Time of Note Date/Time of Note DATE: 02/28/17 TIME: 14:10 Assessment/Plan Assessment/Plan Chief Complaint/Hosp Course No acute events overnight. Patient is alert lying comfortably in bed, feels good no fevers Microbiology: Blood culture on February 20 growing bacillus species, wound culture growing Streptococcus Proteus mirabilis enterococcus species MRI of left foot revealed osteomyelitis involving the third middle and distal phalanges. MRI of the right foot revealed osteomyelitis of the first toe Antibiotics: Vancomycin, Levaquin Physical examination: Morbidly obese middle-aged man who is alert in no distress. Head atraumatic normocephalic sclera nonicteric. Neck is supple. Chest rise symmetrical breath sounds clear. Heart: S1-S2. Abdomen soft, bowel tones present. Extremities with bilateral lower extremity lymphedema edema and erythema. Assessment: 1. Bilateral lower extremity cellulitis with evidence of osteomyelitis per MRI and right big toe open wound 2. Bilateral lower extremities chronic lymphedema 3. Diabetes 4. Morbid obesity 5. Bacteremia consistent with contaminant 6. Status post sepsis Plan: Patient is status post surgical debridement of right big toe and left third toe, bone cultures sent, continue present care, antibiotics for 6-8 weeks , follow podiatry recommendations Discussed with patient Problems: Consultation Date/Type/Reason Admit Date/Time Feb 20, 2017 at 04:07 Initial Consult Date 02/21/17 Type of Consultation: ID Referring Provider: SALLY BOLANOS Exam/Review of Systems Vital Signs Vitals Vital Signs Date Time Temp Pulse Resp B/P Pulse Ox O2 Delivery O2 Flow Rate FiO2 02/28/17 12:16 81 02/28/17 12:14 98.6 18 127/67 94 02/27/17 19:33 Nasal Cannula 2.0 Intake and Output 02/27/17 02/27/17 02/28/17 15:00 23:00 07:00 Intake Total 170 ml 2100 ml Output Total 2 ml 2450 ml Balance 168 ml -350 ml Results Result Diagram: 02/28/17 0649 02/28/17 0649 Results 24 hrs Laboratory Tests Test 02/27/17 17:02 02/27/17 18:35 02/27/17 20:44 02/28/17 06:49 Bedside Glucose 79 83 72 White Blood Count 7.9 Red Blood Count 4.59 L Hemoglobin 11.8 L Hematocrit 35.3 L Mean Corpuscular Volume 76.9 L Mean Corpuscular Hemoglobin 25.7 L Mean Corpuscular Hemoglobin Concent 33.4 Red Cell Distribution Width 14.1 Platelet Count 386 Mean Platelet Volume 10.1 Neutrophils % 68.9 Lymphocytes % 18.6 Monocytes % 8.6 Eosinophils % 2.4 Basophils % 0.5 Nucleated Red Blood Cells % 0.0 Neutrophils # 5.4 Lymphocytes # 1.5 Monocytes # 0.7 Eosinophils # 0.2 Basophils # 0.0 Nucleated Red Blood Cells # 0.0 Sodium Level 143 Potassium Level 3.9 Chloride Level 102 Carbon Dioxide Level 30 Anion Gap 15 Blood Urea Nitrogen 6 L Creatinine 0.73 Glucose Level 111 Calcium Level 7.9 L Phosphorus Level 3.5 Magnesium Level 1.7 Test 02/28/17 08:20 02/28/17 12:28 Bedside Glucose 98 86 Medications Medications Current Medications Aspirin (Halfprin) 81 mg DAILY PO Last administered on 02/28/17 08:40; Admin Dose 81 MG; Start 02/20/17 at 09:00 Gabapentin (Neurontin) 600 mg BID PO Last administered on 02/28/17 08:40; Admin Dose 600 MG; Start 02/20/17 at 09:00 Insulin Glargine (Lantus) 20 unit BID@08,20 SC Last administered on 02/28/17 08:43; Admin Dose 20 UNIT; Start 02/20/17 at 08:30 Diagnostic Test (Pha) (Accu-Chek) 1 ea 02 XX ; Start 02/21/17 at 02:00 Ondansetron HCl (Zofran Inj) 4 mg Q6H PRN IV NAUSEA AND/OR VOMITING Last administered on 02/21/17 12:30; Admin Dose 4 MG; Start 02/20/17 at 08:30 Metoclopramide HCl (Reglan) 10 mg Q6H PRN IV NAUSEA AND/OR VOMITING Last administered on 02/20/17 15:56; Admin Dose 10 MG; Start 02/20/17 at 08:30 Acetaminophen (Tylenol Tab) 650 mg Q6H PRN PO PAIN LEVEL 1-3 OR FEVER; Start at 08:30 Acetaminophen/ Hydrocodone Bitart ([place] (5/325)) 1 tab Q6H PRN PO PAIN LEVEL 4 -6; Start 02/20/17 at 08:30 Acetaminophen/ Hydrocodone Bitart ([place] (5/325)) 2 tab Q6H PRN PO PAIN LEVEL 7 -10; Start 02/20/17 at 08:30 Morphine Sulfate (morphine) 2 mg Q4H PRN IV PAIN LEVEL 7-10; Start 02/20/17 at 08:30 Docusate Sodium (Colace) 100 mg Q12H PRN PO CONSTIPATION; Start 02/20/17 at 08: 30 Magnesium Hydroxide (Milk Of Mag) 30 ml DAILY PRN PO CONSTIPATION; Start at 08:30 Bisacodyl (Dulcolax Supp) 10 mg DAILY PRN AR CONSTIPATION; Start 02/20/17 at 08 :30 Pantoprazole (Protonix Tab) 40 mg DAILY@06 PO Last administered on 02/28/17 06 :20; Admin Dose 40 MG; Start 02/21/17 at 06:00 Miscellaneous Information 1 ea NOTE XX ; Start 02/20/17 at 09:00 Glucose (Glutose) 15 gm Q15M PRN PO DECREASED GLUCOSE; Start 02/20/17 at 09:00 Glucose (Glutose) 22.5 gm Q15M PRN PO DECREASED GLUCOSE; Start 02/20/17 at 09: 00 Dextrose (D50w Syringe) 25 ml Q15M PRN IV DECREASED GLUCOSE; Start 02/20/17 at 09:00 Dextrose (D50w Syringe) 50 ml Q15M PRN IV DECREASED GLUCOSE; Start 02/20/17 at 09:00 Glucagon (Glucagen) 1 mg Q15M PRN IM DECREASED GLUCOSE; Start 02/20/17 at 09:00 Glucose (Glutose) 15 gm Q15M PRN BUCCAL DECREASED GLUCOSE; Start 02/20/17 at 09 :00 Enoxaparin Sodium (Lovenox) 30 mg BID SC Last administered on 02/28/17 13:05; Admin Dose 30 MG; Start 02/20/17 at 21:00 [facility]iscellaneous Information [facility] This patient trujillo... PRN PRN XX WOUND CARE; Start 02/21/17 at 01:00 Levofloxacin (Levaquin) 750 mg DAILY@06 NGT Last administered on 02/28/17 06: 20; Admin Dose 750 MG; Start 02/25/17 at 06:00 Lactobacillus Acidophilus 1 each 1 each BID PO Last administered on 02/28/17 08:40; Admin Dose 1 EACH; Start 02/24/17 at 21:00 Vancomycin HCl 1.25 gm/Sodium Chloride 250 ml @ 83.333 mls/ hr Q8H IVPB Last administered on 02/28/17 13:05; Admin Dose 83.333 MLS/HR; Start 02/26/17 at 14: 00 Sodium Chloride (NS) 1,000 ml @ 100 mls/hr Q10H IV Last administered on 23:22; Admin Dose 100 MLS/HR; Start 02/26/17 at 22:30 BERNARDO LEW NP Feb 28, 2017 14:12
--- NOTE | 2017-03-02 10:40 | DS ---
DATE OF ADMISSION: 02/20/2017 DATE OF DISCHARGE: 02/28/2017 DISCHARGE DIAGNOSES: 1. Bilateral lower extremity cellulitis. 2. Gram-negative sharon sepsis. 3. Right great toe osteomyelitis. 4. Left 3rd toe osteomyelitis. 5. Status post incision, drainage, and bony resection of osteomyelitic bones. 6. Type 2 diabetes mellitus. 7. Diabetic vasculopathy. 8. Diabetic neuropathy. 9. Diabetic gastroparesis. 10. Chronic bilateral lower extremity edema secondary to poor venous return versus lymphedema. 11. Morbid obesity. HOSPITAL COURSE: This 47-year-old male presented to the emergency room with bilateral lower extremity cellulitis. Patient has poorly controlled diabetes mellitus. Blood cultures grew bacillus species which was pansensitive. He was seen in consultation by infectious disease specialists. Patient was placed on IV vancomycin and Levaquin. MRI showed osteomyelitis involving the right great toe and left 3rd toe. The patient was seen in consultation by Dr Knott. He underwent infusion and drainage of bilateral lower extremity wounds as well as bony resection. Patient has diabetic gastroparesis. Symptoms were much better controlled with Reglan before meals and at bedtime. He has chronic bilateral lower extremity edema, most likely secondary to lymphedema versus poor venous return. This was improved during the hospitalization. Patient also developed sinus tachycardia during the hospitalization. A CT angiogram of the chest was negative for PE. This has also resolved. Patient is morbidly obese. DISCHARGE CONDITION: He is in stable condition for transition to a correction facility. MEDICATIONS ON DISCHARGE: 1. Aspirin 81 mg daily. 2. Gabapentin 600 mg twice daily. 3. [place] 1 tablet every 6 hours as needed. 4. NovoLog insulin 15 units before each meal. 5. Lantus insulin 20 units twice daily. 6. Levaquin 750 mg p.o. daily. 7. IV vancomycin 1250 mg daily for 6 weeks. 8. Protonix 40 mg daily. FOLLOWUP: Continue local wound care. Follow up with PCP and Dr Knott. Dictated By: Vinnie Dukes MD /casper/leslie /Document#: [id number]
--- NOTE | 2017-03-05 07:23 | CONS ---
DATE OF ADMISSION: 02/20/2017 DATE OF CONSULTATION: 02/22/2017 INFECTIOUS DISEASE CONSULTATION: REASON FOR CONSULTATION: Antibiotic management. HISTORY OF PRESENT ILLNESS: Alvino Nevarez is a 47-year-old male with numerous problems, who comes in with shortness of breath and left lower extremity redness. His problems include: 1. Adult-onset diabetes mellitus/insulin dependent. 2. Diabetic neuropathy. 3. Likely diabetic gastroparesis. 4. Chronic diabetic foot ulcer, primarily the right lower extremity. The patient has poor hygiene. He was referred to Dr. Henning, the vascular surgeon, who sent him to the emergency room for evaluation. He also has been having increasing shortness of breath with episodes of fevers and chills. He has increased erythema of the left lower extremity as well. He has chronic wounds on his right lower extremity primarily with foul smell from his right lower extremity, which is chronic. The patient has been going to the clinic for the past 2 years. Recently changed to a new physician for insurance purposes. He had a Doppler of the lower extremity which was negative for DVT. CT angiogram of the chest due to an elevated D-dimer was negative for pulmonary embolus. He was treated for his lower extremity cellulitis with vancomycin and Levaquin. Lactic acid was between 2.5 and 3. Vital signs are stable. The patient is noncompliant, and his blood sugar was up to 440 on admission. He has currently diabetic foot cellulitis and infection. Vascular surgery, podiatry, and infectious disease were asked to see the patient. LABORATORY: On admission his white count was 17.0, H and H of 14.1 and 41. Platelet count was 279,000. BUN/creatinine were 10/1.09. Microbiology shows the urine to have mixed Gram- negative organisms. Blood cultures are negative. He has group G Streptococcus and Gram-negative rods on his wound cultures. The patient was started on vancomycin and also on Levaquin. His sepsis is likely secondary to cellulitis and a diabetic wound with probable osteomyelitis. PAST MEDICAL HISTORY: Operations as outlined. FAMILY HISTORY: Noncontributory. SOCIAL HISTORY: He does not smoke, drink, or abuse drugs. ALLERGIES: NONE TO PENICILLIN, SULFA, OR FOODS. MEDICATION: Per chart. REVIEW OF SYSTEMS: As per HPI. PHYSICAL EXAMINATION: GENERAL: Patient is an obese male who is alert, responsive, in no acute distress. VITAL SIGNS: Stable. T-max 98.9. SKIN: Without generalized rash. HEENT: Within normal limits. NECK: Supple. Lymph nodes not palpable. CHEST: Clear to percussion and auscultation. HEART: Without murmur or gallop. ABDOMEN: Soft, nontender. Without organomegaly, splenomegaly, or masses. EXTREMITIES: He has bilateral lower extremity edema, right greater than left. He has erythema, left leg greater than right, and he has a right foot ulcer. Both feet with areas of cyanosis and necrosis of the toes. Chronic ulcer on the right great toe with, as noted, foul smell. RECTOGENITAL: Deferred. NEUROLOGIC: Decreased sensation, distal extremities. IMPRESSION AND PLAN: Patient with possible osteomyelitis of the lower extremities, right greater than left. White count today of 12.7. An MRI of the foot was done which showed osteomyelitis of the 4th toe, distal phalanx, and proximal phalanx across the interphalangeal joint with bony destructive changes and an adjacent skin ulcer. No discrete drainable abscess. Also, hammertoe deformity and diffuse edema. An MRI of the foot on the left shows also findings suggestive of osteomyelitis of the 3rd, middle, and distal phalanges with abnormal marrow signal and bony destructive changes within the distal phalanx with an adjacent skin ulcer. So, the patient will require IV antibiotics for at least 6 weeks. He is currently on vancomycin and Levaquin. Should get a PICC line and arrangements made for home antibiotics. I will dictate my findings to the hospitalist and to the consultants. Dictated By: Alexander Chauhan MD JD/casper/leslie /Document#: [id number]
== END 2017-02-28 16:25 | DRG 854 ==
LOC: E/R 20:52 → MS4 02-20 04:07
PROVIDERS: ADMIT Internal Medicine; ATTEND Internal Medicine
PROC: 02HV33Z Insertion of Infusion Device into Superior Vena Cava, Percutaneous Approach (ICD-10-PCS; 2017-02-23)
PROC: 0QBR0ZZ Excision of Left Toe Phalanx, Open Approach (ICD-10-PCS; 2017-02-27)
PROC: 0QBQ0ZZ Excision of Right Toe Phalanx, Open Approach (ICD-10-PCS; principal; 2017-02-27 17:00)
DX: A41.50 Gram-negative sepsis, unspecified (principal); Z68.41 Body mass index [BMI] 40.0-44.9, adult; E11.621 Type 2 diabetes mellitus with foot ulcer; K31.84 Gastroparesis; L03.115 Cellulitis of right lower limb; E87.1 Hypo-osmolality and hyponatremia; E11.40 Type 2 diabetes mellitus with diabetic neuropathy, unspecified; L03.116 Cellulitis of left lower limb; M86.9 Osteomyelitis, unspecified; M86.8X7 Other osteomyelitis, ankle and foot; R65.20 Severe sepsis without septic shock; Z79.4 Long term (current) use of insulin; E66.01 Morbid (severe) obesity due to excess calories; E87.6 Hypokalemia; I89.0 Lymphedema, not elsewhere classified; R46.0 Very low level of personal hygiene; Z91.19 Patient's noncompliance with other medical treatment and regimen; E11.69 Type 2 diabetes mellitus with other specified complication; L97.519 Non-pressure chronic ulcer of other part of right foot with unspecified severity; E11.43 Type 2 diabetes mellitus with diabetic autonomic (poly)neuropathy; B95.4 Other streptococcus as the cause of diseases classified elsewhere; B96.4 Proteus (mirabilis) (morganii) as the cause of diseases classified elsewhere; B95.2 Enterococcus as the cause of diseases classified elsewhere; R10.9 Unspecified abdominal pain; R10.2 Pelvic and perineal pain
CPT/HCPCS: 36415; 36569; 36600; 71010; 71275; 73600; 73630; 73718; 75635; 76937; 80048; 80053; 80061; 80202; 81003; 82010; 82803; 82962; 83036; 83605; 83735; 83880; 84100; 84484; 85025; 85378; 85610; 85651; 85730; 86140; 87040; 87070; 87086; 87102; 87116; 93005; 93306; 93970; 96372; 96374; 96375; J1650; J1815; J1956; J2250; J2270; J2405; J2765; J3010; J3370; J3475; J3480; J7030; J7040; J7042; J7050; Q9967

== ENCOUNTER 2018-03-31 09:32 | Day surgery (SDC) | END 2018-03-31 16:30 | disposition home or self-care (01) ==